=== PATIENT | male | born 1950 | race Caucasian/White ===

== ENCOUNTER 2017-01-18 15:33 | Inpatient (IN) | payer MEDICARE, OTHER ==
[2017-01-18 15:39] VITALS: BMI 29.2
[2017-01-18] MEDS ORDERED: Sodium Chloride 0.9% 1,000 ML IV STA (16:48)
[2017-01-18 17:50] LABS: MEAN CELL VOLUME 63.6 fL (80.0-105.0); MEAN CORPUSCULAR HEMOGLOBIN 18.2 pg (25.0-35.0); MEAN CORPUSCULAR HGB CONC 28.6 g/dl (31.0-37.0); MEAN PLATELET VOLUME 8.1 fl (7.0-11.0); PLATELET COUNT 292 10^3/uL (120.0-450.0); RED CELL DISTRIBUTION WIDTH 19.8 % (11.5-14.5); WHITE BLOOD COUNT 7.8 10^3/ul (4.5-11.0)
[2017-01-18 17:53] LABS: HEMATOCRIT 19.9 % (42.0-52.0)
[2017-01-18 17:54] LABS: ADD MANUAL DIFF? YES
--- NOTE | 2017-01-18 18:02 | ED PDOC ---
Arrival/HPI - General Chief Complaint: Shortness Of Breath Time Seen by Provider: 01/18/17 16:44 - History of Present Illness Narrative History of Present Illness (Text): 01/18/17 17:58 66-year-old male with a history of anemia in the past, presents emergency Department with shortness of breath and dyspnea on exertion. Patient states that this feels identical to his previous anemia. Patient states that there are no relieving or exacerbating symptoms. Reports that he has had an endoscopy and colonoscopy in the past with no evidence of ulcers or malignancy. Patient states that he has had multiple blood transfusions in the past as well. Denies any chest pain. Past Medical History - Provider Review Nursing Documentation Reviewed: Yes - Infectious Disease Hx of Infectious Diseases: None - Cardiac Hx Hypertension: Yes - Pulmonary Hx Asthma: Yes Hx Chronic Obstructive Pulmonary Disease (COPD): Yes - Neurological Hx Neurological Disorder: No Other/Comment: sciatic nerve problems - HEENT Hx HEENT Disorder: Yes (WEARS GLASSES FOR VISION) - Renal Hx Renal Disorder: No - Endocrine/Metabolic Hx Endocrine Disorders: Yes Hx Diabetes Mellitus Type 2: Yes - Hematological/Oncological Hx Anemia: Yes - Integumentary Hx Dermatological Disorder: No - Musculoskeletal/Rheumatological Hx Arthritis: Yes Hx Osteoporosis: Yes Hx Rheumatoid Arthritis: Yes - Gastrointestinal Other/Comment: blood in stool "a long time ago" - Genitourinary/Gynecological Hx Genitourinary Disorders: No - Psychiatric Hx Psychophysiologic Disorder: No Hx Substance Use: No - Surgical History Hx Coronary Stent: Yes (6 STENT) - Anesthesia Hx Anesthesia: Yes Hx Anesthesia Reactions: No Hx Malignant Hyperthermia: No - Suicidal Assessment Feels Threatened In Home Enviroment: No Family/Social History Family/Social History: No Known Family HX Smoking Status: Former Smoker Hx Alcohol Use: No Hx Substance Use: No Allergies/Home Meds Allergies/Adverse Reactions: Allergies No Known Allergies Allergy (Verified 01/18/17 15:39) Home Medications: Home Meds Medication Instructions Recorded Confirmed Adalimumab [Humira Pen] 10/14/16 Albuterol 0.083% [Albuterol 0.083% 3 ml IH PRN PRN 10/14/16 10/14/16 Inhal Darleen (2.5 mg/3 ml) UD] Amlodipine/Valsartan [Exforge 1 each PO DAILY 10/14/16 10/14/16 5-320 mg Tablet] Fluticasone/Vilanterol [Breo 1 pow IH PRN PRN 10/14/16 10/14/16 Ellipta 100-25 Mcg INH] Isosorbide Mononitrate [Imdur] 30 mg PO BID 10/14/16 10/14/16 Linagliptin [Tradjenta] 5 mg PO BID 10/14/16 10/14/16 Metoprolol Tartrate [Lopressor] 25 mg PO DAILY 10/14/16 10/14/16 Montelukast [Singulair] 10 mg PO HS 10/14/16 10/14/16 Ranolazine [Ranexa] 500 mg PO DAILY 10/14/16 10/14/16 Ticagrelor [Brilinta] 90 mg PO BID 10/14/16 10/14/16 Umeclidinium [place] [Incruse 1 puff PO PRN PRN 10/14/16 10/14/16 Ellipta] Physical Exam - Physical Exam Narrative Physical Exam (Text): - Review of Systems Constitutional: Normal. absent: Fatigue, Weight Change, Fevers Eyes: Normal ENT: denies sore throat, denies tristhmus Respiratory: SOB, LYONS. absent: Cough, Sputum Cardiovascular: absent: Chest Pain, Palpitations, Syncope Gastrointestinal: Normal. absent: Abdominal Pain, Diarrhea, Nausea, Vomiting Genitourinary: Normal. absent: Dysuria, Frequency, Hematuria Musculoskeletal: Normal. absent: Arthralgias, Back Pain, Neck Pain Skin: no rashes, no erythema Neurological: absent: Focal Weakness Endocrine: Normal Hemo/Lymphatic: Normal Psychiatric: No suicidal or homicidal ideations Physical exam Patient appears age appropriate in no distress, speaking full sentences without difficulty - Systems Exam Head: Present: Atraumatic, Normocephalic Pupils: Present: PERRL Extroacular Muscles: Present: EOMI Conjunctiva: Present: Normal Mouth: Present: Moist Mucous Membranes Neck: Present: Normal Range of Motion. No: MIDLINE TENDERNESS, Paraspinal Tenderness Respiratory/Chest: Present: Clear to Auscultation, Good Air Exchange. No: Respiratory Distress, Accessory Muscle Use, Tachypneic Cardiovascular: Present: Regular Rate and Rhythm, Normal S1, S2, Peripheal Pulses Present. No: Murmurs Abdomen: Present: Normal Bowel Sounds. No: Tenderness, Distention, Peritoneal Signs, Rebound, Guarding Back: Present: Normal Inspection. No: Midline Tenderness, Paraspinal Tenderness Upper Extremity: Present: Normal Inspection. No: Cyanosis, Edema Lower Extremity: Present: Normal Inspection. No: Edema Neurological: Present: GCS=15, Speech Normal, cranial nerves II through XII fully intact with no cerebellar abnormality, neurosensory fully intact. No focal neurological deficits. Skin: Present: Warm, Dry, Normal Color. No: Rashes Lymphatic: Present: OX3, NI, NC Psychiatric: Present: Alert, Oriented x 3, Normal Insight, Normal Concentration Vital Signs Reviewed: Yes Vital Signs Temp Pulse Resp BP Pulse Ox 01/18/17 17:06 89 18 116/69 99 01/18/17 15:43 98.3 F 98 H 18 118/71 99 Temperature: Afebrile Blood Pressure: Normal Pulse: Regular Respiratory Rate: Normal Appearance: Positive for: Well-Appearing Pain Distress: None Mental Status: Positive for: Alert and Oriented X 3 Medical Decision Making ED Course and Treatment: 01/18/17 18:02 66-year-old male with history of anemia and transfusions in the past, presents with shortness of breath and dyspnea and exertion. Guaiac negative, performed by Dulce GAVIN Case discussed with Dr. Drake, agrees with telemetry admission and transfusion of 3 units PRBCs. Patients vital signs stable, currently no distress, aware of and agrees with plan. EKG, sinus tach, 100 bpm, no ST segment elevations, normal intervals. Interpreted by me. Chest xray interpreted by ED physician shows no pneumothorax, no cardiomegaly, no infiltrates - Lab Interpretations Lab Results: 01/18/17 17:35 Lab Results 01/18/17 17:35: WBC 7.8, RBC 3.13 L, Hgb 5.7 L*, Hct 19.9 L*, MCV 63.6 L, MCH 18.2 L, MCHC 28.6 L, RDW 19.8 H, Plt Count 292, MPV 8.1, Neutrophils % (Manual) Pending, Lymphocytes % (Manual) Pending, Monocytes % (Manual) Pending, Blood Type Pending, Antibody Screen Pending, BBK History Checked Patient has bt - RAD Interpretation Radiology Orders: 01/18/17 16:47 CHEST PORTABLE [RAD] Stat - Medication Orders Current Medication Orders: Discontinued Medications Sodium Chloride (Sodium Chloride 0.9%) 1,000 mls @ 1,000 mls/hr IV .Q1H STA Stop: 01/18/17 17:47 Pantoprazole Sodium (Protonix Inj) 40 mg IVP STAT STA Stop: 01/18/17 16:49 Disposition/Present on Arrival - Present on Arrival Any Indicators Present on Arrival: No History of DVT/PE: No History of Uncontrolled Diabetes: No Urinary Catheter: No History of Decub. Ulcer: No History Surgical Site Infection Following: None - Disposition Have Diagnosis and Disposition been Completed?: Yes Diagnosis: Anemia Disposition: HOSPITALIZED Disposition Time: 17:58 Patient Plan: Admission Patient Problems: Current Active Problems Problem Status Diagnosed Anemia Acute Condition: FAIR
[2017-01-18 18:06] LABS: ALB/GLOB RATIO 1.4 (1.1-1.8); ALKALINE PHOSPHATASE 65 U/L (38-133); ALT/SGPT 14 U/L (7-56); AST/SGOT 78 U/L (15-59); BILIRUBIN,TOTAL 0.5 mg/dL (0.2-1.3); BLOOD UREA NITROGEN 15 mg/dL (7-21); CALCIUM 8.6 mg/dL (8.4-10.5); CARBON DIOXIDE 26 mmol/L (21-33); CHLORIDE 102 mmol/L (98-107); GFR AFRICAN-AMERICAN > 60; GLUCOSE,RANDOM 114 mg/dL (70-110); INR 0.99 (0.93-1.08); PARTIAL THROMBOPLASTIN TIME 24.5 Seconds (23.7-30.8); POTASSIUM 4.1 mmol/L (3.6-5.0); SODIUM 139 mmol/L (132-148); TOTAL PROTEIN 6.7 g/dL (5.8-8.3)
[2017-01-18 18:20] LABS: TROPONIN I < 0.01 ng/mL
[2017-01-18 18:50] LABS: ANISOCYTOSIS SLIGHT; EOSINOPHIL 3 % (0.0-3.0); HYPOCHROMIA 3+; MICROCYTOSIS 1+; NEUTROPHIL 79 % (50.0-70.0); PLATELET ESTIMATE NORMAL (NORMAL)
[2017-01-18 18:51] LABS: OVALOCYTES 1+; STOMATOCYTE SLIGHT
[2017-01-18 20:22] LABS: IRON 12 ug/dL (45-180)
--- NOTE | 2017-01-18 20:54 | CARD ---
APPROVED REPORT EKG Measurement Heart [id number] <Conclusion> Sinus tachycardia Otherwise normal ECG
[2017-01-18] MEDS ORDERED: Levalbuterol 1.25 MG/3 ML Inhal Soln UD IH PRN (21:58)
[2017-01-18 22:12] LABS: FOLATE > 20.0 ng/mL
[2017-01-18] MEDS ORDERED: Iron Sucrose 100 mg/5 ml Inj (RENAL) IVP SCH (22:15)
[2017-01-19] MEDS: Insulin Lispro (humaLOG) MEDIUM Coverage SC SCH ×4 (08:03→21:55)
--- NOTE | 2017-01-19 08:29 | RAD ---
HISTORY: cough COMPARISON: No prior. FINDINGS: LUNGS: Linear hazy opacities or infiltrate at the right lower lung may represent prominent lung markings which also. PLEURA: No significant pleural effusion identified, no pneumothorax apparent. CARDIOVASCULAR: The cardiac silhouette is prominent in size. Coronary artery calcification are noted. OSSEOUS STRUCTURES: No significant abnormalities. VISUALIZED UPPER ABDOMEN: Normal. OTHER FINDINGS: None. IMPRESSION: Questionable small opacity at the right lower lung. Correlate clinically for pneumonia.
--- NOTE | 2017-01-19 08:39 | HP ---
HISTORY OF PRESENT ILLNESS: The patient is a 66-year-old, known to me from office practice, who came to Emergency Room because of generalized weakness, feeling very tired with shortness of breath with minimal activity. Denies any fever or chills. No history of nausea but generalized weakness. He wa s admitted in 10/2016. At that point, he had GI bleed. He had endoscopy and colonoscopy done and wa s found to have bleeding ulcer. Prior to that, he had cardiac cath done and he has a drug-eluting st ent to [facility]. At that point, he was started on Brilinta because of his active GI bleed. His Brilinta was discontinued; however, he was kept on Plavix and aspirin, and he was given high dose PPI with Car afate. PAST MEDICAL HISTORY: Also significant for: 1. Hypertension. 2. Hyperlipidemia. 3. History of gastrointestinal bleed in the past. 4. Status post bleeding ulcer. 5. History of pulmonary hypertension. ALLERGIES: He is not allergic to any medications. MEDICATIONS AT HOME: 1. He is on Ellipta. 2. He is on Brilinta 90 mg twice a day. 3. Ranexa 500 daily. 4. Protonix 40 twice a day. 5. Singulair 10 mg at bedtime. 6. Metoprolol 25 daily. 7. Tradjenta 5 mg twice a day. 8. He is getting Exforge. 9. He is getting Humira via pen. SOCIAL HISTORY: He is , lives with his . History of smoking in the past. REVIEW OF SYSTEMS: Significant for generalized weakness and lethargy. PHYSICAL EXAMINATION: GENERAL: Looks pale, tired, mild shortness of breath. VITAL SIGNS: He is afebrile, pulse 84, respirations 16, blood pressure 141/60. LUNGS: Bilateral fair airflow, no rhonchi or crackle. HEART: S1, S2 audible. ABDOMEN: Soft, obese, nontender, no rebound, no guarding. NEUROLOGIC: He is awake and alert and communicative. LABORATORY DATA: WBC 7.8, hemoglobin 5.7, hematocrit 19, platelet of 292. PT 10.7, INR 0.99. Chemi stry: Sodium 139, potassium 4.1, chloride 102, CO2 26, BUN 15, creatinine 1.4. Blood sugar of 114. Iron 12, TIBC is 423. ASSESSMENT: 1. Symptomatic anemia. 2. Probably bleeding ulcer. 3. Coronary artery disease, status post angioplasty and had drug-eluting stent placed in right coron hermelinda artery. 4. Ttp-[id number]-epjvulwqd diabetes. 5. Status post proximal left anterior descending angioplasty. 6. Status post angioplasty of obtuse marginal branch of left circumflex, status post mid right coron hermelinda artery stent. 7. Hyperlipidemia. 8. Chronic obstructive pulmonary disease. PLAN: The patient will be given 3 blood transfusions. He will be started on his usual medications i ncluding Ranexa, isosorbide, Lasix, metoprolol, Plavix. He will be given high dose PPI, Protonix 40 q. 12. I will start him on Carafate. Follow up his H and H in the a.m. Cardiology consult by Dr. Arnaud quan, GI consult by Dr. Leavitt and oncology consult by Dr. Castorena has been requested. Will follow up his CBC and CMP in the a.m. Will reevaluate this patient in the a.m. Arlette Drake MD cc: [phone] TT: 01/19/2017 08:38:57 fallon
[2017-01-19] MEDS ORDERED: Barium Sulfate Susp 2.1% w/v, 2.0% w/w 450 mL Bottle PO ONE (09:08)
[2017-01-19] MEDS ORDERED: Iohexol 350 MG/100 ML VIAL ONE (09:20)
--- NOTE | 2017-01-19 10:03 | CON ---
DATE: 01/19/2017 REQUESTED BY: Dr. Drake. REASON FOR CONSULTATION: Severe anemia, GI bleed. HISTORY OF PRESENT ILLNESS: The patient is a 66-year-old male admitted to the ER with hemoglobin of 5 g/dL and shortness of breath. He had a similar episode a few years old when he received blood transfusion. He had endoscopy done in which was negative for any source of bleeding. He also had colonoscopy done in 2014 which was negative for bleeding source. He noticed dark-colored stools for a week a month ago. Denies any abdominal pain. No shortness of breath. He also has history of rheumatoid arthritis. He is taking humira twice a month, sees Dr. Vera for that. Rheumatoid arthritis is under control. He also has coronary artery disease for which he takes Brilinta and aspirin. Recent cardiac stents. No issues right now, stable disease. He also has COPD for which he occasionally gets oral steroids. No recent exacerbation now. PAST MEDICAL HISTORY: COPD, CAD, rheumatoid arthritis, diabetes mellitus type 2 , osteoporosis. PAST SURGICAL HISTORY: Coronary artery stent placed. PERSONAL HISTORY: Former smoker. No history of alcohol abuse. SOCIAL HISTORY: Lives at home. FAMILY HISTORY: No positive family history in mother or father. ALLERGIES: No known drug allergies. REVIEW SYSTEMS : as per HPI, rest 12 point system reviewed negative. HOME MEDICATIONS: Humira twice a month. Amlodipine/valsartan 5/320 mg 1 daily , Imdur 30 mg p.o. b.i.d., Tradjenta 5 mg p.o. b.i.d., metoprolol 25 mg daily, Singulair 10 mg p.o. at bedtime, Ranexa 500 mg daily, Brilinta 90 mg p.o. b.i.d. REVIEW OF SYSTEMS: As per HPI. Rest of 12-point review of systems reviewed and negative. PHYSICAL EXAMINATION: GENERAL: Comfortable in bed, in no acute distress. VITAL SIGNS: Temperature 98.6, heart rate 98 per minute, respiratory 15 per minute, blood pressure 110/70, pulse ox is 99% on room air. HEENT: Normal. Oral mucosa pale. Moist. NECK: No lymphadenopathy. CHEST: Air entry present, equal bilateral. No added sound. CARDIOVASCULAR: S1, S2 normal. No murmur, no gallop. ABDOMEN: Soft, nontender, no hepatosplenomegaly. EXTREMITIES: No edema. SKIN: Intact. No petechia, no rashes. CENTRAL NERVOUS SYSTEM: Alert, oriented x 3, no focal sensorimotor deficit. SPINE: No tenderness. SKIN: no rash, no petechie. LABORATORY DATA: White count 7.8, hemoglobin 5.7, hematocrit 19.9, platelet count 298. Sodium 139, potassium 4.1, calcium 8.6. Iron 12, percentage saturation 3%. AST 78, ALT 14, alkaline phosphatase 65. B12 409, folate more than 20. Coags within normal limit. ASSESSMENT: 1. Severe iron deficiency anemia. 2. Possible gastrointestinal bleed. 3. Rheumatoid arthritis. 4. Hypertension. 5. Coronary artery disease. 6. Chronic obstructive pulmonary disease. PLAN: 1. Anemia, multifactorial, severe iron deficiency, might be related to chronic GI bleed. He might have iron absorption defect due to chronic disease. He is on Humira which predisposes for non-Hodgkin's lymphoma. We will do CAT scan chest, abdomen, and pelvis to rule out occult malignancy. He will need continuation of IV iron on discharge from the hospital. B12, folate levels are within normal limits. He received 3 units of blood transfusion since admission to the hospital. He had EGD and colonoscopy with Dr. Patterson in [place] at [facility]. He is scheduled for capsule endoscopy on 01/26/2017 and I advised him to keep that appointment. He will need capsule endoscopy to find the source of occult GI bleed. GI consultation with Dr. Leavitt requested. CAT scan chest, abdomen, and pelvis with p.o. and IV contrast ordered. Discussed all of the above with the patient. 2. COPD, no issues right now. 3. CAD, stable on aspirin, plavix. cannot hold both due to recent cardiac stents , discussed with Dr. Drake. 4. Pulmonary : stable. 5. Rheumatoid arthritis: on humira twice a month. Humira may increase the risk of NHL. CT scans to r/o any suspicious lesions. 6. renal : BUN, creatinine stable. Thank you, Dr. Drake, for allowing us to participate in the patient's care. Sandi Castorena MD cc: [id number] TT: 01/19/2017 09:58:50 Confirmation # [id number] Dictation # [id number] tn 01/19/2017 09:02:39 MTDD
[2017-01-19 11:00] LABS: ADD MANUAL DIFF? NO
[2017-01-19 11:03] LABS: BASO # 0.02 K/mm3 (0.0-2.0); BASO % 0.2 % (0.0-3.0); EOS # 0.3 (0.0-0.7); EOS % 2.9 % (1.5-5.0); GRAN # 6.45 (1.4-6.5); GRAN % 73.9 % (50.0-68.0); LYMPH # 0.9 (1.2-3.4); LYMPH % 10.6 % (22.0-35.0); MEAN CELL VOLUME 69.4 fL (80.0-105.0); MEAN CORPUSCULAR HEMOGLOBIN 21.8 pg (25.0-35.0); MEAN CORPUSCULAR HGB CONC 31.4 g/dl (31.0-37.0); MONO # 1.1 (0.1-0.6); MONO % 12.4 % (1.0-6.0); PLATELET COUNT 219 10^3/uL (120.0-450.0); RED CELL DISTRIBUTION WIDTH 21.6 % (11.5-14.5); WHITE BLOOD COUNT 8.7 10^3/ul (4.5-11.0)
[2017-01-19 11:13] LABS: ALB/GLOB RATIO 1.3 (1.1-1.8); ALKALINE PHOSPHATASE 65 U/L (38-133); ALT/SGPT 7 U/L (7-56); AST/SGOT 20 U/L (15-59); BLOOD UREA NITROGEN 12 mg/dL (7-21); CALCIUM 8.6 mg/dL (8.4-10.5); CARBON DIOXIDE 28 mmol/L (21-33); CHLORIDE 99 mmol/L (98-107); GFR AFRICAN-AMERICAN > 60; GLUCOSE,RANDOM 119 mg/dL (70-110); POTASSIUM 3.6 mmol/L (3.6-5.0); SODIUM 138 mmol/L (132-148)
--- NOTE | 2017-01-19 14:09 | PN ---
DATE: 01/19/2017 The patient is 66 years old. The patient stated he has not been feeling well for a few days, getting easily short of breath and he felt just like that when he had GI bleed late last year. So, he came to ER, was found to have hemoglobin of 5.8. Received 3 blood transfusions, feels a little better. S till has shortness of breath. No chest pain. Received 3 blood transfusions overnight. PHYSICAL EXAMINATION: VITAL SIGNS: He is afebrile, pulse 76, respirations 18, blood pressure 116/67. LUNGS: Bilateral fair airflow, no rhonchi or crackle. HEART: S1, S2 audible. ABDOMEN: Soft, obese, nontender. No rebound, no guarding. NEUROLOGIC: The patient is awake and alert, able to communicate, moves all extremities. LABORATORY EXAM: WBC is 8.7, hemoglobin 9.1, hematocrit 29, platelet is 219. Chemistry: Sodium 138 , potassium 3.6, chloride 99, CO2 of 28, BUN 12, creatinine 1.4. Blood sugar is 119. Iron level is 12, saturation is 3. Stool for Hemoccult is positive. ASSESSMENT AND PLAN: 1. Coronary artery disease, status post recent angioplasty. 2. History of rheumatoid arthritis, on Humira. He gets it from Dr. Vera twice a month. 3. Gastrointestinal bleed status post endoscopy and colonoscopy late last year. He was scheduled to have capsule endoscopy done by Dr. Dunn as a followup, but he never got a chance to go there. 4. Hypertension. 5. Hyperlipidemia. 6. Smt-jpieksn-xvmsdnvtr diabetes. PLAN: The question is that should we start patient on aspirin and Plavix. Since he had a stent plac ed late last year, he should be on anticoagulant. Awaiting cardiology input and GI input. ____ has been consulted and awaiting his input. The patient scheduled to have CT scan of the abdomen and pelvis done to rule out lymphadenopathy, rule out underlying lymphoma because of immunomodulators. Richa damon will follow up CBC and CMP in a.m. Arlette Drake MD cc: [phone] TT: 01/19/2017 14:09:04 Confirmation # [id number] Dictation # [id number]
[2017-01-19] MEDS: Non Formulary Medication (Ranolazine [Ranexa] 500 MG) PO SCH (14:28)
[2017-01-19] MEDS: Sucralfate 1 gm/10 ml Oral Susp UD PO SCH ×2 (14:29→17:31)
--- NOTE | 2017-01-19 14:31 | CP.PCM.CON ---
History of Present Illness - History of Present Illness History of Present Illness: CC: Shortness of breath Chronic medical conditions 1. Atherosclerotic heart disease 2. Rheumatoid arthritis 3. COPD 4. HTN Presents to [facility] with increased faitgue and shortenss of breath. This is occuring in the context of severe anemia. He is reporting improvement in fatigue after PRBC transfusion. He is denying angina. Review of Systems - Review of Systems All systems: reviewed and no additional remarkable complaints except Past Patient History - Infectious Disease Hx of Infectious Diseases: None - Past Medical History & Family History Past Medical History?: Yes - Past Social History Smoking Status: Former Smoker - CARDIAC Hx Cardiac Disorders: Yes Hx Hypercholesterolemia: Yes Hx Hypertension: Yes - PULMONARY Hx Respiratory Disorders: Yes Hx Asthma: Yes Hx Chronic Obstructive Pulmonary Disease (COPD): Yes - NEUROLOGICAL Hx Neurological Disorder: No Other/Comment: sciatica - HEENT Hx HEENT Problems: No (wears glasses) - RENAL Hx Chronic Kidney Disease: No - ENDOCRINE/METABOLIC Hx Endocrine Disorders: Yes Hx Diabetes Mellitus Type 2: Yes - HEMATOLOGICAL/ONCOLOGICAL Hx Blood Disorders: Yes Hx Anemia: Yes (with transfusion) - INTEGUMENTARY Hx Dermatological Problems: No - MUSCULOSKELETAL/RHEUMATOLOGICAL Hx Musculoskeletal Disorders: Yes Hx Arthritis: Yes Hx Falls: No Hx Osteoarthritis: Yes Hx Spinal Stenosis: Yes Other/Comment: RA - GASTROINTESTINAL Hx Gastrointestinal Disorders: Yes Other/Comment: GI bleed, duodenitis, esophagitis, gastritis - GENITOURINARY/GYNECOLOGICAL Hx Genitourinary Disorders: No - PSYCHIATRIC Hx Psychophysiologic Disorder: No Hx Substance Use: No - SURGICAL HISTORY Hx Surgeries: No Hx Cardiac Catheterization: Yes Hx Coronary Stent: Yes Other/Comment: EGD, colonoscopy - ANESTHESIA Hx Anesthesia: Yes Hx Anesthesia Reactions: No Hx Malignant Hyperthermia: No Meds Allergies/Adverse Reactions: Allergies Allergy/AdvReac Type Severity Reaction Status Date / Time No Known Allergies Allergy Verified 01/18/17 15:39 - Medications Medications: Current Medications Amlodipine Besylate (Norvasc) 10 mg PO DAILY [facility] Last Admin: 01/19/17 10:15 Dose: 10 mg Aspirin (Ecotrin) 81 mg PO DAILY [facility] Last Admin: 01/19/17 12:00 Dose: Not Given Clopidogrel Bisulfate (Plavix) 75 mg PO DAILY [facility] Last Admin: 01/19/17 12:01 Dose: Not Given Furosemide (Lasix) 40 mg IVP DAILY [facility] Last Admin: 01/19/17 10:15 Dose: 40 mg Insulin Human Lispro (Humalog Med) 0 units SC ACHS DONNY PRN Reason: Protocol Last Admin: 01/19/17 13:52 Dose: Not Given Isosorbide Mononitrate (Imdur) 30 mg PO BID [facility] Last Admin: 01/19/17 10:15 Dose: 30 mg Levalbuterol HCl (Xopenex) 1.25 mg IH [id number] PRN PRN Reason: Shortness of Breath Metoprolol Tartrate (Lopressor) 25 mg PO DAILY [facility] Last Admin: 01/19/17 10:15 Dose: 25 mg Montelukast Sodium (Singulair) 10 mg PO HS [facility] Last Admin: 01/19/17 00:33 Dose: 10 mg Non-Formulary Medication (Ranolazine [Ranexa]) 500 mg PO DAILY [facility] Ondansetron HCl (Zofran Inj) 4 mg IVP Q6H PRN PRN Reason: Nausea/Vomiting Pantoprazole Sodium (Protonix Inj) 40 mg IVP BID [facility] Last Admin: 01/19/17 10:16 Dose: 40 mg Sucralfate (Carafate Oral Susp) 1 gm PO TID [facility] Physical Exam - Constitutional Appears: Well, Non-toxic - Head Exam Head Exam: ATRAUMATIC, NORMAL INSPECTION - Eye Exam Eye Exam: PERRL. absent: Scleral icterus - ENT Exam ENT Exam: Mucous Membranes Moist, Normal External Ear Exam - Neck Exam Neck exam: Positive for: Full Rom. Negative for: Thyromegaly - Respiratory Exam Respiratory Exam: Wheezes, NORMAL BREATHING PATTERN - Cardiovascular Exam Cardiovascular Exam: REGULAR RHYTHM, +S1, +S2, +S4. absent: JVD - GI/Abdominal Exam GI & Abdominal Exam: Normal Bowel Sounds. absent: Organomegaly Results - Vital Signs Recent Vital Signs: Last Vital Signs Temp 98.4 F 01/19/17 12:00 Pulse 74 01/19/17 12:00 Resp 20 01/19/17 12:00 BP 120/71 01/19/17 12:00 Pulse Ox 96 01/19/17 05:15 - Labs Result Diagrams: 01/19/17 20:21 01/19/17 10:45 Labs: Laboratory Results - last 24 hr 01/19/17 01/19/17 10:45 11:17 WBC 8.7 RBC 4.18 Hgb 9.1 L Hct 29.0 L MCV 69.4 L MCH 21.8 L MCHC 31.4 RDW 21.6 H Plt Count 219 MPV 8.0 Gran % 73.9 H Lymph % (Auto) 10.6 L [place] % (Auto) 12.4 H Eos % (Auto) 2.9 Baso % (Auto) 0.2 Gran # 6.45 Lymph # 0.9 L [place] # 1.1 H Eos # 0.3 Baso # 0.02 Sodium 138 Potassium 3.6 Chloride 99 Carbon Dioxide 28 Anion Gap 15 BUN 12 Creatinine 1.4 Est GFR ( Amer) > 60 Est GFR (Non-Af Amer) 51 Random Glucose 119 H Calcium 8.6 Total Bilirubin 1.0 AST 20 ALT 7 Alkaline Phosphatase 65 Total Protein 7.0 Albumin 4.0 Globulin 3.0 Albumin/Globulin Ratio 1.3 Stool Occult Blood Positive H - EKG Data EKG Interpreted by: Myself EKG shows normal: Sinus rhythm Assessment & Plan - Assessment and Plan (Free Text) Assessment: 66 year old man with acute blood loss anemia due to upper GI bleed. He has received several units of PRBC. He GI pathology is unmasked by his need for dual antiplatelet therapy. This is for a drug eluting stent placed less than 12 months ago. continue transfusion support as long as he is actively bleeding. GI work up is pending. I agree with holding anti platelet until active bleeding is treated. - Date & Time Date: 01/19/17 Time: 14:33
--- NOTE | 2017-01-19 14:38 | CP.PCM.CON ---
<Chriss Armijo - Last Filed: 01/19/17 18:14> History of Present Illness - History of Present Illness History of Present Illness: PGY4 GI Fellow Consult Note Patient is a 66yo male with PMHx significant for HTN, HLD, PUD, pulmonary hypertension, CAD, diabetes mellitus, COPD who presented to the ED with complaint of generalized malaise and shortness of breath. Patient has a history of anemia requiring transfusions with extensive GI work up including recent EGD in October 2016 which revelaed LA class B esophagitis and a FC3 gastric ulcer. Colonoscopy in 2014 was unremarkable with the exception of two polyps. He has had persistently positive FOBT. Patient is scheduled for outpatient capsule endoscopy on 01/26/17. In the days leading up to admission he became progressively more fatigued and SOB, which signaled to him that he was becomming more anemic. He admits that walking outside is difficult under the best of circumstances as the cold air affects his asthma/COPD but it had worsened more than usual prompting his ED visit. On arrival, lab work revealed a HGB of 5.7. He has since been transfused 3 units PRBCs and is feeling better at this time. Denies any melena, hematochezia, hematemesis, hematuria. PMHx: See HPI PSHx: PCI with MICHOACANO to RCA FHx: Mother - HTN Social: Prior smoker, denies EtOH or illicit drug use Endo: 10/2016 - EGD - LA Class B esophagitis, PUD (gastric ulcer) 10/2015 - Colonoscopy - Transverse colon polyp (tubular adenoma) Review of Systems - Constitutional Constitutional: Fatigue, Weakness. absent: Anorexia, Chills, Fever, Weight Gain , Weight Loss - EENT Eyes: absent: Change in Vision Nose/Mouth/Throat: absent: Sore Throat - Cardiovascular Cardiovascular: absent: Chest Pain, Dyspnea - Respiratory Respiratory: absent: Cough, Dyspnea, Excessive Mucous Production - Gastrointestinal Gastrointestinal: absent: Abdominal Pain, Constipation, Cramping, Diarrhea, Dysphagia, Hematemesis, Hematochezia, Melena, Nausea, Odynophagia, Vomiting - Genitourinary Genitourinary: absent: Dysuria, Urinary Frequency, Urinary Urgency - Integumentary Integumentary: absent: New Lesions, Rash - Neurological Neurological: absent: Dizziness, Numbness, Focal Weakness - Psychiatric Psychiatric: absent: Anxiety, Depression - Endocrine Endocrine: absent: Polydipsia, Polyphagia, Polyuria - Hematologic/Lymphatic Hematologic: absent: Easy Bleeding, Easy Bruising, Lymphadenopathy Past Patient History - Infectious Disease Hx of Infectious Diseases: None - Past Medical History & Family History Past Medical History?: Yes - Past Social History Smoking Status: Former Smoker - CARDIAC Hx Cardiac Disorders: Yes Hx Hypercholesterolemia: Yes Hx Hypertension: Yes - PULMONARY Hx Respiratory Disorders: Yes Hx Asthma: Yes Hx Chronic Obstructive Pulmonary Disease (COPD): Yes - NEUROLOGICAL Hx Neurological Disorder: No Other/Comment: sciatica - HEENT Hx HEENT Problems: No (wears glasses) - RENAL Hx Chronic Kidney Disease: No - ENDOCRINE/METABOLIC Hx Endocrine Disorders: Yes Hx Diabetes Mellitus Type 2: Yes - HEMATOLOGICAL/ONCOLOGICAL Hx Blood Disorders: Yes Hx Anemia: Yes (with transfusion) - INTEGUMENTARY Hx Dermatological Problems: No - MUSCULOSKELETAL/RHEUMATOLOGICAL Hx Musculoskeletal Disorders: Yes Hx Arthritis: Yes Hx Falls: No Hx Osteoarthritis: Yes Hx Spinal Stenosis: Yes Other/Comment: RA - GASTROINTESTINAL Hx Gastrointestinal Disorders: Yes Other/Comment: GI bleed, duodenitis, esophagitis, gastritis - GENITOURINARY/GYNECOLOGICAL Hx Genitourinary Disorders: No - PSYCHIATRIC Hx Psychophysiologic Disorder: No Hx Substance Use: No - SURGICAL HISTORY Hx Surgeries: No Hx Cardiac Catheterization: Yes Hx Coronary Stent: Yes Other/Comment: EGD, colonoscopy - ANESTHESIA Hx Anesthesia: Yes Hx Anesthesia Reactions: No Hx Malignant Hyperthermia: No Meds Allergies/Adverse Reactions: Allergies Allergy/AdvReac Type Severity Reaction Status Date / Time No Known Allergies Allergy Verified 01/18/17 15:39 - Medications Medications: Current Medications Amlodipine Besylate (Norvasc) 10 mg PO DAILY [facility] Last Admin: 01/19/17 10:15 Dose: 10 mg Aspirin (Ecotrin) 81 mg PO DAILY [facility] Last Admin: 01/19/17 12:00 Dose: Not Given Clopidogrel Bisulfate (Plavix) 75 mg PO DAILY [facility] Last Admin: 01/19/17 12:01 Dose: Not Given Furosemide (Lasix) 40 mg IVP DAILY [facility] Last Admin: 01/19/17 10:15 Dose: 40 mg Insulin Human Lispro (Humalog Med) 0 units SC ACHS [facility] PRN Reason: Protocol Last Admin: 01/19/17 13:52 Dose: Not Given Isosorbide Mononitrate (Imdur) 30 mg PO BID [facility] Last Admin: 01/19/17 10:15 Dose: 30 mg Levalbuterol HCl (Xopenex) 1.25 mg IH [id number] PRN PRN Reason: Shortness of Breath Metoprolol Tartrate (Lopressor) 25 mg PO DAILY [facility] Last Admin: 01/19/17 10:15 Dose: 25 mg Montelukast Sodium (Singulair) 10 mg PO HS [facility] Last Admin: 01/19/17 00:33 Dose: 10 mg Non-Formulary Medication (Ranolazine [Ranexa]) 500 mg PO DAILY [facility] Last Admin: 01/19/17 14:28 Dose: Not Given Ondansetron HCl (Zofran Inj) 4 mg IVP Q6H PRN PRN Reason: Nausea/Vomiting Pantoprazole Sodium (Protonix Inj) 40 mg IVP BID [facility] Last Admin: 01/19/17 10:16 Dose: 40 mg Sucralfate (Carafate Oral Susp) 1 gm PO TID [facility] Last Admin: 01/19/17 14:29 Dose: 1 gm Physical Exam - Constitutional Appears: Non-toxic, No Acute Distress - Eye Exam Eye Exam: EOMI, PERRL - ENT Exam ENT Exam: Mucous Membranes Moist - Respiratory Exam Respiratory Exam: Clear to Auscultation Bilateral. absent: Rales, Rhonchi, Wheezes - Cardiovascular Exam Cardiovascular Exam: RRR, +S1, +S2 - GI/Abdominal Exam GI & Abdominal Exam: Normal Bowel Sounds, Soft. absent: Distended, Firm, Guarding, Organomegaly, Rigid, Tenderness - Extremities Exam Extremities exam: Positive for: normal inspection. Negative for: pedal edema - Neurological Exam Neurological exam: Alert, Oriented x3 - Psychiatric Exam Psychiatric exam: Normal Affect, Normal Mood - Skin Skin Exam: Dry, Warm Results - Vital Signs Recent Vital Signs: Last Vital Signs Temp 98.4 F 01/19/17 12:00 Pulse 74 01/19/17 12:00 Resp 20 01/19/17 12:00 BP 120/71 01/19/17 12:00 Pulse Ox 96 01/19/17 05:15 - Labs Result Diagrams: 01/19/17 10:45 01/19/17 10:45 Labs: Laboratory Results - last 24 hr 01/19/17 01/19/17 10:45 11:17 WBC 8.7 RBC 4.18 Hgb 9.1 L Hct 29.0 L MCV 69.4 L MCH 21.8 L MCHC 31.4 RDW 21.6 H Plt Count 219 MPV 8.0 Gran % 73.9 H Lymph % (Auto) 10.6 L [place] % (Auto) 12.4 H Eos % (Auto) 2.9 Baso % (Auto) 0.2 Gran # 6.45 Lymph # 0.9 L [place] # 1.1 H Eos # 0.3 Baso # 0.02 Sodium 138 Potassium 3.6 Chloride 99 Carbon Dioxide 28 Anion Gap 15 BUN 12 Creatinine 1.4 Est GFR ( Amer) > 60 Est GFR (Non-Af Amer) 51 Random Glucose 119 H Calcium 8.6 Total Bilirubin 1.0 AST 20 ALT 7 Alkaline Phosphatase 65 Total Protein 7.0 Albumin 4.0 Globulin 3.0 Albumin/Globulin Ratio 1.3 Stool Occult Blood Positive H Assessment & Plan - Assessment and Plan (Free Text) Assessment: Patient is a 66yo male with PMHx significant for HTN, HLD, PUD, pulmonary hypertension, CAD, diabetes mellitus, COPD who presented to the ED with complaint of generalized malaise and shortness of breath. -Acute blood loss anemia; suspect 2/2 ongoing slow GI losses Plan: -Patient has had prior EGD/colonoscopy -Scheduled for capsule endoscopy on 01/26/17, encourage patient to follow through with this examination -Discussed with Dr Drake, will monitor overnight and repeat HGB in AM -The patient is clear to be taking his ASA/Plavix; does not need to be held for his capsule endoscopy - Date & Time Date: 01/19/17 Time: 15:00 <Kendrick Terrazas - Last Filed: 01/19/17 20:47> Meds - Medications Medications: Current Medications Amlodipine Besylate (Norvasc) 10 mg PO DAILY [facility] Last Admin: 01/19/17 10:15 Dose: 10 mg Aspirin (Ecotrin) 81 mg PO DAILY [facility] Last Admin: 01/19/17 12:00 Dose: Not Given Clopidogrel Bisulfate (Plavix) 75 mg PO DAILY [facility] Last Admin: 01/19/17 12:01 Dose: Not Given Furosemide (Lasix) 40 mg IVP DAILY [facility] Last Admin: 01/19/17 10:15 Dose: 40 mg Insulin Human Lispro (Humalog Med) 0 units SC ACHS [facility] PRN Reason: Protocol Last Admin: 01/19/17 17:31 Dose: Not Given Isosorbide Mononitrate (Imdur) 30 mg PO BID [facility] Last Admin: 01/19/17 18:30 Dose: 30 mg Levalbuterol HCl (Xopenex) 1.25 mg IH [id number] PRN PRN Reason: Shortness of Breath Metoprolol Tartrate (Lopressor) 25 mg PO DAILY [facility] Last Admin: 01/19/17 10:15 Dose: 25 mg Montelukast Sodium (Singulair) 10 mg PO HS [facility] Last Admin: 01/19/17 00:33 Dose: 10 mg Non-Formulary Medication (Ranolazine [Ranexa]) 500 mg PO DAILY [facility] Last Admin: 01/19/17 14:28 Dose: Not Given Ondansetron HCl (Zofran Inj) 4 mg IVP Q6H PRN PRN Reason: Nausea/Vomiting Pantoprazole Sodium (Protonix Inj) 40 mg IVP BID [facility] Last Admin: 01/19/17 17:31 Dose: 40 mg Results - Vital Signs Recent Vital Signs: Last Vital Signs Temp 98.5 F 01/19/17 18:00 Pulse 74 01/19/17 18:00 Resp 20 01/19/17 18:00 BP 113/60 01/19/17 18:00 Pulse Ox 96 01/19/17 05:15 - Labs Result Diagrams: 01/19/17 20:21 01/19/17 10:45 Labs: Laboratory Results - last 24 hr 01/19/17 01/19/17 01/19/17 10:45 11:17 20:21 WBC 8.7 RBC 4.18 Hgb 9.1 L 9.1 L Hct 29.0 L 28.6 L MCV 69.4 L MCH 21.8 L MCHC 31.4 RDW 21.6 H Plt Count 219 MPV 8.0 Gran % 73.9 H Lymph % (Auto) 10.6 L [place] % (Auto) 12.4 H Eos % (Auto) 2.9 Baso % (Auto) 0.2 Gran # 6.45 Lymph # 0.9 L [place] # 1.1 H Eos # 0.3 Baso # 0.02 Sodium 138 Potassium 3.6 Chloride 99 Carbon Dioxide 28 Anion Gap 15 BUN 12 Creatinine 1.4 Est GFR ( Amer) > 60 Est GFR (Non-Af Amer) 51 Random Glucose 119 H Calcium 8.6 Total Bilirubin 1.0 AST 20 ALT 7 Alkaline Phosphatase 65 Total Protein 7.0 Albumin 4.0 Globulin 3.0 Albumin/Globulin Ratio 1.3 Stool Occult Blood Positive H Attending/Attestation - Attestation I have personally seen and examined this patient.: Yes I have fully participated in the care of the patient.: Yes I have reviewed all pertinent clinical information: Yes Notes (Text): 01/19/17 20:44 66 year old male with h/o HTN, HLD, PUD, pulmonary HTN, CAD, DM, COPD who presented to the ED with complaint of generalized malaise and shortness of breath. 1. Iron deficiency anemia 2. Peptic ulcer disease 3. Esophagitis Plan: -s/p prior EGD/colonoscopy with evidence of esophagitis/pud -awaiting outpatient VCE next week -no overt signs of GI bleeding -appropriate response to transfusion and stability of hemoglobin -hemodynamically stable -diet as tolerated -continue asa/plavix -continue PPI -ok to discharge if he remains stable overnight with follow up next week for capsule -will sign off at this time, but please contact with questions
--- NOTE | 2017-01-19 16:15 | CT ---
PROCEDURE: CT Chest, Abdomen and Pelvis with intravenous contrast HISTORY: r/o malignancy, hb 5 COMPARISON: None. TECHNIQUE: IV dose administered: Radiation dose: Total exam DLP = mGy-cm. FINDINGS: CT CHEST WITH CONTRAST: LUNGS: Clear. No nodule, mass or consolidation. Hyperinflation, findings consistent with COPD. MEDIASTINUM: Aneurysmal dilatation of the ascending aorta 4.4 cm in maximum diameter. Descending aorta measures 2.6 cm at its greatest widening.Cardiomegaly. No evidence of acute, significant cardiovascular disease. LYMPH NODES: Unremarkable. PLEURA: Unremarkable. No pneumothorax. No pleural fluid. BONES: Unremarkable. OTHER FINDINGS: None. CT ABDOMEN AND PELVIS: LIVER: Unremarkable. No gross lesion or ductal dilatation. GALLBLADDER AND BILE DUCTS: Unremarkable. PANCREAS: Unremarkable. No gross lesion or ductal dilatation. SPLEEN: Unremarkable. ADRENALS: Unremarkable. No mass. KIDNEYS AND URETERS: Unremarkable. No hydronephrosis. No solid mass. VASCULATURE: Unremarkable. No aortic aneurysm. BOWEL: Gastric wall thickening primarily affecting the body of the stomach. No focal mass identified. Differential considerations include gastritis and neoplasm the latter a more scirrhous type of a diffuse and infiltrating nature. Constipation without fecal impaction or obstruction. APPENDIX: Normal appendix. PERITONEUM: Unremarkable. No free fluid. No free air. LYMPH NODES: Unremarkable. No enlarged lymph nodes. BLADDER: Unremarkable. REPRODUCTIVE: Unremarkable. BONES: No acute fracture. OTHER FINDINGS: None. IMPRESSION: 1. Gastric wall thickening described above. Given the history of anemia follow-up recommended. Findings are nonspecific and can be seen in setting varying etiology is gastritis, neoplasm, gastric lymphoma. 2. Ascending thoracic aortic aneurysm.
[2017-01-19 20:24] LABS: HEMATOCRIT 28.6 % (42.0-52.0)
[2017-01-20 05:19] VITALS: TEMP 98.5; O2SAT 95
[2017-01-20 06:41] LABS: ADD MANUAL DIFF? NO
[2017-01-20 07:04] LABS: BASO # 0.03 K/mm3 (0.0-2.0); BASO % 0.3 % (0.0-3.0); EOS # 0.3 (0.0-0.7); EOS % 2.7 % (1.5-5.0); GRAN # 7.72 (1.4-6.5); GRAN % 70.7 % (50.0-68.0); HEMATOCRIT 30.2 % (42.0-52.0); LYMPH # 1.6 (1.2-3.4); LYMPH % 14.8 % (22.0-35.0); MEAN CELL VOLUME 69.3 fL (80.0-105.0); MEAN CORPUSCULAR HEMOGLOBIN 21.8 pg (25.0-35.0); MEAN CORPUSCULAR HGB CONC 31.5 g/dl (31.0-37.0); MEAN PLATELET VOLUME 8.3 fl (7.0-11.0); MONO # 1.3 (0.1-0.6); MONO % 11.5 % (1.0-6.0); PLATELET COUNT 243 10^3/uL (120.0-450.0); RED CELL DISTRIBUTION WIDTH 22.2 % (11.5-14.5); WHITE BLOOD COUNT 10.9 10^3/ul (4.5-11.0)
[2017-01-20 07:14] LABS: ALB/GLOB RATIO 1.2 (1.1-1.8); BILIRUBIN,TOTAL 0.7 mg/dL (0.2-1.3); CALCIUM 8.6 mg/dL (8.4-10.5); POTASSIUM 3.7 mmol/L (3.6-5.0)
[2017-01-20] MEDS: Insulin Lispro (humaLOG) MEDIUM Coverage SC SCH ×2 (08:06→13:00)
[2017-01-20] MEDS: Non Formulary Medication (Ranolazine [Ranexa] 500 MG) PO SCH (10:04)
[2017-01-20] MEDS: Sodium Chloride 0.45% 1,000 ML IV SCH ×2 (10:10→10:13)
[2017-01-20 12:09] VITALS: BP 135/88; RESP 20
--- NOTE | 2017-01-20 13:35 | CP.PCM.PN ---
Subjective - Date & Time of Evaluation Date of Evaluation: 01/20/17 Time of Evaluation: 13:30 - Subjective Subjective: Events reviewed. No obvious plan for repeat EGD. Objective - Vital Signs/Intake and Output Vital Signs (last 24 hours): Temp Pulse Resp BP Pulse Ox 98.5 F 94 H 20 135/88 95 01/20/17 12:00 01/20/17 12:00 01/20/17 12:00 01/20/17 12:00 01/20/17 05:19 Intake and Output: 01/20/17 01/20/17 06:59 18:59 Intake Total 780 Output Total 850 Balance -70 - Medications Medications: Current Medications Amlodipine Besylate (Norvasc) 10 mg PO DAILY [facility] Last Admin: 01/20/17 10:03 Dose: 10 mg Aspirin (Ecotrin) 81 mg PO DAILY [facility] Last Admin: 01/20/17 10:05 Dose: Not Given Clopidogrel Bisulfate (Plavix) 75 mg PO DAILY [facility] Last Admin: 01/20/17 10:05 Dose: Not Given Furosemide (Lasix) 40 mg IVP DAILY [facility] Last Admin: 01/20/17 10:04 Dose: 40 mg Sodium Chloride (Sodium Chloride 0.45%) 1,000 mls @ 80 mls/hr IV .[id number] [facility] Last Admin: 01/20/17 10:13 Dose: Not Given Insulin Human Lispro (Humalog Med) 0 units SC ACHS [facility] PRN Reason: Protocol Last Admin: 01/20/17 08:06 Dose: Not Given Isosorbide Mononitrate (Imdur) 30 mg PO BID [facility] Last Admin: 01/20/17 10:03 Dose: 30 mg Levalbuterol HCl (Xopenex) 1.25 mg IH [id number] PRN PRN Reason: Shortness of Breath Metoprolol Tartrate (Lopressor) 25 mg PO DAILY [facility] Last Admin: 01/20/17 10:03 Dose: 25 mg Montelukast Sodium (Singulair) 10 mg PO HS [facility] Last Admin: 01/19/17 21:55 Dose: 10 mg Non-Formulary Medication (Ranolazine [Ranexa]) 500 mg PO DAILY [facility] Last Admin: 01/20/17 10:04 Dose: Not Given Ondansetron HCl (Zofran Inj) 4 mg IVP Q6H PRN PRN Reason: Nausea/Vomiting Pantoprazole Sodium (Protonix Inj) 40 mg IVP BID [facility] Last Admin: 01/20/17 10:03 Dose: 40 mg - Labs Labs: 01/20/17 06:35 01/20/17 06:35 PT 10.7 Seconds (9.9-11.8) 01/18/17 17:35 INR 0.99 (0.93-1.08) 01/18/17 17:35 APTT 24.5 Seconds (23.7-30.8) 01/18/17 17:35 - Constitutional Appears: Well, Non-toxic - Eye Exam Eye Exam: PERRL. absent: Scleral icterus - Respiratory Exam Respiratory Exam: Clear to Ausculation Bilateral, NORMAL BREATHING PATTERN - Cardiovascular Exam Cardiovascular Exam: REGULAR RHYTHM, RRR, +S1, +S2. absent: JVD - GI/Abdominal Exam GI & Abdominal Exam: Normal Bowel Sounds. absent: Organomegaly Assessment and Plan - Assessment and Plan (Free Text) Assessment: 66 year old man with acute blood loss, Fe deficiency anemia due to upper GI bleed. high dose PPI, GI work up in progress ASHD with Drug eluting stent for NSTEMI which is less than 12 months ago , continue dual anti platelet therapy; High dose statin DM is chronic and stable on insulin COPD is chronic and currently stable shortness of breath is due to symptomatic anemia. If patient is deemed medically cleared he can be d/c from a cardiac standpoint he is encourage to comply with pill endoscopy or any other GI diagnostic or therapeutic maneuvers.
[2017-01-20 15:06] VITALS: PULSE 74
--- NOTE | 2017-01-21 09:59 | DS ---
The patient is a 66-year-old who came in with increasing cough, congestion, shortness of breath. He was found to have hemoglobin of 5.7. He was given 3 blood transfusions. His stool for Hemoccult was positive. He was seen by GI and wildlife removal specialist. The patient had similar episode in October. Had en doscopy and colonoscopy done that showed he had a small bleeding ulcer. He was scheduled to have a ca psule endoscopy on 01/26/2017. He came in because of increasing shortness of breath and ended up hav ing 3 blood transfusions. Doing well. PHYSICAL EXAMINATION: GENERAL: He is awake and alert, communicative. VITAL SIGNS: He is afebrile, pulse 94, respirations 20, blood pressure 134/88. LUNGS: Bilateral fair airflow, no rhonchi or crackle. HEART: S1, S2 audible. No murmur. ABDOMEN: Soft, obese, nontender, no rebound, no guarding. NEUROLOGIC: He is awake and alert, communicative, ambulatory. EXTREMITIES: No leg edema. ASSESSMENT: 1. Probably upper gastrointestinal bleed. 2. Coronary artery disease, status post angioplasty; had drug-eluting stent placed in October. 3. Pulmonary hypertension. 4. Acute on chronic anemia. 5. Hyperlipidemia. 6. [id number] diabetes. PLAN: I discussed with cardiology. I discussed with Dr. Castorena also who evaluated the patient. Ther e is thickening of his stomach wall. Recommendation is to have his stomach biopsy done, but that prashant l be held off until he comes off of Plavix and aspirin. I spoke to the physical therapy instructor. They are okay to start him back on aspirin and Plavix. Will restart that and follow up his H and H as outpat ient. Arlette Drake MD cc: [phone] TT: 01/21/2017 09:58:58 pa
== END 2017-01-20 15:13 | disposition home or self-care (01) | DRG 812 ==
LOC: ED 15:33 → ERH 22:01 → 2RNO 23:24 → OBSVTOIN 01-19 16:40
PROVIDERS: ADMIT Internal Medicine; ATTEND Internal Medicine
PROC: 30233N1 Transfusion of Nonautologous Red Blood Cells into Peripheral Vein, Percutaneous Approach (ICD-10-PCS; principal; 2017-01-18)
DX: D62 Acute posthemorrhagic anemia (principal); D50.9 Iron deficiency anemia, unspecified; K92.2 Gastrointestinal hemorrhage, unspecified; I27.2 Other secondary pulmonary hypertension; J44.9 Chronic obstructive pulmonary disease, unspecified; I10 Essential (primary) hypertension; E78.5 Hyperlipidemia, unspecified; E11.9 Type 2 diabetes mellitus without complications; I25.10 Atherosclerotic heart disease of native coronary artery without angina pectoris; M06.9 Rheumatoid arthritis, unspecified; M81.0 Age-related osteoporosis without current pathological fracture; J45.909 Unspecified asthma, uncomplicated; K27.9 Peptic ulcer, site unspecified, unspecified as acute or chronic, without hemorrhage or perforation; K20.9 Esophagitis, unspecified; Z79.899 Other long term (current) drug therapy; I25.2 Old myocardial infarction; Z95.5 Presence of coronary angioplasty implant and graft; Z87.891 Personal history of nicotine dependence; Z82.49 Family history of ischemic heart disease and other diseases of the circulatory system

== ENCOUNTER 2017-02-15 07:18 | Day surgery (SDC) | payer MEDICARE, OTHER ==
[2017-01-27 16:28] VITALS: BMI 28.6
[2017-02-15 08:13] LABS: ADD MANUAL DIFF? NO; BASO # 0.07 K/mm3 (0.0-2.0); BASO % 0.9 % (0.0-3.0); EOS # 0.5 (0.0-0.7); EOS % 6.6 % (1.5-5.0); GRAN % 66.4 % (50.0-68.0); HEMATOCRIT 25.3 % (42.0-52.0); LYMPH # 1.3 (1.2-3.4); LYMPH % 15.7 % (22.0-35.0); MEAN CELL VOLUME 70.1 fL (80.0-105.0); MEAN CORPUSCULAR HEMOGLOBIN 21.6 pg (25.0-35.0); MEAN CORPUSCULAR HGB CONC 30.8 g/dl (31.0-37.0); MEAN PLATELET VOLUME 8.4 fl (7.0-11.0); MONO # 0.9 (0.1-0.6); MONO % 10.4 % (1.0-6.0); PLATELET COUNT 335 10^3/uL (120.0-450.0); RED CELL DISTRIBUTION WIDTH 22.5 % (11.5-14.5); WHITE BLOOD COUNT 8.1 10^3/ul (4.5-11.0)
[2017-02-15] MEDS ORDERED: Albuterol HFA 90 mcg/actuation (8 g) ONE (09:56)
[2017-02-15] MEDS ORDERED: Propofol 10 mg/ml Inj (20 ML) ONE (10:01)
[2017-02-15] MEDS ORDERED: Phenylephrine 10 mg/ml Inj ONE (10:40)
--- NOTE | 2017-02-15 10:42 | CP.PCM.CON ---
<Linda Tang - Last Filed: 02/15/17 10:35> History of Present Illness - History of Present Illness History of Present Illness: Gastroenterology Fellow/PGY4 Consult Note 66 year old male with history of CAD s/p RCA drug eluting stent on Aspirin/ Plavix, Hypertension, Diabetes, COPD, Hyperlipidemia, PUD, and pulmonary hypertensionpresenting for elective EGD. 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 Capsule endoscopy 01/26 showing bleeding duodenal AVM. Admits to melena over the weekend. Noted drop in hemoglobin 9.2 (02/02/17) to 7.8 (02/15/17). Held Plavix for five days prior to EGD today. Denies hematochezia, hematemesis, hematuria, abdominal pain, nausea, vomiting, bloating, or diarrhea. EGD 10/2016 showed LA Grade B esophagitis, PUD (gastric ulcer). EGD 01/28/17 LA Grade A esophagitis and non-bleeding duodenal AVM. Colonoscopy 10/2015 showed transverse tubular adenomas. Family: mother- Hypertension Social: quit tobacco use, denies alcohol or illicit drug use Surgery: RCA drug eluting stent Review of Systems - Review of Systems Review of Systems: A 12-point review of systems negative except for as above Past Patient History - Infectious Disease Hx of Infectious Diseases: None - Past Medical History & Family History Past Medical History?: Yes - Past Social History Smoking Status: Former Smoker - CARDIAC Hx Pacemaker: No - PULMONARY Hx Asthma: Yes Hx Chronic Obstructive Pulmonary Disease (COPD): Yes - NEUROLOGICAL Hx Paralysis: No - HEENT Hx HEENT Problems: No (wears glasses) - RENAL Hx Chronic Kidney Disease: No - ENDOCRINE/METABOLIC Hx Endocrine Disorders: Yes Hx Diabetes Mellitus Type 2: Yes - HEMATOLOGICAL/ONCOLOGICAL Hx Blood Transfusions: Yes Hx Blood Transfusion Reaction: No - INTEGUMENTARY Hx Dermatological Problems: No - MUSCULOSKELETAL/RHEUMATOLOGICAL Hx Musculoskeletal Disorders: Yes - GENITOURINARY/GYNECOLOGICAL Hx Genitourinary Disorders: No - PSYCHIATRIC Hx Emotional Abuse: No Hx Physical Abuse: No Hx Substance Use: No - SURGICAL HISTORY Hx Surgeries: Yes - ANESTHESIA Hx Anesthesia Reactions: No Hx Malignant Hyperthermia: No Meds Allergies/Adverse Reactions: Allergies Allergy/AdvReac Type Severity Reaction Status Date / Time No Known Allergies Allergy Verified 01/27/17 16:46 Physical Exam - Constitutional Appears: Non-toxic, No Acute Distress - Head Exam Head Exam: ATRAUMATIC, NORMOCEPHALIC - Eye Exam Eye Exam: EOMI, PERRL Pupil Exam: PERRL. absent: Miosis, Mydriatic - ENT Exam ENT Exam: Mucous Membranes Moist, Normal Oropharynx - Neck Exam Neck exam: Positive for: Full Rom, Normal Inspection - Respiratory Exam Respiratory Exam: Clear to Auscultation Bilateral. absent: Rales, Rhonchi, Wheezes - Cardiovascular Exam Cardiovascular Exam: RRR, +S1, +S2. absent: Gallop, Rubs - GI/Abdominal Exam GI & Abdominal Exam: Normal Bowel Sounds, Soft. absent: Distended, Firm, Guarding, Organomegaly, Rebound, Rigid, Tenderness - Extremities Exam Extremities exam: Positive for: full ROM. Negative for: pedal edema - Neurological Exam Neurological exam: Alert - Psychiatric Exam Psychiatric exam: Normal Affect, Normal Mood - Skin Skin Exam: Dry, Intact, Normal Color, Warm Results - Vital Signs Recent Vital Signs: Last Vital Signs Temp 97.5 F L 02/15/17 07:54 Pulse 80 02/15/17 07:54 Resp 19 02/15/17 07:54 BP 141/81 02/15/17 07:54 Pulse Ox 99 02/15/17 10:00 - Labs Result Diagrams: 02/15/17 08:06 Labs: Laboratory Results - last 24 hr 02/15/17 08:06 WBC 8.1 RBC 3.61 Hgb 7.8 L Hct 25.3 L MCV 70.1 L MCH 21.6 L MCHC 30.8 L RDW 22.5 H Plt Count 335 MPV 8.4 Gran % 66.4 Lymph % (Auto) 15.7 L [place] % (Auto) 10.4 H Eos % (Auto) 6.6 H Baso % (Auto) 0.9 Gran # 5.40 Lymph # 1.3 [place] # 0.9 H Eos # 0.5 Baso # 0.07 Assessment & Plan - Assessment and Plan (Free Text) Assessment: 66 year old male with history of CAD s/p RCA drug eluting stent on Aspirin/ Plavix, Hypertension, Diabetes, COPD, Hyperlipidemia, PUD, and pulmonary hypertension presenting for elective EGD. 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 Capsule endoscopy 01/26 showing bleeding duodenal AVM. EGD 10/2016 showed LA Grade B esophagitis, PUD (gastric ulcer). EGD 01/28/17 LA Grade A esophagitis and non- bleeding duodenal AVM. Colonoscopy 10/2015 showed transverse tubular adenomas. Plan: >POD 0 (02/15/17) EGD with active bleeding duodenal AVM s/p APC, BiPolar cautery , and 2cc 1:[id number] epinephrine injection >admit for observation >monitor H/H >Type and Screen >PPI BID >Type and screen >hold 2 Units pRBCs >supportive care: IVFs >clear liquid diet only next 24 hours >continue Aspirin >further recommendations based on clinical course <Kendrick Terrazas - Last Filed: 02/15/17 12:01> Meds - Medications Medications: Current Medications Sodium Chloride (Sodium Chloride 0.9%) 1,000 mls @ 75 mls/hr IV .[id number] DONNY Stop: 02/15/17 13:01 Pantoprazole Sodium (Protonix Inj) 40 mg IVP Q12 DONNY Last Admin: 02/15/17 11:28 Dose: 40 mg Results - Vital Signs Recent Vital Signs: Last Vital Signs Temp 98 F 02/15/17 11:33 Pulse 79 02/15/17 11:33 Resp 14 02/15/17 11:33 BP 133/77 02/15/17 11:33 Pulse Ox 99 02/15/17 11:33 - Labs Result Diagrams: 02/15/17 08:06 Labs: Laboratory Results - last 24 hr 02/15/17 02/15/17 08:06 11:05 WBC 8.1 RBC 3.61 Hgb 7.8 L Hct 25.3 L MCV 70.1 L MCH 21.6 L MCHC 30.8 L RDW 22.5 H Plt Count 335 MPV 8.4 Gran % 66.4 Lymph % (Auto) 15.7 L [place] % (Auto) 10.4 H Eos % (Auto) 6.6 H Baso % (Auto) 0.9 Gran # 5.40 Lymph # 1.3 [place] # 0.9 H Eos # 0.5 Baso # 0.07 Blood Type O POSITIVE Antibody Screen Negative Crossmatch See Detail BBK History Checked Patient has bt Attending/Attestation - Attestation I have personally seen and examined this patient.: Yes I have fully participated in the care of the patient.: Yes I have reviewed all pertinent clinical information: Yes Notes (Text): 02/15/17 11:57 66 year old male with history of CAD s/p MICHOACANO on Aspirin/Plavix, HTN, DM, COPD, HLD with chronic GI bleeding from a duodenal avm now s/p EGD with hemostasis, admitted for transfusion and post op monitoring for recurrent bleeding. 1. Upper GI bleeding 2. Duodenal AVM 3. Acute blood loss anemia Plan: -patient has been having melena over the weekend and dropping hemoglobin since his last admission -in addition, he had a blood clot in the duodenum noted on endoscopy suggesting recent active bleeding -now s/p EGD with hemostasis including epi injection and bipolar cautery with successful hemostasis -recommend admission to med/surg -transfuse 2 units of blood -clear liquid diet -monitor for recurrent bleeding -CBC daily -PPI BID -hold plavix -ok to give aspirin -will follow
[2017-02-15] MEDS ORDERED: Sodium Chloride 0.9% 1,000 ML IV SCH (11:00)
[2017-02-15] MEDS ORDERED: Acetaminophen 650mg/20.3ml solution UD PO PRN (12:39)
[2017-02-15] MEDS ORDERED: Albuterol-Ipratrop 3 mg / 0.5 (3 ml) UD IH PRN (12:41)
--- NOTE | 2017-02-15 12:55 | CP.PCM.HP ---
<Merlene Frank - Last Filed: 02/15/17 12:49> History of Present Illness - History of Present Illness History of Present Illness: 66 year old male with history of CAD s/p RCA drug eluting stent on Aspirin/ Plavix, Hypertension, Diabetes, COPD, Hyperlipidemia, PUD, and pulmonary hypertensionpresenting for elective EGD. 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 Capsule endoscopy 01/26 showing bleeding duodenal AVM. Admits to melena over the weekend. Noted drop in hemoglobin 9.2 (02/02/17) to 7.8 (02/15/17). Held Plavix for five days prior to EGD today. Denies hematochezia, hematemesis, hematuria, abdominal pain, nausea, vomiting, bloating, or diarrhea. EGD 10/2016 showed LA Grade B esophagitis, PUD (gastric ulcer). EGD 01/28/17 LA Grade A esophagitis and non-bleeding duodenal AVM. Colonoscopy 10/2015 showed transverse tubular adenomas. PMH: CAD s/p RCA drug eluting stent on Aspirin/Plavix, Hypertension, Diabetes, COPD, Hyperlipidemia, PUD, and pulmonary hypertension Family: mother- Hypertension Social: quit tobacco use 2004, denies alcohol or illicit drug use. Lives at home w family. Retired Surgery: RCA drug eluting stent PMD: Dr. Rowe Present on Admission - Present on Admission Any Indicators Present on Admission: No Review of Systems - Review of Systems Review of Systems: See HPI Past Patient History - Infectious Disease Hx of Infectious Diseases: None - Past Medical History & Family History Past Medical History?: Yes - Past Social History Smoking Status: Former Smoker - CARDIAC Hx Pacemaker: No - PULMONARY Hx Asthma: Yes Hx Chronic Obstructive Pulmonary Disease (COPD): Yes - NEUROLOGICAL Hx Paralysis: No - HEENT Hx HEENT Problems: No (wears glasses) - RENAL Hx Chronic Kidney Disease: No - ENDOCRINE/METABOLIC Hx Endocrine Disorders: Yes Hx Diabetes Mellitus Type 2: Yes - HEMATOLOGICAL/ONCOLOGICAL Hx Blood Transfusions: Yes Hx Blood Transfusion Reaction: No - INTEGUMENTARY Hx Dermatological Problems: No - MUSCULOSKELETAL/RHEUMATOLOGICAL Hx Musculoskeletal Disorders: Yes - GENITOURINARY/GYNECOLOGICAL Hx Genitourinary Disorders: No - PSYCHIATRIC Hx Emotional Abuse: No Hx Physical Abuse: No Hx Substance Use: No - SURGICAL HISTORY Hx Surgeries: Yes - ANESTHESIA Hx Anesthesia Reactions: No Hx Malignant Hyperthermia: No Meds Allergies/Adverse Reactions: Allergies Allergy/AdvReac Type Severity Reaction Status Date / Time No Known Allergies Allergy Verified 02/15/17 12:32 Physical Exam - Constitutional Appears: No Acute Distress - Head Exam Head Exam: ATRAUMATIC, NORMAL INSPECTION, NORMOCEPHALIC - Eye Exam Eye Exam: EOMI, PERRL. absent: Conjunctival injection, Scleral icterus Pupil Exam: NORMAL ACCOMODATION, PERRL Additional comments: Conjunctival pallor - ENT Exam ENT Exam: Mucous Membranes Moist, Normal Exam - Neck Exam Neck exam: Positive for: Normal Inspection - Respiratory Exam Respiratory Exam: Clear to Auscultation Bilateral, NORMAL BREATHING PATTERN - Cardiovascular Exam Cardiovascular Exam: REGULAR RHYTHM, +S1, +S2 - GI/Abdominal Exam GI & Abdominal Exam: Normal Bowel Sounds, Soft. absent: Tenderness - Extremities Exam Extremities exam: Positive for: normal inspection - Back Exam Back exam: NORMAL INSPECTION - Neurological Exam Neurological exam: Alert, CN II-XII Intact, Normal Gait, Oriented x3, Reflexes Normal - Psychiatric Exam Psychiatric exam: Normal Affect, Normal Mood - Skin Skin Exam: Dry, Intact, Pallor, Warm Results - Vital Signs Recent Vital Signs: Last Vital Signs Temp 98 F 02/15/17 11:33 Pulse 79 02/15/17 11:33 Resp 14 02/15/17 11:33 BP 133/77 02/15/17 11:33 Pulse Ox 99 02/15/17 11:33 - Labs Result Diagrams: 02/15/17 08:06 Labs: Laboratory Results - last 24 hr 02/15/17 02/15/17 08:06 11:05 WBC 8.1 RBC 3.61 Hgb 7.8 L Hct 25.3 L MCV 70.1 L MCH 21.6 L MCHC 30.8 L RDW 22.5 H Plt Count 335 MPV 8.4 Gran % 66.4 Lymph % (Auto) 15.7 L [place] % (Auto) 10.4 H Eos % (Auto) 6.6 H Baso % (Auto) 0.9 Gran # 5.40 Lymph # 1.3 [place] # 0.9 H Eos # 0.5 Baso # 0.07 Blood Type O POSITIVE Antibody Screen Negative Crossmatch See Detail BBK History Checked Patient has bt Assessment & Plan - Assessment and Plan (Free Text) Assessment: Anemia 2/2 duodenal AVM -Protonix IV BID -CLD -Hold PLV -Transfuse 2 PRBC -CBC CAD s/p stent -ASA -Hold PLV COPD -Duoneb PRN -Singulair HTN -Lopressor -Losartan -Amlodipine BPH -Flomax DM -Linagliptin DW attending. <Citlalli Lou Lorie - Last Filed: 02/15/17 13:44> Results - Vital Signs Recent Vital Signs: Last Vital Signs Temp 97.7 F 02/15/17 12:30 Pulse 87 02/15/17 12:30 Resp 20 02/15/17 12:30 BP 129/85 02/15/17 12:30 Pulse Ox 97 02/15/17 12:30 - Labs Result Diagrams: 02/15/17 08:06 Labs: Laboratory Results - last 24 hr 02/15/17 02/15/17 08:06 11:05 WBC 8.1 RBC 3.61 Hgb 7.8 L Hct 25.3 L MCV 70.1 L MCH 21.6 L MCHC 30.8 L RDW 22.5 H Plt Count 335 MPV 8.4 Gran % 66.4 Lymph % (Auto) 15.7 L [place] % (Auto) 10.4 H Eos % (Auto) 6.6 H Baso % (Auto) 0.9 Gran # 5.40 Lymph # 1.3 [place] # 0.9 H Eos # 0.5 Baso # 0.07 Blood Type O POSITIVE Antibody Screen Negative Crossmatch See Detail BBK History Checked Patient has bt Attending/Attestation - Attestation I have personally seen and examined this patient.: Yes I have fully participated in the care of the patient.: Yes I have reviewed all pertinent clinical information: Yes Notes (Text): I have seen and examined patient at bedside. This is 66 year old male with history of CAD s/p MICHOACANO. HTN, NIDDM, COPD, dyslipidemia, PUD, pulmonary hypertension, former tobacco user, esophagitis, gastric ulcer, duodenal AVM, Anemia, tubular adenomas who got admitted for observation s/p Ercp. He was treated with argon plasma anticoagulation and hemostasis was achieved with epinephrine injection and bipolar cautery. Patient's mouth is very dry. States that he is very thirsty and wants to eat. Has slight abdominal discomfort but no pain or tenderness. He will be given clear liquid diet. He was found to have anemia. Hb is 7.8 and will be given 2 units prbc. Patient will be observed overnight for monitoring of anemia. Continue protonix bid. Will repeat cbc in am. Continue aspirin and hold plavix atleast for now. Continue antihypertensive and hypoglycemic meds. Upon discharge patient will be followed up by Dr Rowe. Dr Citlalli Lou
[2017-02-15 16:13] VITALS: O2SAT 98
[2017-02-15] MEDS: Petrolatum Oint Foilpak (5 gm) TOP SCH (16:24)
[2017-02-15 20:42] LABS: URINE APPEARANCE CLEAR (CLEAR); URINE BILIRUBIN NEGATIVE (NEGATIVE); URINE BLOOD NEGATIVE (NEGATIVE); URINE COLOR YELLOW (YELLOW); URINE GLUCOSE (UA) NEGATIVE (NEGATIVE); URINE KETONE NEGATIVE (NEGATIVE); URINE LEUKOCYTE ESTERASE NEGATIVE Leu/uL (NEGATIVE); URINE PROTEIN NEGATIVE mg/dL (<30 mg/dL); URINE UROBILINOGEN 0.2 E.U./dL (<1 E.U./dL)
[2017-02-15] MEDS: Sodium Chloride 0.9% 1,000 ML IV SCH (22:30)
[2017-02-16 01:56] LABS: HEMATOCRIT 30.2 % (42.0-52.0); MEAN CELL VOLUME 72.9 fL (80.0-105.0); MEAN CORPUSCULAR HEMOGLOBIN 23.4 pg (25.0-35.0); MEAN CORPUSCULAR HGB CONC 32.1 g/dl (31.0-37.0); MEAN PLATELET VOLUME 8.2 fl (7.0-11.0); RED CELL DISTRIBUTION WIDTH 22.1 % (11.5-14.5); WHITE BLOOD COUNT 10.4 10^3/ul (4.5-11.0)
[2017-02-16 07:02] LABS: ADD MANUAL DIFF? NO
[2017-02-16 07:15] LABS: BASO # 0.08 K/mm3 (0.0-2.0); BASO % 0.9 % (0.0-3.0); EOS # 0.7 (0.0-0.7); EOS % 7.4 % (1.5-5.0); GRAN # 6.38 (1.4-6.5); GRAN % 67.9 % (50.0-68.0); HEMATOCRIT 30.9 % (42.0-52.0); LYMPH # 1.3 (1.2-3.4); LYMPH % 14.1 % (22.0-35.0); MEAN CELL VOLUME 73.2 fL (80.0-105.0); MEAN CORPUSCULAR HGB CONC 31.4 g/dl (31.0-37.0); MEAN PLATELET VOLUME 8.5 fl (7.0-11.0); MONO # 0.9 (0.1-0.6); MONO % 9.7 % (1.0-6.0); PLATELET COUNT 328 10^3/uL (120.0-450.0); RED CELL DISTRIBUTION WIDTH 22.1 % (11.5-14.5); WHITE BLOOD COUNT 9.4 10^3/ul (4.5-11.0)
[2017-02-16 07:37] LABS: ALB/GLOB RATIO 1.2 (1.1-1.8); ALKALINE PHOSPHATASE 89 U/L (38-133); ALT/SGPT 29 U/L (7-56); AST/SGOT 33 U/L (15-59); BILIRUBIN,TOTAL 0.8 mg/dL (0.2-1.3); BLOOD UREA NITROGEN 12 mg/dL (7-21); CALCIUM 8.7 mg/dL (8.4-10.5); CARBON DIOXIDE 30 mmol/L (21-33); CHLORIDE 104 mmol/L (98-107); GFR AFRICAN-AMERICAN > 60; GLUCOSE,RANDOM 103 mg/dL (70-110); POTASSIUM 3.6 mmol/L (3.6-5.0); SODIUM 141 mmol/L (132-148); TOTAL PROTEIN 6.6 g/dL (5.8-8.3)
--- NOTE | 2017-02-16 07:41 | CP.PCM.PN ---
<Linda Tang - Last Filed: 02/16/17 08:54> Subjective - Date & Time of Evaluation Date of Evaluation: 02/16/17 Time of Evaluation: 07:34 - Subjective Subjective: Gastroenterology Fellow/PGY4 Progress Note Patient feels well this morning. Denies abdominal pain with note of being bloated and having flatulence. No bowel movement but does have the urge. Tolerating clear liquids. States he is hungry. A 12-point review of systems negative except for a above. Objective - Vital Signs/Intake and Output Vital Signs (last 24 hours): Temp Pulse Resp BP Pulse Ox 98.2 F 69 19 139/86 98 02/15/17 21:22 02/15/17 21:22 02/15/17 21:22 02/15/17 21:22 02/15/17 16:12 Intake and Output: 02/16/17 02/16/17 06:59 18:59 Intake Total 1160 Output Total 1500 Balance -340 - Medications Medications: Current Medications Acetaminophen (Tylenol 650mg/20.3ml Solution Ud) 650 mg PO Q6H PRN PRN Reason: Pain, Mild (1-3) Albuterol/Ipratropium (Duoneb 3 Mg/0.5 Mg (3 Ml) Ud) 3 ml IH [id number] PRN PRN Reason: Shortness of Breath Amlodipine Besylate (Norvasc) 5 mg PO DAILY [facility] Aspirin (Aspirin Chewable) 81 mg PO DAILY [facility] Atorvastatin Calcium (Lipitor) 80 mg PO DIN [facility] Last Admin: 02/15/17 18:25 Dose: 80 mg Emollient Ointment (Vaseline Oint) 5 gm TOP DAILY [facility] Last Admin: 02/15/17 16:24 Dose: 5 gm Sodium Chloride (Sodium Chloride 0.9%) 1,000 mls @ 100 mls/hr IV .Q10H [facility] Last Admin: 02/15/17 22:30 Dose: 100 mls/hr Metoprolol Tartrate (Lopressor) 25 mg PO BID [facility] Last Admin: 02/15/17 18:25 Dose: 25 mg Montelukast Sodium (Singulair) 10 mg PO HS [facility] Last Admin: 02/15/17 22:33 Dose: 10 mg Pantoprazole Sodium (Protonix Inj) 40 mg IVP Q12 [facility] Last Admin: 02/15/17 22:33 Dose: 40 mg Sitagliptin Phosphate (Januvia) 100 mg PO DAILY [facility] Tamsulosin HCl (Flomax) 0.4 mg PO DAILY [facility] Valsartan (Diovan) 320 mg PO DAILY [facility] - Labs Labs: 02/16/17 06:30 - Constitutional Appears: Non-toxic, No Acute Distress - Head Exam Head Exam: ATRAUMATIC, NORMOCEPHALIC - Eye Exam Eye Exam: EOMI, PERRL Pupil Exam: PERRL. absent: Miosis, Mydriatic - ENT Exam ENT Exam: Mucous Membranes Moist, Normal Oropharynx - Neck Exam Neck Exam: Full ROM, Normal Inspection - Respiratory Exam Respiratory Exam: Clear to Ausculation Bilateral. absent: Rales, Rhonchi, Wheezes - Cardiovascular Exam Cardiovascular Exam: RRR, +S1, +S2. absent: Gallop, Rubs - GI/Abdominal Exam GI & Abdominal Exam: Soft, Normal Bowel Sounds. absent: Distended, Firm, Guarding, Rigid, Tenderness, Organomegaly, Rebound - Extremities Exam Extremities Exam: Full ROM. absent: Pedal Edema - Neurological Exam Neurological Exam: Alert, Awake - Psychiatric Exam Psychiatric exam: Normal Affect, Normal Mood - Skin Skin Exam: Dry, Intact, Normal Color, Warm Assessment and Plan - Assessment and Plan (Free Text) Assessment: 66 year old male with history of CAD s/p RCA drug eluting stent on Aspirin/ Plavix, Hypertension, Diabetes, COPD, Hyperlipidemia, PUD, and pulmonary hypertension presenting for elective EGD. History of recurrent symptomatic iron deficiency anemia due to chronic GI bleed requiring transfusions secondary to duodenal AVM. Capsule endoscopy 01/26 showing bleeding duodenal AVM. EGD 10/2016 showed LA Grade B esophagitis, PUD (gastric ulcer). EGD 01/28/17 LA Grade A esophagitis and non-bleeding duodenal AVM. Colonoscopy 10/2015 showed transverse tubular adenomas. Plan: >POD 1 (02/15/17) EGD with active bleeding duodenal AVM with successful hemostasis s/p APC, BiPolar cautery, and 2cc 1:[id number] epinephrine injection >s/p 2 U pRBCs, appropriate response to transfusion >continue PPI BID >tolerating clear liquids, advance to full liquids >continue Aspirin >hold Plavix today >Dr. Terrazas will assess today for potential discharge and provide recommendation on timing to restart Plavix <Kendrick Terrazas - Last Filed: 02/16/17 12:59> Objective - Vital Signs/Intake and Output Vital Signs (last 24 hours): Temp Pulse Resp BP Pulse Ox 98.0 F 66 20 134/95 H 98 02/16/17 07:48 02/16/17 10:27 02/16/17 07:48 02/16/17 10:27 02/16/17 07:48 Intake and Output: 02/16/17 02/16/17 06:59 18:59 Intake Total 1160 Output Total 1500 Balance -340 - Medications Medications: Current Medications Acetaminophen (Tylenol 650mg/20.3ml Solution Ud) 650 mg PO Q6H PRN PRN Reason: Pain, Mild (1-3) Albuterol/Ipratropium (Duoneb 3 Mg/0.5 Mg (3 Ml) Ud) 3 ml IH [id number] PRN PRN Reason: Shortness of Breath Amlodipine Besylate (Norvasc) 5 mg PO DAILY [facility] Last Admin: 02/16/17 10:26 Dose: 5 mg Aspirin (Aspirin Chewable) 81 mg PO DAILY [facility] Last Admin: 02/16/17 10:28 Dose: 81 mg Atorvastatin Calcium (Lipitor) 80 mg PO DIN [facility] Last Admin: 02/15/17 18:25 Dose: 80 mg Emollient Ointment (Vaseline Oint) 5 gm TOP DAILY [facility] Last Admin: 02/16/17 10:30 Dose: Not Given Sodium Chloride (Sodium Chloride 0.9%) 1,000 mls @ 100 mls/hr IV .Q10H [facility] Last Admin: 02/16/17 10:15 Dose: 100 mls/hr Metoprolol Tartrate (Lopressor) 25 mg PO BID [facility] Last Admin: 02/16/17 10:27 Dose: 25 mg Montelukast Sodium (Singulair) 10 mg PO HS [facility] Last Admin: 02/15/17 22:33 Dose: 10 mg Pantoprazole Sodium (Protonix Inj) 40 mg IVP Q12 [facility] Last Admin: 02/16/17 10:28 Dose: 40 mg Sitagliptin Phosphate (Januvia) 100 mg PO DAILY [facility] Last Admin: 02/16/17 10:28 Dose: 100 mg Tamsulosin HCl (Flomax) 0.4 mg PO DAILY [facility] Last Admin: 02/16/17 10:26 Dose: 0.4 mg Valsartan (Diovan) 320 mg PO DAILY [facility] Last Admin: 02/16/17 10:30 Dose: 320 mg - Labs Labs: 02/16/17 06:30 02/16/17 06:30 Attending/Attestation - Attestation I have personally seen and examined this patient.: Yes I have fully participated in the care of the patient.: Yes I have reviewed all pertinent clinical information, including history, physical exam and plan: Yes Notes (Text): 02/16/17 12:57 66 year old male with history of CAD s/p MICHOACANO on Aspirin/Plavix, HTN, DM, COPD, HLD with chronic GI bleeding from a duodenal avm now s/p EGD with hemostasis, admitted for transfusion and post op monitoring for recurrent bleeding. 1. Upper GI bleeding 2. Duodenal AVM 3. Acute blood loss anemia Plan: -now s/p EGD with hemostasis including epi injection and bipolar cautery with successful hemostasis -no signs of bleeding post op -transfused 2 units of blood with appropriate response and stability of serial hgb -diet as tolerated -continue daily PPI -resume plavix tomorrow -continue aspirin -ok to discharge -follow up with Dr. Haley in 1 week with CBC -follow up with cardiology re: plavix
[2017-02-16 07:48] VITALS: RESP 20; TEMP 98
[2017-02-16] MEDS: Sodium Chloride 0.9% 1,000 ML IV SCH (10:15)
[2017-02-16] MEDS: Petrolatum Oint Foilpak (5 gm) TOP SCH (10:30)
[2017-02-16 10:31] VITALS: BP 134/95; PULSE 66
--- NOTE | 2017-02-16 13:03 | CP.PCM.DIS ---
<Merlene Frank - Last Filed: 02/16/17 13:08> Provider - Provider Date of Admission: 02/15/17 10:54 Attending physician: Citlalli Lou MD Primary care physician: Ulises Bailey MD Consults: GI: Dr. Terrazas Time Spent in preparation of Discharge (in minutes): 45 Hospital Course - Lab Results Lab Results: Most Recent Lab Values WBC 9.4 10^3/ul (4.5-11.0) 02/16/17 06:30 RBC 4.22 10^6/uL (3.5-6.1) 02/16/17 06:30 Hgb 9.7 gm/dL (14.0-18.0) L 02/16/17 06:30 Hct 30.9 % (42.0-52.0) L 02/16/17 06:30 MCV 73.2 fL (80.0-105.0) L 02/16/17 06:30 MCH 23.0 pg (25.0-35.0) L 02/16/17 06:30 MCHC 31.4 g/dl (31.0-37.0) 02/16/17 06:30 RDW 22.1 % (11.5-14.5) H 02/16/17 06:30 Plt Count 328 10^3/uL (120.0-450.0) 02/16/17 06:30 MPV 8.5 fl (7.0-11.0) 02/16/17 06:30 Gran % 67.9 % (50.0-68.0) 02/16/17 06:30 Lymph % (Auto) 14.1 % (22.0-35.0) L 02/16/17 06:30 [place] % (Auto) 9.7 % (1.0-6.0) H 02/16/17 06:30 Eos % (Auto) 7.4 % (1.5-5.0) H 02/16/17 06:30 Baso % (Auto) 0.9 % (0.0-3.0) 02/16/17 06:30 Gran # 6.38 (1.4-6.5) 02/16/17 06:30 Lymph # 1.3 (1.2-3.4) 02/16/17 06:30 [place] # 0.9 (0.1-0.6) H 02/16/17 06:30 Eos # 0.7 (0.0-0.7) 02/16/17 06:30 Baso # 0.08 K/mm3 (0.0-2.0) 02/16/17 06:30 Sodium 141 mmol/L (132-148) 02/16/17 06:30 Potassium 3.6 mmol/L (3.6-5.0) 02/16/17 06:30 Chloride 104 mmol/L (98-107) 02/16/17 06:30 Carbon Dioxide 30 mmol/L (21-33) 02/16/17 06:30 Anion Gap 11 (10-20) 02/16/17 06:30 BUN 12 mg/dL (7-21) 02/16/17 06:30 Creatinine 1.1 mg/dL (0.5-1.4) 02/16/17 06:30 Est GFR ( Amer) > 60 02/16/17 06:30 Est GFR (Non-Af Amer) > 60 02/16/17 06:30 POC Glucose (mg/dL) 157 mg/dL (65-110) H 02/16/17 10:19 Random Glucose 103 mg/dL (70-110) 02/16/17 06:30 Calcium 8.7 mg/dL (8.4-10.5) 02/16/17 06:30 Total Bilirubin 0.8 mg/dL (0.2-1.3) 02/16/17 06:30 AST 33 U/L (15-59) 02/16/17 06:30 ALT 29 U/L (7-56) 02/16/17 06:30 Alkaline Phosphatase 89 U/L (38-133) 02/16/17 06:30 Total Protein 6.6 g/dL (5.8-8.3) 02/16/17 06:30 Albumin 3.6 g/dL (3.0-4.8) 02/16/17 06:30 Globulin 3.0 gm/dL 02/16/17 06:30 Albumin/Globulin Ratio 1.2 (1.1-1.8) 02/16/17 06:30 Urine Color Yellow (YELLOW) 02/15/17 20:25 Urine Appearance Clear (CLEAR) 02/15/17 20:25 Urine pH 6.0 (4.7-8.0) 02/15/17 20:25 Ur Specific [place] 1.010 (1.005-1.035) 02/15/17 20:25 Urine Protein Negative mg/dL (<30 mg/dL) 02/15/17 20:25 Urine Glucose (UA) Negative mg/dL (NEGATIVE) 02/15/17 20:25 Urine Ketones Negative mg/dL (NEGATIVE) 02/15/17 20:25 Urine Blood Negative (NEGATIVE) 02/15/17 20:25 Urine Nitrate Negative (NEGATIVE) 02/15/17 20:25 Urine Bilirubin Negative (NEGATIVE) 02/15/17 20:25 Urine Urobilinogen 0.2 E.U./dL (<1 E.U./dL) 02/15/17 20:25 Ur Leukocyte Esterase Negative Omar/uL (NEGATIVE) 02/15/17 20:25 Blood Type O POSITIVE 02/15/17 11:05 Antibody Screen Negative 02/15/17 11:05 Crossmatch See Detail 02/15/17 11:05 BBK History Checked Patient has bt 02/15/17 11:05 - Hospital Course Hospital Course: 66 year old male with history of CAD s/p RCA drug eluting stent on Aspirin/ Plavix, Hypertension, Diabetes, COPD, Hyperlipidemia, PUD, and pulmonary hypertensionpresenting for elective EGD. 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 Capsule endoscopy 01/26 showing bleeding duodenal AVM. Admits to melena over the weekend. Noted drop in hemoglobin 9.2 (02/02/17) to 7.8 (02/15/17). Held Plavix for five days prior to EGD today. Denies hematochezia, hematemesis, hematuria, abdominal pain, nausea, vomiting, bloating, or diarrhea. EGD 10/2016 showed LA Grade B esophagitis, PUD (gastric ulcer). EGD 01/28/17 LA Grade A esophagitis and non-bleeding duodenal AVM. Colonoscopy 10/2015 showed transverse tubular adenomas. Pt had 2 PRBC. THe following day pt felt well. Denies F/C/N/V/D. His hgb normalized. Tolerated PO. Amb, + void , +flatus. Pt was instructed to Take protionix daily, can resume Plavix tomorrow and follow up with Dr. Terrazas in 2 weeks. Discharge Exam - Head Exam Head Exam: ATRAUMATIC, NORMOCEPHALIC - Eye Exam Eye Exam: EOMI, Normal appearance, PERRL Pupil Exam: NORMAL ACCOMODATION, PERRL - ENT Exam ENT Exam: Mucous Membranes Moist - Neck Exam Neck exam: Full Rom - Respiratory Exam Respiratory Exam: NORMAL BREATHING PATTERN, UNREMARKABLE - Cardiovascular Exam Cardiovascular Exam: REGULAR RHYTHM, +S1, +S2 - GI/Abdominal Exam GI & Abdominal Exam: Soft, Unremarkable. absent: Distended, Firm, Guarding, Hernia, Tenderness - Extremities Exam Extremities exam: full ROM - Neurological Exam Neurological exam: Alert, CN II-XII Intact, Normal Gait, Oriented x3, Reflexes Normal - Psychiatric Exam Psychiatric exam: Normal Affect, Normal Mood - Skin Skin Exam: Dry, Intact, Normal Color, Warm Discharge Plan - Discharge Medications Prescriptions: Pantoprazole Sodium [Protonix] 40 mg PO BID #30 ect - Follow Up Plan Condition: GOOD Disposition: HOME/ ROUTINE Patient education suggested?: Yes Instructions: Pneumococcal Vaccine for Adults (GEN), Iron Rich Diet (GEN), Heart Healthy Diet (GEN), Blood Transfusion (GEN), Upper Endoscopy (GEN), Anemia (GEN) Additional Instructions: Take protionix daily , can resume Plavix tomorrow and follow up with Dr. Terrazas in 2 weeks. Return to ER if symptoms worsen. Referrals: Ulises Bailey MD [Primary Care Provider] - Kendrick Terrazas MD [Staff Provider] - <Citlalli Lou - Last Filed: 02/16/17 16:38> Provider - Provider Date of Admission: 02/15/17 10:54 Attending physician: Citlalli Lou MD Primary care physician: Ulises Bailey MD Hospital Course - Lab Results Lab Results: Most Recent Lab Values WBC 9.4 10^3/ul (4.5-11.0) 02/16/17 06:30 RBC 4.22 10^6/uL (3.5-6.1) 02/16/17 06:30 Hgb 9.7 gm/dL (14.0-18.0) L 02/16/17 06:30 Hct 30.9 % (42.0-52.0) L 02/16/17 06:30 MCV 73.2 fL (80.0-105.0) L 02/16/17 06:30 MCH 23.0 pg (25.0-35.0) L 02/16/17 06:30 MCHC 31.4 g/dl (31.0-37.0) 02/16/17 06:30 RDW 22.1 % (11.5-14.5) H 02/16/17 06:30 Plt Count 328 10^3/uL (120.0-450.0) 02/16/17 06:30 MPV 8.5 fl (7.0-11.0) 02/16/17 06:30 Gran % 67.9 % (50.0-68.0) 02/16/17 06:30 Lymph % (Auto) 14.1 % (22.0-35.0) L 02/16/17 06:30 [place] % (Auto) 9.7 % (1.0-6.0) H 02/16/17 06:30 Eos % (Auto) 7.4 % (1.5-5.0) H 02/16/17 06:30 Baso % (Auto) 0.9 % (0.0-3.0) 02/16/17 06:30 Gran # 6.38 (1.4-6.5) 02/16/17 06:30 Lymph # 1.3 (1.2-3.4) 02/16/17 06:30 [place] # 0.9 (0.1-0.6) H 02/16/17 06:30 Eos # 0.7 (0.0-0.7) 02/16/17 06:30 Baso # 0.08 K/mm3 (0.0-2.0) 02/16/17 06:30 Sodium 141 mmol/L (132-148) 02/16/17 06:30 Potassium 3.6 mmol/L (3.6-5.0) 02/16/17 06:30 Chloride 104 mmol/L (98-107) 02/16/17 06:30 Carbon Dioxide 30 mmol/L (21-33) 02/16/17 06:30 Anion Gap 11 (10-20) 02/16/17 06:30 BUN 12 mg/dL (7-21) 02/16/17 06:30 Creatinine 1.1 mg/dL (0.5-1.4) 02/16/17 06:30 Est GFR ( Amer) > 60 02/16/17 06:30 Est GFR (Non-Af Amer) > 60 02/16/17 06:30 POC Glucose (mg/dL) 157 mg/dL (65-110) H 02/16/17 10:19 Random Glucose 103 mg/dL (70-110) 02/16/17 06:30 Calcium 8.7 mg/dL (8.4-10.5) 02/16/17 06:30 Total Bilirubin 0.8 mg/dL (0.2-1.3) 02/16/17 06:30 AST 33 U/L (15-59) 02/16/17 06:30 ALT 29 U/L (7-56) 02/16/17 06:30 Alkaline Phosphatase 89 U/L (38-133) 02/16/17 06:30 Total Protein 6.6 g/dL (5.8-8.3) 02/16/17 06:30 Albumin 3.6 g/dL (3.0-4.8) 02/16/17 06:30 Globulin 3.0 gm/dL 02/16/17 06:30 Albumin/Globulin Ratio 1.2 (1.1-1.8) 02/16/17 06:30 Urine Color Yellow (YELLOW) 02/15/17 20:25 Urine Appearance Clear (CLEAR) 02/15/17 20:25 Urine pH 6.0 (4.7-8.0) 02/15/17 20:25 Ur Specific [place] 1.010 (1.005-1.035) 02/15/17 20:25 Urine Protein Negative mg/dL (<30 mg/dL) 02/15/17 20:25 Urine Glucose (UA) Negative mg/dL (NEGATIVE) 02/15/17 20:25 Urine Ketones Negative mg/dL (NEGATIVE) 02/15/17 20:25 Urine Blood Negative (NEGATIVE) 02/15/17 20:25 Urine Nitrate Negative (NEGATIVE) 02/15/17 20:25 Urine Bilirubin Negative (NEGATIVE) 02/15/17 20:25 Urine Urobilinogen 0.2 E.U./dL (<1 E.U./dL) 02/15/17 20:25 Ur Leukocyte Esterase Negative Omar/uL (NEGATIVE) 02/15/17 20:25 Blood Type O POSITIVE 02/15/17 11:05 Antibody Screen Negative 02/15/17 11:05 Crossmatch See Detail 02/15/17 11:05 BBK History Checked Patient has bt 02/15/17 11:05 Attending/Attestation - Attestation I have personally seen and examined this patient.: Yes I have fully participated in the care of the patient.: Yes I have reviewed all pertinent clinical information, including history, physical exam and plan: Yes Notes (Text): I have seen and examined patient at bedside. This is 66 year old male with history of CAD s/p MICHOACANO. HTN, NIDDM, COPD, dyslipidemia, PUD, pulmonary hypertension, former tobacco user, esophagitis, gastric ulcer, duodenal AVM, Anemia, tubular adenomas who got admitted for observation s/p Ercp. He was treated with argon plasma anticoagulation and hemostasis was achieved with epinephrine injection and bipolar cautery. Patient appears well and has no complaints. He has been tolerating full liquid. Diet will be advanced to heart healthy. He will continue protonix daily. Plan to resume plavix tomorrow. There is no evidence of bleeding overnight. Hb is stable after 2 units of prbc overnight. Continue antihypertensive and hypoglycemic meds. Advised to have repeat cbc within 1 week. Upon discharge patient will be followed up by Dr Rowe and Dr Haley. Dr Citlalli Lou
== END 2017-02-16 14:43 | disposition home or self-care (01) ==
LOC: ENDO 07:18 → 5RSO 10:54 → UNDOADMIN 10:54 → 5RSO 12:11 → UNDODISIN 02-16 14:43 → ENDO 02-16 14:43
PROVIDERS: ATTEND Hospitalist
PROC: 0DJ08ZZ Inspection of Upper Intestinal Tract, Via Natural or Artificial Opening Endoscopic (ICD-10-PCS; 2017-02-15)
PROC: 30233N1 Transfusion of Nonautologous Red Blood Cells into Peripheral Vein, Percutaneous Approach (ICD-10-PCS; 2017-02-15)
PROC: 3E0G8GC Introduction of Other Therapeutic Substance into Upper GI, Via Natural or Artificial Opening Endoscopic (ICD-10-PCS; principal; 2017-02-15 10:00)
DX: K31.811 Angiodysplasia of stomach and duodenum with bleeding (principal); D62 Acute posthemorrhagic anemia; E11.8 Type 2 diabetes mellitus with unspecified complications; I27.2 Other secondary pulmonary hypertension; J44.9 Chronic obstructive pulmonary disease, unspecified; I10 Essential (primary) hypertension; I25.10 Atherosclerotic heart disease of native coronary artery without angina pectoris; N40.0 Benign prostatic hyperplasia without lower urinary tract symptoms; D12.3 Benign neoplasm of transverse colon; K27.9 Peptic ulcer, site unspecified, unspecified as acute or chronic, without hemorrhage or perforation; K20.9 Esophagitis, unspecified; E78.5 Hyperlipidemia, unspecified; Z79.84 Long term (current) use of oral hypoglycemic drugs; Z95.5 Presence of coronary angioplasty implant and graft; Z79.82 Long term (current) use of aspirin; Z87.891 Personal history of nicotine dependence
CPT/HCPCS: 36415; 36430; 43255; 80053; 81003; 82948; 85025 ×2; 85027; 86850; 86900; 86920; 87086; C9113 ×2; J0171; J2370; J2704; J3010; J7040 ×3; P9016

== ENCOUNTER 2017-03-15 15:30 | Observation (INO) | payer MEDICARE, OTHER ==
[2017-03-15 15:30] VITALS: BMI 28.6
[2017-03-15] MEDS ORDERED: Nitroglycerin 2% Ointment Foilpak UD TOP STA (15:58)
--- NOTE | 2017-03-15 16:13 | ED PDOC ---
Arrival/HPI - General Chief Complaint: Shortness Of Breath Time Seen by Provider: 03/15/17 15:51 Historian: Patient - History of Present Illness Narrative History of Present Illness (Text): 03/15/17 16:15 A 66 year old male, whose past medical history includes coronary artery disease (stent 09/2016), presents to the emergency department complaining of intermittent chest pain for a week. Patient describes pain as heaviness and worse with exertion. Patient notes mild shortness of breath when gets the pain. Patient had an EGD done last month. Patient is back on Plavix and Aspirin and reports taking both medications this morning. Patient quit smoking about 10 years ago and notes occasional alcohol use. Patient denies any other complaints at this time. Time/Duration: 1 week Symptom Onset: Sudden Symptom Course: Unchanged Activities at Onset: Rest Associated Symptoms (Text): mild shortness of breath 03/15/17 16:30 Approximately one week history of intermittent chest pain described as heaviness accompanied by shortness of breath and made worse by exertion. Currently pain-free. He did take his aspirin and Plavix this morning Past Medical History - Provider Review Nursing Documentation Reviewed: Yes - Infectious Disease Hx of Infectious Diseases: None - Cardiac Hx Cardiac Disorders: Yes (CAD) Hx Congestive Heart Failure: Yes Hx Hypertension: Yes Hx Pacemaker: No - Pulmonary Hx Respiratory Disorders: Yes (SMOKED CIGARETTES PPD QUIT 2004) Hx Asthma: Yes Hx Chronic Obstructive Pulmonary Disease (COPD): Yes - Neurological Hx Neurological Disorder: No - HEENT Hx HEENT Disorder: Yes (wears glasses) - Renal Hx Renal Disorder: No - Endocrine/Metabolic Hx Endocrine Disorders: Yes Hx Diabetes Mellitus Type 2: Yes - Hematological/Oncological Hx Blood Disorders: Yes Hx Anemia: Yes (with transfusion) Other/Comment: last transfusion was in January of 2017 - Integumentary Hx Dermatological Disorder: No - Musculoskeletal/Rheumatological Hx Musculoskeletal Disorders: Yes Hx Arthritis: Yes Hx Falls: No Hx Osteoarthritis: Yes Hx Spinal Stenosis: Yes Other/Comment: sciatica - Gastrointestinal Hx Gastrointestinal Disorders: Yes (COLON POLYPS,PYLORIC ULCER) - Genitourinary/Gynecological Hx Genitourinary Disorders: Yes Hx Prostate Problems: Yes (ENLARGED -BPH) - Psychiatric Hx Psychophysiologic Disorder: No Hx Emotional Abuse: No Hx Physical Abuse: No Hx Substance Use: No - Surgical History Hx Cardiac Catheterization: Yes Hx Coronary Stent: Yes (6) - Anesthesia Hx Anesthesia: Yes Hx Anesthesia Reactions: No Hx Malignant Hyperthermia: No - Suicidal Assessment Feels Threatened In Home Enviroment: No Family/Social History - Physician Review Nursing Documentation Reviewed: Yes Family/Social History: No Known Family HX Smoking Status: Former Smoker (10 years ago) Hx Alcohol Use: No Hx Substance Use: No Allergies/Home Meds Allergies/Adverse Reactions: Allergies No Known Allergies Allergy (Verified 03/15/17 15:34) Home Medications: Home Meds Medication Instructions Recorded Confirmed Adalimumab [Humira Pen] 40 mg SC Q15D 10/14/16 03/15/17 Albuterol 0.083% [Albuterol 0.083% 3 ml IH PRN PRN 10/14/16 03/15/17 Inhal Darleen (2.5 mg/3 ml) UD] Amlodipine/Valsartan [Exforge 1 each PO DAILY 10/14/16 03/15/17 5-320 mg Tablet] Fluticasone/Vilanterol [Breo 1 puff IH DAILY 10/14/16 03/15/17 Ellipta 100-25 Mcg INH] Linagliptin [Tradjenta] 5 mg PO DAILY 10/14/16 03/15/17 Metoprolol Tartrate [Lopressor] 25 mg PO BID 10/14/16 03/15/17 Montelukast [Singulair] 10 mg PO HS 10/14/16 03/15/17 Ranolazine [Ranexa] 500 mg PO BID 10/14/16 03/15/17 Umeclidinium [place] [Incruse 1 puff INH PRN PRN 10/14/16 03/15/17 Ellipta] Albuterol HFA [Ventolin HFA 90 1 puff IH PRN PRN 01/19/17 03/15/17 mcg/actuation (8 g)] Atorvastatin [Lipitor] 80 mg PO DAILY 01/19/17 03/15/17 Etodolac 300 mg PO PRN PRN 01/19/17 03/15/17 Pantoprazole Sodium [Protonix] 40 mg PO DAILY 01/19/17 03/15/17 Tamsulosin [Flomax] 0.4 mg PO DAILY 01/19/17 03/15/17 Clopidogrel [Plavix] 75 mg PO DAILY 02/01/17 03/15/17 Aspirin [Adult Low Dose Aspirin EC] 81 mg PO DAILY 02/08/17 03/15/17 Review of Systems - Physician Review All systems were reviewed & negative as marked: Yes - Review of Systems Constitutional: Normal Respiratory: SOB. absent: Cough Cardiovascular: Chest Pain. absent: Palpitations, Syncope Gastrointestinal: absent: Abdominal Pain, Nausea, Vomiting Neurological: absent: Headache, Dizziness Physical Exam Vital Signs Reviewed: Yes Vital Signs Temp Pulse Resp BP Pulse Ox 03/15/17 18:30 92 H 18 128/76 97 03/15/17 16:23 98 H 20 136/72 99 03/15/17 15:40 98.5 F 90 20 137/84 97 Temperature: Afebrile Blood Pressure: Normal Pulse: Regular Respiratory Rate: Normal Appearance: Positive for: Well-Appearing, Non-Toxic, Comfortable Pain Distress: None Mental Status: Positive for: Alert and Oriented X 3 - Systems Exam Head: Present: Atraumatic, Normocephalic Pupils: Present: PERRL Extroacular Muscles: Present: EOMI Conjunctiva: Present: Normal Mouth: Present: Moist Mucous Membranes Pharnyx: No: ERYTHEMA, EXUDATE, TONSILS ENLARGED Neck: Present: Normal Range of Motion Respiratory/Chest: Present: Clear to Auscultation, Good Air Exchange. No: Respiratory Distress, Accessory Muscle Use, Tender to Palpation Cardiovascular: Present: Regular Rate and Rhythm, Normal S1, S2. No: Murmurs Abdomen: Present: Normal Bowel Sounds. No: Tenderness, Distention, Peritoneal Signs Back: Present: Normal Inspection Upper Extremity: Present: Normal Inspection. No: Cyanosis, Edema Lower Extremity: Present: Normal Inspection. No: Edema Neurological: Present: GCS=15, CN II-XII Intact, Speech Normal, Motor Func Grossly Intact Skin: Present: Warm, Dry, Normal Color. No: Rashes Psychiatric: Present: Alert, Oriented x 3, Normal Insight, Normal Concentration Medical Decision Making ED Course and Treatment: 03/15/17 16:11 Impression: A 66 year old female with intermittent chest pain. Plan: -- EKG -- chest xray -- labs -- Nitroglycerin -- Reassess and disposition Prior Visits: Notes and results from previous visits were reviewed. Patient last reported to the emergency department on 01/27/17 for evaluation of black stool and anemia. Patient was hospitalized for further evaluation. Progress Notes: 03/15/17 16:32 EKG shows normal sinus rhythm rate approximately 95 with a primary AV block and nonspecific ST-T changes with no acute change 03/15/17 17:[address] Ibarra, who accepts patient to telemetry admission. - Lab Interpretations Lab Results: 03/15/17 16:15 03/15/17 16:15 Lab Results 03/15/17 16:15: Sodium 140, Potassium 3.4 L, Chloride 103, Carbon Dioxide 28, Anion Gap 12, BUN 14, Creatinine 1.1, Est GFR ( Amer) > 60, Est GFR (Non- Af Amer) > 60, Random Glucose 123 H, Calcium 8.6, Total Bilirubin 0.6, AST 42, ALT 23, Alkaline Phosphatase 84, Lactate Dehydrogenase 475, Total Creatine Kinase 78, Troponin I < 0.01, Total Protein 6.8, Albumin 3.7, Globulin 3.0, Albumin/Globulin Ratio 1.2 03/15/17 16:15: PT 11.0, INR 1.02, APTT 25.0 03/15/17 16:15: WBC 7.0, RBC 3.49 L, Hgb 7.4 L, Hct 24.4 L, MCV 69.9 L, MCH 21.2 L, MCHC 30.3 L, RDW 19.9 H, Plt Count 380, MPV 8.3, Gran % 59.6, Lymph % ( Auto) 19.3 L, [place] % (Auto) 10.8 H, Eos % (Auto) 9.6 H, Baso % (Auto) 0.7, Gran # 4.15, Lymph # 1.3, [place] # 0.8 H, Eos # 0.7, Baso # 0.05 I have reviewed the lab results: Yes - RAD Interpretation Radiology Orders: 03/15/17 15:57 CHEST PORTABLE [RAD] Stat Chest one view shows cardiomegaly and atelectasis with no infiltrate or effusion 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: ED Physician - EKG Interpretation Interpreted by ED Physician: Yes Type: 12 lead EKG - Medication Orders Current Medication Orders: Albuterol/Ipratropium (Duoneb 3 Mg/0.5 Mg (3 Ml) Ud) 3 ml IH [id number] DONNY Albuterol/Ipratropium (Duoneb 3 Mg/0.5 Mg (3 Ml) Ud) 3 ml IH Q2H PRN PRN Reason: Shortness of Breath Amlodipine Besylate (Norvasc) 5 mg PO DAILY [facility] Arformoterol Tartrate (Brovana) 15 mcg IH [id number] [facility] Atorvastatin Calcium (Lipitor) 80 mg PO DAILY [facility] Last Admin: 03/15/17 18:30 Dose: 80 mg Budesonide (Pulmicort Respules) 0.25 mg IH [id number] [facility] Guaifenesin (Robitussin) 200 mg PO Q4H PRN PRN Reason: Cough and congestion Sodium Chloride (Sodium Chloride 0.9%) 1,000 mls @ 75 mls/hr IV .[id number] [facility] Last Admin: 03/15/17 18:28 Dose: 75 mls/hr Insulin Human Regular (Humulin R Low) 0 units SC ACHS [facility] PRN Reason: Protocol Metoprolol Tartrate (Lopressor) 25 mg PO BID [facility] Last Admin: 03/15/17 18:29 Dose: 25 mg Montelukast Sodium (Singulair) 10 mg PO HS [facility] Non-Formulary Medication (Fluticasone/Vilanterol [Breo Ellipta 100-25 Mcg Inh]) 1 puff IH DAILY [facility] Last Admin: 03/15/17 18:45 Dose: Non-Formulary Medication (Ranolazine [Ranexa]) 500 mg PO BID [facility] Last Admin: 03/15/17 18:49 Dose: Pantoprazole Sodium (Protonix Inj) 40 mg IVP Q12 [facility] Tamsulosin HCl (Flomax) 0.4 mg PO DAILY [facility] Last Admin: 03/15/17 18:29 Dose: 0.4 mg Valsartan (Diovan) 320 mg PO DAILY [facility] Discontinued Medications Nitroglycerin (Nitro-Bid 2% Oint) 1 ea TOP STAT STA Stop: 03/15/17 15:59 Last Admin: 03/15/17 16:14 Dose: 1 ea Pantoprazole Sodium (Protonix Inj) 40 mg IVP STAT STA Stop: 03/15/17 18:18 Last Admin: 03/15/17 18:28 Dose: 40 mg - Scribe Statement The provider has reviewed the documentation as recorded by the Lacie Mcmullen Provider Scribe Attestation: All medical record entries made by the Scribe were at my direction and personally dictated by me. I have reviewed the chart and agree that the record accurately reflects my personal performance of the history, physical exam, medical decision making, and the department course for this patient. I have also personally directed, reviewed, and agree with the discharge instructions and disposition. Disposition/Present on Arrival - Present on Arrival Any Indicators Present on Arrival: No History of DVT/PE: No History of Uncontrolled Diabetes: No Urinary Catheter: No History of Decub. Ulcer: No History Surgical Site Infection Following: None - Disposition Have Diagnosis and Disposition been Completed?: Yes Diagnosis: Anemia, Chest pain, Dyspnea Disposition: HOSPITALIZED Disposition Time: 17:28 Patient Plan: Observation, Telemetry Patient Problems: Current Active Problems Problem Status Onset Anemia Acute Chest pain Acute Dyspnea Acute Condition: FAIR
[2017-03-15 16:27] LABS: ADD MANUAL DIFF? NO
[2017-03-15 16:40] LABS: BASO # 0.05 K/mm3 (0.0-2.0); BASO % 0.7 % (0.0-3.0); EOS # 0.7 (0.0-0.7); EOS % 9.6 % (1.5-5.0); GRAN # 4.15 (1.4-6.5); GRAN % 59.6 % (50.0-68.0); HEMATOCRIT 24.4 % (42.0-52.0); LYMPH # 1.3 (1.2-3.4); LYMPH % 19.3 % (22.0-35.0); MEAN CELL VOLUME 69.9 fL (80.0-105.0); MEAN CORPUSCULAR HEMOGLOBIN 21.2 pg (25.0-35.0); MEAN CORPUSCULAR HGB CONC 30.3 g/dl (31.0-37.0); MEAN PLATELET VOLUME 8.3 fl (7.0-11.0); MONO # 0.8 (0.1-0.6); MONO % 10.8 % (1.0-6.0); PLATELET COUNT 380 10^3/uL (120.0-450.0); RED CELL DISTRIBUTION WIDTH 19.9 % (11.5-14.5)
[2017-03-15 16:44] LABS: INR 1.02 (0.93-1.08)
[2017-03-15 16:47] LABS: ALB/GLOB RATIO 1.2 (1.1-1.8); ALKALINE PHOSPHATASE 84 U/L (38-133); ALT/SGPT 23 U/L (7-56); AST/SGOT 42 U/L (15-59); BILIRUBIN,TOTAL 0.6 mg/dL (0.2-1.3); BLOOD UREA NITROGEN 14 mg/dL (7-21); CALCIUM 8.6 mg/dL (8.4-10.5); CARBON DIOXIDE 28 mmol/L (21-33); CHLORIDE 103 mmol/L (98-107); GFR AFRICAN-AMERICAN > 60; GLUCOSE,RANDOM 123 mg/dL (70-110); POTASSIUM 3.4 mmol/L (3.6-5.0); SODIUM 140 mmol/L (132-148); TOTAL PROTEIN 6.8 g/dL (5.8-8.3)
[2017-03-15 16:59] LABS: TROPONIN I < 0.01 ng/mL
[2017-03-15] MEDS ORDERED: Albuterol-Ipratrop 3 mg / 0.5 (3 ml) UD IH PRN (18:02)
[2017-03-15] MEDS ORDERED: guaiFENesin 200 mg/10 ml Syrup UD PO PRN (18:06)
[2017-03-15] MEDS ORDERED: Sodium Chloride 0.9% 1,000 ML IV SCH (18:15)
--- NOTE | 2017-03-15 18:20 | CP.PCM.HP ---
<Radha Frank - Last Filed: 03/15/17 23:43> History of Present Illness - History of Present Illness History of Present Illness: Medicine note for Dr. Ibarra 66 yo M w/PMHx of CAD with six stents, COPD, rhematoid arthritis, DM2, presents with one week of intermittent chest heaviness and SOB with exertion. Reports two episodes of dark tarry stools last PM and this AM. Denies fever, n/v/ abdominal pain. Had admission in 12/2016 for GI bleed. PMHx of CAD with stents, COPD, rhematoid arthritis, DM2 Psxhx: 6 coronary stents allergies: NKDA medications: see MAR social: former smoker, denies recent etoh, and denies illicit drugs Present on Admission - Present on Admission Any Indicators Present on Admission: No Review of Systems - Review of Systems All systems: reviewed and no additional remarkable complaints except - Constitutional Constitutional: absent: Chills, Fever - Cardiovascular Cardiovascular: Chest Pain, Dyspnea - Respiratory Respiratory: Cough, Dyspnea - Gastrointestinal Gastrointestinal: absent: Abdominal Pain, Diarrhea Past Patient History - Infectious Disease Hx of Infectious Diseases: None - Past Medical History & Family History Past Medical History?: Yes - Past Social History Smoking Status: Former Smoker (10 years ago) - CARDIAC Hx Cardiac Disorders: Yes (CAD) Hx Congestive Heart Failure: Yes Hx Hypertension: Yes Hx Pacemaker: No - PULMONARY Hx Respiratory Disorders: Yes (SMOKED CIGARETTES PPD QUIT 2004) Hx Asthma: Yes Hx Chronic Obstructive Pulmonary Disease (COPD): Yes - NEUROLOGICAL Hx Neurological Disorder: No - HEENT Hx HEENT Problems: Yes (wears glasses) - RENAL Hx Chronic Kidney Disease: No - ENDOCRINE/METABOLIC Hx Endocrine Disorders: Yes Hx Diabetes Mellitus Type 2: Yes - HEMATOLOGICAL/ONCOLOGICAL Hx Blood Disorders: Yes Hx Anemia: Yes (with transfusion) Other/Comment: last transfusion was in January of 2017 - INTEGUMENTARY Hx Dermatological Problems: No - MUSCULOSKELETAL/RHEUMATOLOGICAL Hx Musculoskeletal Disorders: Yes Hx Arthritis: Yes Hx Falls: No Hx Osteoarthritis: Yes Hx Spinal Stenosis: Yes Other/Comment: sciatica - GASTROINTESTINAL Hx Gastrointestinal Disorders: Yes (COLON POLYPS,PYLORIC ULCER) - GENITOURINARY/GYNECOLOGICAL Hx Genitourinary Disorders: Yes Hx Prostate Problems: Yes (ENLARGED -BPH) - PSYCHIATRIC Hx Psychophysiologic Disorder: No Hx Emotional Abuse: No Hx Physical Abuse: No Hx Substance Use: No - SURGICAL HISTORY Hx Cardiac Catheterization: Yes Hx Coronary Stent: Yes (6) - ANESTHESIA Hx Anesthesia: Yes Hx Anesthesia Reactions: No Hx Malignant Hyperthermia: No Meds Home Medications: Home Medication List Medication Instructions Recorded Confirmed Type Pantoprazole [Protonix EC Tab] 40 mg PO 0730,1630 #40 ect 03/16/17 Rx Valsartan [Diovan] 320 mg PO DAILY tab 03/16/17 Rx Allergies/Adverse Reactions: Allergies Allergy/AdvReac Type Severity Reaction Status Date / Time No Known Allergies Allergy Verified 03/15/17 15:34 Physical Exam - Constitutional Appears: Non-toxic, No Acute Distress - Head Exam Head Exam: ATRAUMATIC, NORMOCEPHALIC - Eye Exam Eye Exam: EOMI, Normal appearance - ENT Exam ENT Exam: Mucous Membranes Moist, Normal Exam - Respiratory Exam Respiratory Exam: Clear to Auscultation Bilateral, NORMAL BREATHING PATTERN - Cardiovascular Exam Cardiovascular Exam: +S1, +S2. absent: Bradycardia - GI/Abdominal Exam GI & Abdominal Exam: Soft. absent: Tenderness - Rectal Exam Rectal Exam: Deferred - Exam External exam: absent: Ecchymosis, Erythema - Extremities Exam Extremities exam: Positive for: normal capillary refill, pedal pulses present - Neurological Exam Neurological exam: Alert, Oriented x3 - Skin Skin Exam: Intact, Pallor Results - Vital Signs Recent Vital Signs: Last Vital Signs Temp 98.5 F 03/15/17 15:40 Pulse 98 H 03/15/17 16:23 Resp 20 03/15/17 16:23 BP 136/72 03/15/17 16:23 Pulse Ox 99 03/15/17 16:23 - Labs Result Diagrams: 03/15/17 16:15 03/15/17 16:15 Assessment & Plan - Assessment and Plan (Free Text) Plan: 66 yo M w/PMHx of CAD with six stents, COPD, rhematoid arthritis, DM2, presents with one week of intermittent chest heaviness and SOB with exertion. Reports two episodes of dark tarry stools last PM and this AM. Anemia 2/2 to likely GI bleed: hemoglobin initially 7.4 protonix, ranolazine NS @ 75 cc/hr transfusion today of 1PRBC, repeat H/H, monitor Consent signed by pt at 1757 03/15/2017 GI consult requested, help appreciated COPD: Duonebs prn and errol, brovana, fluticasone, montelukast 10 hs DM: ISS, accuchecks CAD: metoprolol 25 BID, Norvasc 5, Diovan 320mg qd on hold: ASA, PLAVIX Chest pain: initial troponin negative, f/u repeat. EKG with NSR in 90s [address] elevations/depressions/LBBB Cardiology consulted, help appreciated PPX: protonix. ASA and Plavix on hold due to likely bleed. <Kenneth Ibarra - Last Filed: 03/16/17 16:34> Results - Vital Signs Recent Vital Signs: Last Vital Signs Temp 98.5 F 03/16/17 05:53 Pulse 97 H 03/16/17 14:00 Resp 22 03/16/17 10:16 BP 129/71 03/16/17 10:17 Pulse Ox 94 L 03/16/17 05:53 - Labs Result Diagrams: 03/16/17 09:00 03/16/17 09:00 Labs: Laboratory Results - last 24 hr 03/16/17 03/16/17 03/16/17 00:30 07:33 09:00 WBC RBC Hgb Hct MCV MCH MCHC RDW Plt Count MPV Sodium 141 Potassium 3.3 L Chloride 103 Carbon Dioxide 27 Anion Gap 14 BUN 15 Creatinine 1.1 Est GFR ( Amer) > 60 Est GFR (Non-Af Amer) > 60 POC Glucose (mg/dL) 116 H Random Glucose 117 H Calcium 8.7 Lactate Dehydrogenase 458 482 Total Creatine Kinase 75 70 Troponin I < 0.01 < 0.01 03/16/17 03/16/17 09:00 11:05 WBC 9.5 D RBC 4.03 Hgb 9.1 L Hct 29.0 L MCV 72.0 L MCH 22.6 L MCHC 31.4 RDW 19.4 H Plt Count 321 MPV 7.9 Sodium Potassium Chloride Carbon Dioxide Anion Gap BUN Creatinine Est GFR ( Amer) Est GFR (Non-Af Amer) POC Glucose (mg/dL) 118 H Random Glucose Calcium Lactate Dehydrogenase Total Creatine Kinase Troponin I Attending/Attestation - Attestation I have personally seen and examined this patient.: Yes I have fully participated in the care of the patient.: Yes I have reviewed all pertinent clinical information: Yes Notes (Text): 03/16/17 16:28 Attending note; Patient seen and examined with resident in ER. Patient's by the bedside. Patient is a 66 year old Male with the PMHx of CAD with six stents in 10/16, COPD, rhematoid arthritis, DM2, presents with one week of intermittent chest heaviness and SOB with exertion. Reports two episodes of dark tarry stools last PM and this AM. Found to have hemoglobin of 7.4. 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 wilde. Currently no active bleeding. 2 units of PRBC transfusion ordered. Patient already took aspirin and Plavix today. Will hold till evaluated by GI. Nothing by mouth past midnight. Chest discomfort; secondary to anemia. Cardiac enzymes 1 negative. Case discussed with auto body mechanic apprentice in detail. We will follow up with GI for further plan. Upon discharge the patient will follow up with PMD . 03/16/17 16:33
[2017-03-15] MEDS: Non Formulary Medication (Fluticasone/Vilanterol [Breo Ellipta 100-25 Mcg Inh] 1 PUFF) IH SCH (18:45)
[2017-03-15] MEDS: Non Formulary Medication (Ranolazine [Ranexa] 500 MG) PO SCH (18:49)
[2017-03-15] MEDS ORDERED: Budesonide 0.25 mg/2 ml Inhal Susp UD IH SCH (20:00)
[2017-03-15] MEDS ORDERED: Arformoterol 15 mcg/2 ml Inh Sol IH SCH (20:00)
[2017-03-15] MEDS: Insulin Reg-LOW-Coverage SC SCH (21:10)
[2017-03-15] MEDS ORDERED: Fluticasone-Salmeterol 100-50mcg Diskus IH SCH (22:00)
[2017-03-16 01:27] LABS: TROPONIN I < 0.01 ng/mL
--- NOTE | 2017-03-16 01:51 | CARD ---
APPROVED REPORT EKG Measurement Heart [id number] OR 206P33 [id number] <Conclusion> Normal sinus rhythm Nonspecific ST abnormality Prolonged QT Abnormal ECG
[2017-03-16] MEDS: Albuterol-Ipratrop 3 mg / 0.5 (3 ml) UD IH SCH ×3 (03:49→14:08)
[2017-03-16 05:54] VITALS: TEMP 98.5; O2SAT 94
[2017-03-16] MEDS: Insulin Reg-LOW-Coverage SC SCH ×2 (08:31→13:57)
--- NOTE | 2017-03-16 08:53 | RAD ---
HISTORY: cp COMPARISON: 01/18/2017 FINDINGS: LUNGS: No active pulmonary disease. PLEURA: No significant pleural effusion identified, no pneumothorax apparent. CARDIOVASCULAR: Normal. OSSEOUS STRUCTURES: No significant abnormalities. VISUALIZED UPPER ABDOMEN: Normal. OTHER FINDINGS: None. IMPRESSION: No active disease.
--- NOTE | 2017-03-16 08:53 | CP.PCM.CON ---
History of Present Illness - History of Present Illness History of Present Illness: A 66 year old male, whose past medical history includes coronary artery disease (stent 09/2016), presents to the emergency department complaining of intermittent chest pain for a week. Patient describes pain as heaviness and worse with exertion. Patient notes mild shortness of breath when gets the pain. Patient had an EGD done last month with results suggesting gastritis and angiodysplasia requiring epinephrine injection. Patient is back on Plavix and Aspirin and reports taking both medications this morning. Patient quit smoking about 10 years ago and notes occasional alcohol use. Patient denies any other complaints at this time. On admission found to have severe anemia Hgb 7.4 now s/p 2u PRBCs. Today: no CP , mild cough clear sputum, no fever and resting SOB. Troponin x2 negative and EKG as read by me NSR without ischemic changes, mild congestion on CXR which was directly visualized by me. PMHX: HTN: chronic labile, dyslipidemia: chronic on RX, COPD chronic recurrent, DM: chronic stable, RA, Gout, Gastritis, Anemia PSHX: No CABG SOCHX: Former smoker, No ETOH or IVDA ROS: mildly active, all 12 systems negative except for HPI Review of Systems - Review of Systems All systems: reviewed and no additional remarkable complaints except Past Patient History - Infectious Disease Hx of Infectious Diseases: None - Past Medical History & Family History Past Medical History?: Yes - Past Social History Smoking Status: Former Smoker (10 years ago) - CARDIAC Hx Cardiac Disorders: Yes (CAD) Hx Congestive Heart Failure: Yes Hx Hypertension: Yes Hx Pacemaker: No - PULMONARY Hx Respiratory Disorders: Yes (SMOKED CIGARETTES PPD QUIT 2004) Hx Asthma: Yes Hx Chronic Obstructive Pulmonary Disease (COPD): Yes - NEUROLOGICAL Hx Neurological Disorder: No - HEENT Hx HEENT Problems: Yes (wears glasses) - RENAL Hx Chronic Kidney Disease: No - ENDOCRINE/METABOLIC Hx Endocrine Disorders: Yes Hx Diabetes Mellitus Type 2: Yes - HEMATOLOGICAL/ONCOLOGICAL Hx Blood Disorders: Yes Hx Anemia: Yes (with transfusion) Other/Comment: last transfusion was in January of 2017 - INTEGUMENTARY Hx Dermatological Problems: No - MUSCULOSKELETAL/RHEUMATOLOGICAL Hx Musculoskeletal Disorders: Yes Hx Arthritis: Yes Hx Falls: No Hx Osteoarthritis: Yes Hx Spinal Stenosis: Yes Other/Comment: sciatica - GASTROINTESTINAL Hx Gastrointestinal Disorders: Yes (COLON POLYPS,PYLORIC ULCER) - GENITOURINARY/GYNECOLOGICAL Hx Genitourinary Disorders: Yes Hx Prostate Problems: Yes (ENLARGED -BPH) - PSYCHIATRIC Hx Psychophysiologic Disorder: No Hx Emotional Abuse: No Hx Physical Abuse: No Hx Substance Use: No - SURGICAL HISTORY Hx Cardiac Catheterization: Yes Hx Coronary Stent: Yes (6) - ANESTHESIA Hx Anesthesia: Yes Hx Anesthesia Reactions: No Hx Malignant Hyperthermia: No Meds Allergies/Adverse Reactions: Allergies Allergy/AdvReac Type Severity Reaction Status Date / Time No Known Allergies Allergy Verified 03/15/17 15:34 - Medications Medications: Current Medications Albuterol/Ipratropium (Duoneb 3 Mg/0.5 Mg (3 Ml) Ud) 3 ml IH [id number] [facility] Last Admin: 03/16/17 08:16 Dose: 3 ml Albuterol/Ipratropium (Duoneb 3 Mg/0.5 Mg (3 Ml) Ud) 3 ml IH Q2H PRN PRN Reason: Shortness of Breath Amlodipine Besylate (Norvasc) 5 mg PO DAILY [facility] Arformoterol Tartrate (Brovana) 15 mcg IH [id number] [facility] Last Admin: 03/16/17 08:16 Dose: 15 mcg Atorvastatin Calcium (Lipitor) 80 mg PO DAILY [facility] Last Admin: 03/15/17 18:30 Dose: 80 mg Budesonide (Pulmicort Respules) 0.25 mg IH [id number] [facility] Last Admin: 03/16/17 08:16 Dose: 0.25 mg Guaifenesin (Robitussin) 200 mg PO Q4H PRN PRN Reason: Cough and congestion Last Admin: 03/16/17 04:35 Dose: 200 mg Sodium Chloride (Sodium Chloride 0.9%) 1,000 mls @ 75 mls/hr IV [id number] [facility] Last Admin: 03/15/17 18:28 Dose: 75 mls/hr Insulin Human Regular (Humulin R Low) 0 units SC ACHS [facility] PRN Reason: Protocol Last Admin: 03/16/17 08:31 Dose: Not Given Metoprolol Tartrate (Lopressor) 25 mg PO BID [facility] Last Admin: 03/15/17 18:29 Dose: 25 mg Montelukast Sodium (Singulair) 10 mg PO HS [facility] Last Admin: 03/15/17 21:30 Dose: 10 mg Non-Formulary Medication (Fluticasone/Vilanterol [Breo Ellipta 100-25 Mcg Inh]) 1 puff IH DAILY [facility] Last Admin: 03/15/17 18:45 Dose: Not Given Non-Formulary Medication (Ranolazine [Ranexa]) 500 mg PO BID [facility] Last Admin: 03/15/17 18:49 Dose: Not Given Pantoprazole Sodium (Protonix Inj) 40 mg IVP Q12 [facility] Last Admin: 03/15/17 23:48 Dose: 40 mg Tamsulosin HCl (Flomax) 0.4 mg PO DAILY [facility] Last Admin: 03/15/17 18:29 Dose: 0.4 mg Valsartan (Diovan) 320 mg PO DAILY [facility] Physical Exam - Constitutional Appears: No Acute Distress - Head Exam Head Exam: ATRAUMATIC, NORMAL INSPECTION, NORMOCEPHALIC - Eye Exam Eye Exam: EOMI, Normal appearance, PERRL - ENT Exam ENT Exam: Mucous Membranes Moist, Normal Oropharynx - Respiratory Exam Respiratory Exam: Clear to Auscultation Bilateral, Wheezes (mild), NORMAL BREATHING PATTERN. absent: Rales - Cardiovascular Exam Cardiovascular Exam: REGULAR RHYTHM, +S1, +S2. absent: +S4, Systolic Murmur - GI/Abdominal Exam GI & Abdominal Exam: Normal Bowel Sounds, Soft. absent: Tenderness - Extremities Exam Extremities exam: Positive for: pedal pulses present. Negative for: calf tenderness, pedal edema - Neurological Exam Neurological exam: Alert, Oriented x3 - Psychiatric Exam Psychiatric exam: Normal Affect, Normal Mood - Skin Skin Exam: Normal Color, Warm Results - Vital Signs Recent Vital Signs: Last Vital Signs Temp 98.5 F 03/16/17 05:53 Pulse 71 03/16/17 05:53 Resp 20 03/16/17 05:53 BP 124/68 03/16/17 08:39 Pulse Ox 94 L 03/16/17 05:53 - Labs Result Diagrams: 03/15/17 16:15 03/15/17 16:15 Labs: Laboratory Results - last 24 hr 03/16/17 00:30 Lactate Dehydrogenase 458 Total Creatine Kinase 75 Troponin I < 0.01 - EKG Data EKG Interpreted by: Myself EKG shows normal: Sinus rhythm Rate: Normal - Imaging and Cardiology Chest x-ray Status: Image reviewed by me (mild congestion) Assessment & Plan - Assessment and Plan (Free Text) Assessment: 1. Symptomatic anemia: low Hgb 7.4, low mcv 2. CAD: s/p MICHOACANO to RCA 09/2016: known non-obstructive prior stents in LAD and OM 3. Known Normal LVEF > currently Troponin negative x2 thus no ACS, No ischemic changes on EKG and CP free > SOB: likely symptom of anemia: now s/p PRBCs; agree with lasix to reduce volume overload > Given severe anemia: and CAD with recent stent (MICHOACANO) to RCA 09/2016: R&B of continuation of dual antiplatelets must be weighed against active bleeding. > I suggest continuation of atleast Plavix 75 daily if both ASA and Plavix not possible > await GI eval. > Add Ranexa 500 BID, cont metoprolol and diovan and statin. > Supportive care for COPD/bronchitis
--- NOTE | 2017-03-16 09:03 | CP.PCM.CON ---
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 Patient has had extensive GI work up previously with multiple EGDs and capsule endoscopy. 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 He returns to the hospital with complaint of three days of worsening shortness of breath and melanotic stool. Concerned that he had become anemic again, he came to the ED for further evaluation where his HGB was noted to be 7.4. Patient received 1 unit PRBCs overnight. Continues to have productive cough and shortness of breath. Denies any abdomianl pain, cramping, diarrhea, nausea, vomiting. PMHx: See HPI PSHx: PCI with MICHOACANO to RCA FHx: Mother - HTN Social: Prior smoker, denies EtOH or illicit drug use Endo: 02/15 - EGD - Cautery of duodenal AVM 01/15 - EGD - LA Class A esophagitis, angiodysplasia of 2nd portion of duodenum 10/2016 - EGD - LA Class B esophagitis, PUD (gastric ulcer) 10/2015 - Colonoscopy - Transverse colon polyp (tubular adenoma) Review of Systems - Constitutional Constitutional: absent: Anorexia, Chills, Fever - EENT Eyes: absent: Change in Vision Nose/Mouth/Throat: absent: Sore Throat - Cardiovascular Cardiovascular: Dyspnea, Dyspnea on Exertion. absent: Chest Pain, Edema - Respiratory Respiratory: Cough, Dyspnea, Excessive Mucous Production - Gastrointestinal Gastrointestinal: Melena. absent: Abdominal Pain, Bloating, Constipation, Diarrhea, Dyspepsia, Dysphagia, Heartburn, Hematemesis, Hematochezia, Nausea, Vomiting - Genitourinary Genitourinary: absent: Dysuria, Urinary Frequency, Urinary Urgency - Musculoskeletal Musculoskeletal: absent: Back Pain, Neck Pain - Integumentary Integumentary: absent: New Lesions, Rash - Neurological Neurological: absent: Dizziness, Numbness, Focal Weakness - Psychiatric Psychiatric: absent: Anxiety, Depression - Endocrine Endocrine: absent: Polydipsia, Polyphagia, Polyuria - Hematologic/Lymphatic Hematologic: absent: Easy Bleeding, Easy Bruising, Lymphadenopathy Past Patient History - Infectious Disease Hx of Infectious Diseases: None - Past Medical History & Family History Past Medical History?: Yes - Past Social History Smoking Status: Former Smoker (10 years ago) - CARDIAC Hx Cardiac Disorders: Yes (CAD) Hx Congestive Heart Failure: Yes Hx Hypertension: Yes Hx Pacemaker: No - PULMONARY Hx Respiratory Disorders: Yes (SMOKED CIGARETTES PPD QUIT 2004) Hx Asthma: Yes Hx Chronic Obstructive Pulmonary Disease (COPD): Yes - NEUROLOGICAL Hx Neurological Disorder: No - HEENT Hx HEENT Problems: Yes (wears glasses) - RENAL Hx Chronic Kidney Disease: No - ENDOCRINE/METABOLIC Hx Endocrine Disorders: Yes Hx Diabetes Mellitus Type 2: Yes - HEMATOLOGICAL/ONCOLOGICAL Hx Blood Disorders: Yes Hx Anemia: Yes (with transfusion) Other/Comment: last transfusion was in January of 2017 - INTEGUMENTARY Hx Dermatological Problems: No - MUSCULOSKELETAL/RHEUMATOLOGICAL Hx Musculoskeletal Disorders: Yes Hx Arthritis: Yes Hx Falls: No Hx Osteoarthritis: Yes Hx Spinal Stenosis: Yes Other/Comment: sciatica - GASTROINTESTINAL Hx Gastrointestinal Disorders: Yes (COLON POLYPS,PYLORIC ULCER) - GENITOURINARY/GYNECOLOGICAL Hx Genitourinary Disorders: Yes Hx Prostate Problems: Yes (ENLARGED -BPH) - PSYCHIATRIC Hx Psychophysiologic Disorder: No Hx Emotional Abuse: No Hx Physical Abuse: No Hx Substance Use: No - SURGICAL HISTORY Hx Cardiac Catheterization: Yes Hx Coronary Stent: Yes (6) - ANESTHESIA Hx Anesthesia: Yes Hx Anesthesia Reactions: No Hx Malignant Hyperthermia: No Meds Allergies/Adverse Reactions: Allergies Allergy/AdvReac Type Severity Reaction Status Date / Time No Known Allergies Allergy Verified 03/15/17 15:34 - Medications Medications: Current Medications Albuterol/Ipratropium (Duoneb 3 Mg/0.5 Mg (3 Ml) Ud) 3 ml IH [id number] [facility] Last Admin: 03/16/17 08:16 Dose: 3 ml Albuterol/Ipratropium (Duoneb 3 Mg/0.5 Mg (3 Ml) Ud) 3 ml IH Q2H PRN PRN Reason: Shortness of Breath Amlodipine Besylate (Norvasc) 5 mg PO DAILY [facility] Arformoterol Tartrate (Brovana) 15 mcg IH [id number] [facility] Last Admin: 03/16/17 08:16 Dose: 15 mcg Atorvastatin Calcium (Lipitor) 80 mg PO DAILY [facility] Last Admin: 03/15/17 18:30 Dose: 80 mg Budesonide (Pulmicort Respules) 0.25 mg IH [id number] [facility] Last Admin: 03/16/17 08:16 Dose: 0.25 mg Guaifenesin (Robitussin) 200 mg PO Q4H PRN PRN Reason: Cough and congestion Last Admin: 03/16/17 04:35 Dose: 200 mg Sodium Chloride (Sodium Chloride 0.9%) 1,000 mls @ 75 mls/hr IV .[id number] [facility] Last Admin: 03/15/17 18:28 Dose: 75 mls/hr Insulin Human Regular (Humulin R Low) 0 units SC ACHS [facility] PRN Reason: Protocol Last Admin: 03/16/17 08:31 Dose: Not Given Metoprolol Tartrate (Lopressor) 25 mg PO BID [facility] Last Admin: 03/15/17 18:29 Dose: 25 mg Montelukast Sodium (Singulair) 10 mg PO HS [facility] Last Admin: 03/15/17 21:30 Dose: 10 mg Non-Formulary Medication (Fluticasone/Vilanterol [Breo Ellipta 100-25 Mcg Inh]) 1 puff IH DAILY [facility] Last Admin: 03/15/17 18:45 Dose: Not Given Non-Formulary Medication (Ranolazine [Ranexa]) 500 mg PO BID [facility] Last Admin: 03/15/17 18:49 Dose: Not Given Pantoprazole Sodium (Protonix Inj) 40 mg IVP Q12 [facility] Last Admin: 03/15/17 23:48 Dose: 40 mg Tamsulosin HCl (Flomax) 0.4 mg PO DAILY [facility] Last Admin: 03/15/17 18:29 Dose: 0.4 mg Valsartan (Diovan) 320 mg PO DAILY [facility] Physical Exam - Constitutional Appears: Non-toxic, No Acute Distress - Eye Exam Eye Exam: EOMI, PERRL - ENT Exam ENT Exam: Mucous Membranes Moist - Respiratory Exam Respiratory Exam: Clear to Auscultation Bilateral. absent: Rales, Rhonchi, Wheezes - Cardiovascular Exam Cardiovascular Exam: RRR, +S1, +S2 - GI/Abdominal Exam GI & Abdominal Exam: Normal Bowel Sounds, Soft. absent: Distended, Firm, Guarding, Organomegaly, Rigid, Tenderness - Rectal Exam Rectal Exam: NORMAL INSPECTION. absent: Black Stool, Bloody Stool, Hemorrhoids Additional comments: brown stool - Extremities Exam Extremities exam: Positive for: normal inspection. Negative for: pedal edema - Neurological Exam Neurological exam: Alert, Oriented x3 - Psychiatric Exam Psychiatric exam: Normal Affect, Normal Mood - Skin Skin Exam: Dry, Warm Results - Vital Signs Recent Vital Signs: Last Vital Signs Temp 98.5 F 03/16/17 05:53 Pulse 71 03/16/17 05:53 Resp 20 03/16/17 05:53 BP 124/68 03/16/17 08:39 Pulse Ox 94 L 03/16/17 05:53 - Labs Result Diagrams: 03/16/17 09:00 03/16/17 09:00 Labs: Laboratory Results - last 24 hr 03/16/17 00:30 Lactate Dehydrogenase 458 Total Creatine Kinase 75 Troponin I < 0.01 Assessment & Plan - Assessment and Plan (Free Text) Assessment: Patient is a 66yo male with PMHx significant for blood loss anemia, 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 -Blood loss anemia -Duodenal AVM Plan: -HGB improved s/p 2 units PRBCs -Will need repeat EGD for evaluation of ongoing anemia with recent history of bleeding duodenal AVM; patient/family to discuss plan moving forward and will contact Dr Terrazas's office to schedule procedure if they choose to do so -Continue ASA/Plavix for now; will need to be held prior to procedure if EGD to be performed -Can switch protonix to PO BIDAC - Date & Time Date: 03/16/17 Time: 07:30 <Kendrick Terrazas - Last Filed: 03/16/17 13:17> Meds - Medications Medications: Current Medications Albuterol/Ipratropium (Duoneb 3 Mg/0.5 Mg (3 Ml) Ud) 3 ml IH [id number] [facility] Last Admin: 03/16/17 08:16 Dose: 3 ml Albuterol/Ipratropium (Duoneb 3 Mg/0.5 Mg (3 Ml) Ud) 3 ml IH Q2H PRN PRN Reason: Shortness of Breath Amlodipine Besylate (Norvasc) 5 mg PO DAILY [facility] Last Admin: 03/16/17 10:17 Dose: 5 mg Arformoterol Tartrate (Brovana) 15 mcg IH [id number] [facility] Last Admin: 03/16/17 08:16 Dose: 15 mcg Atorvastatin Calcium (Lipitor) 80 mg PO DAILY [facility] Last Admin: 03/16/17 10:17 Dose: 80 mg Budesonide (Pulmicort Respules) 0.25 mg IH [id number] [facility] Last Admin: 03/16/17 08:16 Dose: 0.25 mg Guaifenesin (Robitussin) 200 mg PO Q4H PRN PRN Reason: Cough and congestion Last Admin: 03/16/17 04:35 Dose: 200 mg Sodium Chloride (Sodium Chloride 0.9%) 1,000 mls @ 75 mls/hr IV .[id number] [facility] Last Admin: 03/15/17 18:28 Dose: 75 mls/hr Insulin Human Regular (Humulin R Low) 0 units SC ACHS [facility] PRN Reason: Protocol Last Admin: 03/16/17 08:31 Dose: Not Given Metoprolol Tartrate (Lopressor) 25 mg PO BID [facility] Last Admin: 03/16/17 10:17 Dose: 25 mg Montelukast Sodium (Singulair) 10 mg PO HS [facility] Last Admin: 03/15/17 21:30 Dose: 10 mg Non-Formulary Medication (Fluticasone/Vilanterol [Breo Ellipta 100-25 Mcg Inh]) 1 puff IH DAILY [facility] Last Admin: 03/15/17 18:45 Dose: Not Given Non-Formulary Medication (Ranolazine [Ranexa]) 500 mg PO BID [facility] Last Admin: 03/15/17 18:49 Dose: Not Given Pantoprazole Sodium (Protonix Ec Tab) 40 mg PO 0730,1630 [facility] Potassium Chloride (K-Dur 20 Meq Er Tab) 20 meq PO ONCE ONE Stop: 03/16/17 13:09 Tamsulosin HCl (Flomax) 0.4 mg PO DAILY [facility] Last Admin: 03/16/17 10:17 Dose: 0.4 mg Valsartan (Diovan) 320 mg PO DAILY [facility] Last Admin: 03/16/17 10:19 Dose: 320 mg Results - Vital Signs Recent Vital Signs: Last Vital Signs Temp 98.5 F 03/16/17 05:53 Pulse 109 H 03/16/17 10:17 Resp 22 03/16/17 10:16 BP 129/71 03/16/17 10:17 Pulse Ox 94 L 03/16/17 05:53 - Labs Result Diagrams: 03/16/17 09:00 03/16/17 09:00 Labs: Laboratory Results - last 24 hr 03/16/17 03/16/17 03/16/17 00:30 09:00 09:00 WBC 9.5 D RBC 4.03 Hgb 9.1 L Hct 29.0 L MCV 72.0 L MCH 22.6 L MCHC 31.4 RDW 19.4 H Plt Count 321 MPV 7.9 Sodium 141 Potassium 3.3 L Chloride 103 Carbon Dioxide 27 Anion Gap 14 BUN 15 Creatinine 1.1 Est GFR ( Amer) > 60 Est GFR (Non-Af Amer) > 60 Random Glucose 117 H Calcium 8.7 Lactate Dehydrogenase 458 482 Total Creatine Kinase 75 70 Troponin I < 0.01 < 0.01 Attending/Attestation - Attestation I have personally seen and examined this patient.: Yes I have fully participated in the care of the patient.: Yes I have reviewed all pertinent clinical information: Yes Notes (Text): 03/16/17 13:13 66 year old male with h/o angiodysplasia of the duodenum s/p cautery, HTN, HLD, pulmonary hypertension, CAD s/p stenting, DM, COPD who presented to the ED with complaint of shortness of breath and dark stool. 1. Duodenal AVM 2. Acute blood loss anemia Plan: -s/p transfusion of 2 units of blood -continue PPI -continue ASA/Plavix -recommend elective repeat EGD with duodenoscope to reassess previously bleeding AVM -would hold plavix 5 days preop -family is going to discuss and let me know if they would like to schedul -advance diet and discharge today
[2017-03-16 09:26] LABS: MEAN CORPUSCULAR HEMOGLOBIN 22.6 pg (25.0-35.0); MEAN CORPUSCULAR HGB CONC 31.4 g/dl (31.0-37.0); MEAN PLATELET VOLUME 7.9 fl (7.0-11.0); RED CELL DISTRIBUTION WIDTH 19.4 % (11.5-14.5); WHITE BLOOD COUNT 9.5 10^3/ul (4.5-11.0)
[2017-03-16 09:32] LABS: BLOOD UREA NITROGEN 15 mg/dL (7-21); CALCIUM 8.7 mg/dL (8.4-10.5); CARBON DIOXIDE 27 mmol/L (21-33); CHLORIDE 103 mmol/L (98-107); GFR AFRICAN-AMERICAN > 60; GLUCOSE,RANDOM 117 mg/dL (70-110); POTASSIUM 3.3 mmol/L (3.6-5.0); SODIUM 141 mmol/L (132-148)
[2017-03-16 09:47] LABS: TROPONIN I < 0.01 ng/mL
[2017-03-16 10:17] VITALS: BP 129/71; RESP 22
[2017-03-16] MEDS ORDERED: Potassium Chloride 20 mEq ER Tab PO ONE (13:08)
[2017-03-16] MEDS ORDERED: MethylPREDNISolone 40 mg Vial IVP STA (13:30)
[2017-03-16] MEDS: Non Formulary Medication (Ranolazine [Ranexa] 500 MG) PO SCH (14:00)
[2017-03-16 14:45] VITALS: PULSE 97
--- NOTE | 2017-03-16 16:08 | CP.PCM.DIS ---
<Kari Kay - Last Filed: 03/16/17 16:08> Provider - Provider Date of Admission: 03/15/17 17:25 Attending physician: Kenneth Ibarra MD Primary care physician: Ulises Bailey MD Time Spent in preparation of Discharge (in minutes): 50 Hospital Course - Lab Results Lab Results: Most Recent Lab Values WBC 9.5 10^3/ul (4.5-11.0) D 03/16/17 09:00 RBC 4.03 10^6/uL (3.5-6.1) 03/16/17 09:00 Hgb 9.1 gm/dL (14.0-18.0) L 03/16/17 09:00 Hct 29.0 % (42.0-52.0) L 03/16/17 09:00 MCV 72.0 fL (80.0-105.0) L 03/16/17 09:00 MCH 22.6 pg (25.0-35.0) L 03/16/17 09:00 MCHC 31.4 g/dl (31.0-37.0) 03/16/17 09:00 RDW 19.4 % (11.5-14.5) H 03/16/17 09:00 Plt Count 321 10^3/uL (120.0-450.0) 03/16/17 09:00 MPV 7.9 fl (7.0-11.0) 03/16/17 09:00 Gran % 59.6 % (50.0-68.0) 03/15/17 16:15 Lymph % (Auto) 19.3 % (22.0-35.0) L 03/15/17 16:15 [place] % (Auto) 10.8 % (1.0-6.0) H 03/15/17 16:15 Eos % (Auto) 9.6 % (1.5-5.0) H 03/15/17 16:15 Baso % (Auto) 0.7 % (0.0-3.0) 03/15/17 16:15 Gran # 4.15 (1.4-6.5) 03/15/17 16:15 Lymph # 1.3 (1.2-3.4) 03/15/17 16:15 [place] # 0.8 (0.1-0.6) H 03/15/17 16:15 Eos # 0.7 (0.0-0.7) 03/15/17 16:15 Baso # 0.05 K/mm3 (0.0-2.0) 03/15/17 16:15 PT 11.0 Seconds (9.9-11.8) 03/15/17 16:15 INR 1.02 (0.93-1.08) 03/15/17 16:15 APTT 25.0 Seconds (23.7-30.8) 03/15/17 16:15 Sodium 141 mmol/L (132-148) 03/16/17 09:00 Potassium 3.3 mmol/L (3.6-5.0) L 03/16/17 09:00 Chloride 103 mmol/L (98-107) 03/16/17 09:00 Carbon Dioxide 27 mmol/L (21-33) 03/16/17 09:00 Anion Gap 14 (10-20) 03/16/17 09:00 BUN 15 mg/dL (7-21) 03/16/17 09:00 Creatinine 1.1 mg/dL (0.5-1.4) 03/16/17 09:00 Est GFR ( Amer) > 60 03/16/17 09:00 Est GFR (Non-Af Amer) > 60 03/16/17 09:00 Random Glucose 117 mg/dL (70-110) H 03/16/17 09:00 Calcium 8.7 mg/dL (8.4-10.5) 03/16/17 09:00 Total Bilirubin 0.6 mg/dL (0.2-1.3) 03/15/17 16:15 AST 42 U/L (15-59) 03/15/17 16:15 ALT 23 U/L (7-56) 03/15/17 16:15 Alkaline Phosphatase 84 U/L (38-133) 03/15/17 16:15 Lactate Dehydrogenase 482 U/L (333-699) 03/16/17 09:00 Total Creatine Kinase 70 U/L (35-230) 03/16/17 09:00 Troponin I < 0.01 ng/mL 03/16/17 09:00 Total Protein 6.8 g/dL (5.8-8.3) 03/15/17 16:15 Albumin 3.7 g/dL (3.0-4.8) 03/15/17 16:15 Globulin 3.0 gm/dL 03/15/17 16:15 Albumin/Globulin Ratio 1.2 (1.1-1.8) 03/15/17 16:15 Blood Type O POSITIVE 03/15/17 17:25 Antibody Screen Negative 03/15/17 17:25 Crossmatch See Detail 03/15/17 17:25 BBK History Checked Patient has bt 03/15/17 17:25 - Hospital Course Hospital Course: 66 yo M w/PMHx of CAD with six stents, COPD, rheumatoid arthritis, DM2, presented with one week of intermittent chest heaviness, SOB with exertion and two episodes of dark tarry stools. Patient's hemoglobin initially 7.4. He was transfused 2 units PRBCs. He was given protonix and ranolazine. COPD medications were continues. GI was consulted, they recommended repeat EGD for evaluation of ongoing anemia with recent history of bleeding duodenal AVM. Patient and family decided to discuss before moving forward. They were instructed to contact Dr Wilde's office to schedule procedure. Patient had Troponin negative x3, EKG showed no ischemic changes. Patient reports SOB and was given does of lasix and low dose steroids. SOB improved. Cardiology was consulted. The risk and benefits of anti-platelet medication was discussed with patient. Patient was informed to Follow up with foreign collection clerk in 03/18. If patient decides to have EGD on Thursday 03/22, he is to hold plavix. Patient can restart aspirin as per GI. Patient is to follow up with PMD in 3-5 days. Patient is to increase protonix to BID as per GI. Patient is aware of hospital course, discharge plan was discussed with patient he is in agreement. Discharge Exam - Head Exam Head Exam: ATRAUMATIC, NORMAL INSPECTION, NORMOCEPHALIC - Eye Exam Eye Exam: Normal appearance - ENT Exam ENT Exam: Mucous Membranes Moist - Respiratory Exam Respiratory Exam: Clear to PA & Lateral, Rhonchi, UNREMARKABLE. absent: Wheezes , Respiratory Distress, NORMAL BREATHING PATTERN - Cardiovascular Exam Cardiovascular Exam: REGULAR RHYTHM. absent: Tachycardia, Diastolic murmur, Systolic Murmur - GI/Abdominal Exam GI & Abdominal Exam: Normal Bowel Sounds, Soft. absent: Distended, Firm, Guarding, Tenderness - Extremities Exam Extremities exam: normal inspection - Neurological Exam Neurological exam: Alert, Oriented x3 - Skin Skin Exam: Dry, Intact, Normal Color, Warm Discharge Plan - Discharge Medications Prescriptions: Pantoprazole [Protonix EC Tab] 40 mg PO 0730,1630 #40 ect - Follow Up Plan Condition: FAIR Disposition: HOME/ ROUTINE Instructions: Chest Pain (DC), Dyspnea (GEN), Anemia (DC) Additional Instructions: Patient is stable for discharge home. Discharge instructions: - follow up with PMD in 3-5 days - follow up with Dr. Wilde for outpatient EGD, if patient decides to have EGD on Wednesday he is to hold plavix medication - Follow up with foreign collection clerk on 03/18/17. - Patient can restart aspirin as per GI New medications: protonix 40mg BID Referrals: Ulises Bailey MD [Primary Care Provider] - Daren Man MD [Medical Doctor] - Kendrick Wilde MD [Staff Provider] - <Kenneth Ibarra - Last Filed: 03/16/17 16:42> Provider - Provider Date of Admission: 03/15/17 17:25 Attending physician: Kenneth Ibarra MD Primary care physician: Ulises Bailey MD Hospital Course - Lab Results Lab Results: Most Recent Lab Values WBC 9.5 10^3/ul (4.5-11.0) D 03/16/17 09:00 RBC 4.03 10^6/uL (3.5-6.1) 03/16/17 09:00 Hgb 9.1 gm/dL (14.0-18.0) L 03/16/17 09:00 Hct 29.0 % (42.0-52.0) L 03/16/17 09:00 MCV 72.0 fL (80.0-105.0) L 03/16/17 09:00 MCH 22.6 pg (25.0-35.0) L 03/16/17 09:00 MCHC 31.4 g/dl (31.0-37.0) 03/16/17 09:00 RDW 19.4 % (11.5-14.5) H 03/16/17 09:00 Plt Count 321 10^3/uL (120.0-450.0) 03/16/17 09:00 MPV 7.9 fl (7.0-11.0) 03/16/17 09:00 Gran % 59.6 % (50.0-68.0) 03/15/17 16:15 Lymph % (Auto) 19.3 % (22.0-35.0) L 03/15/17 16:15 [place] % (Auto) 10.8 % (1.0-6.0) H 03/15/17 16:15 Eos % (Auto) 9.6 % (1.5-5.0) H 03/15/17 16:15 Baso % (Auto) 0.7 % (0.0-3.0) 03/15/17 16:15 Gran # 4.15 (1.4-6.5) 03/15/17 16:15 Lymph # 1.3 (1.2-3.4) 03/15/17 16:15 [place] # 0.8 (0.1-0.6) H 03/15/17 16:15 Eos # 0.7 (0.0-0.7) 03/15/17 16:15 Baso # 0.05 K/mm3 (0.0-2.0) 03/15/17 16:15 PT 11.0 Seconds (9.9-11.8) 03/15/17 16:15 INR 1.02 (0.93-1.08) 03/15/17 16:15 APTT 25.0 Seconds (23.7-30.8) 03/15/17 16:15 Sodium 141 mmol/L (132-148) 03/16/17 09:00 Potassium 3.3 mmol/L (3.6-5.0) L 03/16/17 09:00 Chloride 103 mmol/L (98-107) 03/16/17 09:00 Carbon Dioxide 27 mmol/L (21-33) 03/16/17 09:00 Anion Gap 14 (10-20) 03/16/17 09:00 BUN 15 mg/dL (7-21) 03/16/17 09:00 Creatinine 1.1 mg/dL (0.5-1.4) 03/16/17 09:00 Est GFR ( Amer) > 60 03/16/17 09:00 Est GFR (Non-Af Amer) > 60 03/16/17 09:00 POC Glucose (mg/dL) 118 mg/dL (65-110) H 03/16/17 11:05 Random Glucose 117 mg/dL (70-110) H 03/16/17 09:00 Calcium 8.7 mg/dL (8.4-10.5) 03/16/17 09:00 Total Bilirubin 0.6 mg/dL (0.2-1.3) 03/15/17 16:15 AST 42 U/L (15-59) 03/15/17 16:15 ALT 23 U/L (7-56) 03/15/17 16:15 Alkaline Phosphatase 84 U/L (38-133) 03/15/17 16:15 Lactate Dehydrogenase 482 U/L (333-699) 03/16/17 09:00 Total Creatine Kinase 70 U/L (35-230) 03/16/17 09:00 Troponin I < 0.01 ng/mL 03/16/17 09:00 Total Protein 6.8 g/dL (5.8-8.3) 03/15/17 16:15 Albumin 3.7 g/dL (3.0-4.8) 03/15/17 16:15 Globulin 3.0 gm/dL 03/15/17 16:15 Albumin/Globulin Ratio 1.2 (1.1-1.8) 03/15/17 16:15 Blood Type O POSITIVE 03/15/17 17:25 Antibody Screen Negative 03/15/17 17:25 Crossmatch See Detail 03/15/17 17:25 BBK History Checked Patient has bt 03/15/17 17:25 Attending/Attestation - Attestation I have personally seen and examined this patient.: Yes I have fully participated in the care of the patient.: Yes I have reviewed all pertinent clinical information, including history, physical exam and plan: Yes Notes (Text): 03/16/17 16:36 Attending note; Patient seen and examined with resident. Patient's by the bedside. Patient is a 66 year old Male with the PMHx of CAD with six stents in 10/16, COPD, rhematoid arthritis, DM2, presents with one week of intermittent chest heaviness and SOB with exertion. Reports two episodes of dark tarry stools last PM and this AM. Symptomatic anemia ;Found to have hemoglobin of 7.4. Status post 2 units PRBC transfusion. Hemoglobin is 9.1 today. No active bleeding. 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 wilde. GI evaluation appreciated. Advised to continue aspirin. Hold Plavix if patient is willing to come for EGD on Wednesday. Patient and patient's have not decided about EGD. Advised to call Dr. Wilde tomorrow to schedule an appointment for EGD. Chest discomfort; secondary to anemia. Cardiac enzymes 3 negative. Cardiology evaluation appreciated. Risks and benefits of aspirin and Plavix discussed in detail. Patient will follow-up with him on COPD; continue DuoNeb treatment. Got 1 dose IV Solu-Medrol. Continue home medication. Upon discharge the patient will follow up with PMD . Follow-up with Dr. Wilde GI. Follow-up with cardiology. Diagnosis; Symptomatic anemia Status post blood transfusion Angiodysplasia Coronary artery disease and stent placement COPD 03/16/17 16:41
[2017-03-16] MEDS ORDERED: Pantoprazole 40 mg EC Tab PO SCH (16:30)
[2017-03-16] MEDS: Non Formulary Medication (Fluticasone/Vilanterol [Breo Ellipta 100-25 Mcg Inh] 1 PUFF) IH SCH (16:44)
== END 2017-03-16 17:50 | disposition home or self-care (01) ==
LOC: ED 15:30 → ERH 17:25 → 2RSO 20:15
PROVIDERS: ADMIT Internal Medicine; ATTEND Internal Medicine
DX: D62 Acute posthemorrhagic anemia (principal); K31.819 Angiodysplasia of stomach and duodenum without bleeding; I25.10 Atherosclerotic heart disease of native coronary artery without angina pectoris; E11.9 Type 2 diabetes mellitus without complications; J44.9 Chronic obstructive pulmonary disease, unspecified; M06.9 Rheumatoid arthritis, unspecified; M10.9 Gout, unspecified; E78.5 Hyperlipidemia, unspecified; I27.2 Other secondary pulmonary hypertension; I11.0 Hypertensive heart disease with heart failure; I50.9 Heart failure, unspecified; N40.0 Benign prostatic hyperplasia without lower urinary tract symptoms; Z79.02 Long term (current) use of antithrombotics/antiplatelets; Z79.82 Long term (current) use of aspirin; Z95.5 Presence of coronary angioplasty implant and graft; Z87.891 Personal history of nicotine dependence
CPT/HCPCS: 36415; 36430; 71010; 80048; 80053; 82550; 82948; 83615; 84484; 85025; 85027; 85610; 85730; 86850; 86900; 86920; 93005; 94640; 94760; 96374; 99285; C9113; G0378; J1940; J2920; J7040; P9016

== ENCOUNTER 2017-03-31 11:11 | Day surgery (SDC) | payer MEDICARE ==
[2017-03-31 12:03] LABS: ADD MANUAL DIFF? NO
[2017-03-31 12:16] LABS: INR 1.02 (0.93-1.08); PARTIAL THROMBOPLASTIN TIME 25.1 Seconds (23.7-30.8)
[2017-03-31 12:17] LABS: BASO # 0.05 K/mm3 (0.0-2.0); BASO % 0.6 % (0.0-3.0); EOS # 0.6 (0.0-0.7); EOS % 7.9 % (1.5-5.0); GRAN # 5.41 (1.4-6.5); GRAN % 66.8 % (50.0-68.0); HEMATOCRIT 26.5 % (42.0-52.0); LYMPH # 1.3 (1.2-3.4); LYMPH % 15.7 % (22.0-35.0); MEAN CELL VOLUME 69.7 fL (80.0-105.0); MEAN CORPUSCULAR HEMOGLOBIN 21.6 pg (25.0-35.0); MEAN CORPUSCULAR HGB CONC 30.9 g/dl (31.0-37.0); MEAN PLATELET VOLUME 8.2 fl (7.0-11.0); MONO # 0.7 (0.1-0.6); PLATELET COUNT 391 10^3/uL (120.0-450.0); RED CELL DISTRIBUTION WIDTH 19.7 % (11.5-14.5); WHITE BLOOD COUNT 8.1 10^3/ul (4.5-11.0)
[2017-03-31 12:25] LABS: ALB/GLOB RATIO 1.3 (1.1-1.8); ALKALINE PHOSPHATASE 106 U/L (38-133); ALT/SGPT 28 U/L (7-56); AST/SGOT 57 U/L (15-59); BILIRUBIN,TOTAL 0.6 mg/dL (0.2-1.3); BLOOD UREA NITROGEN 14 mg/dL (7-21); CARBON DIOXIDE 27 mmol/L (21-33); CHLORIDE 105 mmol/L (98-107); GFR AFRICAN-AMERICAN > 60; GLUCOSE,RANDOM 98 mg/dL (70-110); POTASSIUM 3.6 mmol/L (3.6-5.0); SODIUM 141 mmol/L (132-148); TOTAL PROTEIN 7.3 g/dL (5.8-8.3)
[2017-03-31] MEDS ORDERED: Propofol 10 mg/ml Inj (20 ML) ONE ×2 (13:52→14:36)
[2017-03-31] MEDS ORDERED: Etomidate 20 mg/10ml Inj IV ONE (13:52)
[2017-03-31] MEDS ORDERED: Midazolam 2 MG/2 ML VIAL ONE (13:52)
[2017-03-31] MEDS ORDERED: Lidocaine 2% Inj (20ml) ONE (13:52)
[2017-03-31] MEDS ORDERED: Benzocaine/Butamben/Tetracai 14-2-2% TOP Spray TOP ONE (13:54)
[2017-03-31] MEDS ORDERED: Lactated Ringer's 1,000 ML IV SCH (14:54)
[2017-03-31 16:17] VITALS: PULSE 86; RESP 20; TEMP 97.5; O2SAT 99
[2017-03-31 16:45] VITALS: BP 125/86
== END 2017-03-31 16:45 | disposition home or self-care (01) ==
LOC: ENDO 11:11
PROVIDERS: ATTEND Internal Medicine
DX: K31.811 Angiodysplasia of stomach and duodenum with bleeding (principal); K44.9 Diaphragmatic hernia without obstruction or gangrene; K29.70 Gastritis, unspecified, without bleeding; J44.9 Chronic obstructive pulmonary disease, unspecified; I10 Essential (primary) hypertension; M06.9 Rheumatoid arthritis, unspecified; I25.10 Atherosclerotic heart disease of native coronary artery without angina pectoris
CPT/HCPCS: 36415; 43255; 80053; 85025; 85610; 85730; 86850; 86900; J2250; J2704; J3010; J7030; J7120

== ENCOUNTER 2017-04-14 07:22 | Observation (INO) | payer MEDICARE ==
[2017-04-14 07:23] VITALS: BMI 28.6
--- NOTE | 2017-04-14 07:59 | ED PDOC ---
Arrival/HPI - General Chief Complaint: Abnormal Labs Time Seen by Provider: 04/14/17 07:24 Historian: Patient - History of Present Illness Narrative History of Present Illness (Text): 04/14/17 07:50 A 66 year old male, whose past medical history includes CAD with 6 stents, COPD , Asthma, rhematoid arthritis, Pre-diabetes, and GI bleed, presents to the emergency department for evaluation of a low hemoglobin count. Patient reports he was informed that he has a low hemoglobin count and was advised to come to the emergency department for further evaluation. Patient states he did have some rectal bleeding few days ago but it has stopped. He denies any fever, abdominal pain, nausea, vomiting, or any other complaints at this time. PMD: Dr. Bailey GI: Dr. Dia Past Medical History - Provider Review Nursing Documentation Reviewed: Yes - Infectious Disease Hx of Infectious Diseases: None - Cardiac Hx Hypertension: Yes Hx Pacemaker: No - Pulmonary Hx Respiratory Disorders: Yes (SMOKED CIGARETTES PPD QUIT 2004) Hx Asthma: Yes Hx Chronic Obstructive Pulmonary Disease (COPD): Yes - Neurological Hx Paralysis: No - HEENT Hx HEENT Disorder: Yes (wears glasses) - Renal Hx Renal Disorder: No - Endocrine/Metabolic Hx Endocrine Disorders: Yes Hx Diabetes Mellitus Type 2: Yes - Hematological/Oncological Hx Anemia: Yes Hx Blood Transfusions: Yes Hx Blood Transfusion Reaction: No - Integumentary Hx Dermatological Disorder: No - Musculoskeletal/Rheumatological Hx Musculoskeletal Disorders: Yes (RA) - Gastrointestinal Hx Gastrointestinal Disorders: Yes (COLON POLYPS,PYLORIC ULCER) - Genitourinary/Gynecological Hx Genitourinary Disorders: Yes Hx Prostate Problems: Yes (ENLARGED -BPH) - Psychiatric Hx Emotional Abuse: No Hx Physical Abuse: No Hx Substance Use: No - Surgical History Hx Cardiac Catheterization: Yes Hx Coronary Stent: Yes (6) - Anesthesia Hx Anesthesia: Yes Hx Anesthesia Reactions: No Hx Malignant Hyperthermia: No - Suicidal Assessment Feels Threatened In Home Enviroment: No Family/Social History - Physician Review Nursing Documentation Reviewed: Yes Family/Social History: Unknown Family HX Smoking Status: Former Smoker Hx Alcohol Use: No Hx Substance Use: No Allergies/Home Meds Allergies/Adverse Reactions: Allergies No Known Allergies Allergy (Verified 04/14/17 07:46) Home Medications: Home Meds Medication Instructions Recorded Confirmed Adalimumab [Humira Pen] 40 mg SC Q15D 10/14/16 04/14/17 Albuterol 0.083% [Albuterol 0.083% 3 ml IH PRN PRN 10/14/16 04/14/17 Inhal Darleen (2.5 mg/3 ml) UD] Amlodipine/Valsartan [Exforge 1 tab PO DAILY 10/14/16 04/14/17 5-320 mg Tablet] Fluticasone/Vilanterol [Breo 1 puff IH QAM 10/14/16 04/14/17 Ellipta 100-25 Mcg INH] Linagliptin [Tradjenta] 5 mg PO DAILY 10/14/16 04/14/17 Metoprolol Tartrate [Lopressor] 25 mg PO BID 10/14/16 04/14/17 Montelukast [Singulair] 10 mg PO HS 10/14/16 04/14/17 Ranolazine [Ranexa] 500 mg PO BID 10/14/16 04/14/17 Umeclidinium [place] [Incruse 1 puff INH QPM 10/14/16 04/14/17 Ellipta] Albuterol HFA [Ventolin HFA 90 1 puff IH PRN PRN 01/19/17 04/14/17 mcg/actuation (8 g)] Atorvastatin [Lipitor] 80 mg PO DAILY 01/19/17 04/14/17 Etodolac 300 mg PO PRN PRN 01/19/17 04/14/17 Tamsulosin [Flomax] 0.4 mg PO DAILY 01/19/17 04/14/17 Clopidogrel [Plavix] 75 mg PO DAILY 02/01/17 04/14/17 Aspirin [Adult Low Dose Aspirin EC] 81 mg PO DAILY 02/08/17 04/14/17 Pantoprazole [Protonix EC Tab] 40 mg PO DAILY 03/24/17 04/14/17 Review of Systems - Physician Review All systems were reviewed & negative as marked: Yes - Review of Systems Constitutional: Other (low hemoglobin count). absent: Fevers Respiratory: absent: SOB Cardiovascular: absent: Chest Pain Gastrointestinal: absent: Abdominal Pain, Nausea, Vomiting Physical Exam Vital Signs Reviewed: Yes Vital Signs Temp Pulse Resp BP Pulse Ox 04/14/17 09:20 87 18 130/68 99 04/14/17 07:40 98.6 F 100 H 20 147/79 99 Temperature: Afebrile Blood Pressure: Normal Pulse: Regular Respiratory Rate: Normal Appearance: Positive for: Well-Appearing, Non-Toxic, Comfortable Pain Distress: None Mental Status: Positive for: Alert and Oriented X 3 - Systems Exam Head: Present: Atraumatic, Normocephalic Pupils: Present: PERRL Extroacular Muscles: Present: EOMI Conjunctiva: Present: Other (pale) Mouth: Present: Moist Mucous Membranes Neck: Present: Normal Range of Motion Respiratory/Chest: Present: Clear to Auscultation, Good Air Exchange. No: Respiratory Distress, Accessory Muscle Use Cardiovascular: Present: Regular Rate and Rhythm, Normal S1, S2. No: Murmurs Abdomen: Present: Normal Bowel Sounds. No: Tenderness, Distention, Peritoneal Signs, Rebound, Guarding Back: Present: Normal Inspection Upper Extremity: Present: Normal Inspection. No: Cyanosis, Edema Lower Extremity: Present: Normal Inspection. No: Edema Neurological: Present: GCS=15, CN II-XII Intact, Speech Normal Skin: Present: Warm, Dry, Normal Color. No: Rashes Psychiatric: Present: Alert, Oriented x 3, Normal Insight, Normal Concentration Medical Decision Making ED Course and Treatment: 04/14/17 07:50 Impression: A 66 year old male with a low hemoglobin count. Differential Diagnosis include but are not limited to: GI bleed Plan: -- Labs -- Reassess and disposition Prior Visits: Notes and results from previous visits were reviewed. The patient last presented to the emergency department on 03/15/17 for evaluation of intermittent chest pain. Progress Notes: 04/14/17 08:25 Patient lab work shows a hemoglobin count of 8 but patient transcriptionist suggest patient get a blood transfusion due to history of AV value malfunction. Patient has signed blood transfusion consent. 04/14/17 09:[address] Bailey, who is aware and states to admit the patient to the hospitalist services. 04/14/17 09:[address] Ibarra, who is aware and agrees with the plan to place the patient in in Med/Surg for observation under her services for GI bleed and Anemia. I have discussed the results and plan with the patient, who expresses understanding. Patient given the opportunity to ask question, all questions were answered and there is agreement with the plan to be admitted to the hospital. - Lab Interpretations Lab Results: 04/14/17 07:30 04/14/17 07:30 Lab Results 04/14/17 07:55: Blood Type O POSITIVE, Antibody Screen Negative, Crossmatch See Detail, BBK History Checked Patient has bt 04/14/17 07:30: Sodium 141, Potassium 3.4 L, Chloride 103, Carbon Dioxide 27, Anion Gap 14, BUN 13, Creatinine 1.2, Est GFR ( Amer) > 60, Est GFR (Non- Af Amer) > 60, Random Glucose 130 H, Calcium 8.9, Total Bilirubin 0.5, AST 67 H , ALT 18, Alkaline Phosphatase 106, Total Protein 7.7, Albumin 4.5, Globulin 3.2 , Albumin/Globulin Ratio 1.4 04/14/17 07:30: PT 10.9, INR 1.01, APTT 25.2 04/14/17 07:30: WBC 7.9, RBC 4.02, Hgb 8.1 L, Hct 27.3 L, MCV 67.9 L, MCH 20.1 L , MCHC 29.7 L, RDW 19.4 H, Plt Count 328, MPV 8.3, Gran % 59.1, Lymph % (Auto) 18.5 L, Nobles % (Auto) 12.7 H, Eos % (Auto) 8.7 H, Baso % (Auto) 1.0, Gran # 4.67 , Lymph # 1.5, Nobles # 1.0 H, Eos # 0.7, Baso # 0.08 I have reviewed the lab results: Yes - Medication Orders Current Medication Orders: Discontinued Medications Potassium Chloride (K-Dur 20 Meq Er Tab) 40 meq PO STAT STA Stop: 04/14/17 08:57 Last Admin: 04/14/17 09:09 Dose: 40 meq - Scribe Statement The provider has reviewed the documentation as recorded by the Lacie Loya Provider Angelesibe Attestation: All medical record entries made by the Scribe were at my direction and personally dictated by me. I have reviewed the chart and agree that the record accurately reflects my personal performance of the history, physical exam, medical decision making, and the department course for this patient. I have also personally directed, reviewed, and agree with the discharge instructions and disposition. Disposition/Present on Arrival - Present on Arrival Any Indicators Present on Arrival: No History of DVT/PE: No History of Uncontrolled Diabetes: No Urinary Catheter: No History of Decub. Ulcer: No History Surgical Site Infection Following: None - Disposition Have Diagnosis and Disposition been Completed?: Yes Diagnosis: Anemia, GI bleed Disposition: HOSPITALIZED Disposition Time: 09:47 Patient Plan: Admission Patient Problems: Current Active Problems Problem Status Onset Anemia Acute GI bleed Acute Condition: STABLE
[2017-04-14 08:18] LABS: ADD MANUAL DIFF? NO
[2017-04-14 08:23] LABS: BASO # 0.08 K/mm3 (0.0-2.0); EOS # 0.7 (0.0-0.7); EOS % 8.7 % (1.5-5.0); GRAN # 4.67 (1.4-6.5); GRAN % 59.1 % (50.0-68.0); HEMATOCRIT 27.3 % (42.0-52.0); LYMPH # 1.5 (1.2-3.4); LYMPH % 18.5 % (22.0-35.0); MEAN CELL VOLUME 67.9 fL (80.0-105.0); MEAN CORPUSCULAR HEMOGLOBIN 20.1 pg (25.0-35.0); MEAN CORPUSCULAR HGB CONC 29.7 g/dl (31.0-37.0); MEAN PLATELET VOLUME 8.3 fl (7.0-11.0); MONO % 12.7 % (1.0-6.0); PLATELET COUNT 328 10^3/uL (120.0-450.0); RED CELL DISTRIBUTION WIDTH 19.4 % (11.5-14.5); WHITE BLOOD COUNT 7.9 10^3/ul (4.5-11.0)
[2017-04-14 08:31] LABS: ALB/GLOB RATIO 1.4 (1.1-1.8); ALKALINE PHOSPHATASE 106 U/L (38-133); ALT/SGPT 18 U/L (7-56); AST/SGOT 67 U/L (15-59); BILIRUBIN,TOTAL 0.5 mg/dL (0.2-1.3); BLOOD UREA NITROGEN 13 mg/dL (7-21); CALCIUM 8.9 mg/dL (8.4-10.5); CARBON DIOXIDE 27 mmol/L (21-33); CHLORIDE 103 mmol/L (98-107); GFR AFRICAN-AMERICAN > 60; GLUCOSE,RANDOM 130 mg/dL (70-110); POTASSIUM 3.4 mmol/L (3.6-5.0); SODIUM 141 mmol/L (132-148); TOTAL PROTEIN 7.7 g/dL (5.8-8.3)
[2017-04-14 08:34] LABS: INR 1.01 (0.93-1.08); PARTIAL THROMBOPLASTIN TIME 25.2 Seconds (23.7-30.8)
[2017-04-14] MEDS ORDERED: Potassium Chloride 20 mEq ER Tab PO STA (08:56)
[2017-04-14] MEDS ORDERED: Albuterol HFA 90 mcg/actuation (8 g) IH PRN (10:43)
[2017-04-14] MEDS ORDERED: Albuterol 0.083% Inhal Sol (2.5 mg/3 mL) UD IH PRN (10:43)
[2017-04-14] MEDS ORDERED: Non Formulary Medication (Amlodipine/Valsartan [Exforge 5-320 Mg Tablet] 1 TAB) PO SCH (10:45)
[2017-04-14] MEDS ORDERED: Non Formulary Medication (Ranolazine [Ranexa] 500 MG) PO SCH ×2 (10:45→18:00)
[2017-04-14] MEDS ORDERED: Pantoprazole 40 mg EC Tab PO SCH (10:45)
--- NOTE | 2017-04-14 11:00 | CP.PCM.CON ---
<Marla Willard - Last Filed: 04/14/17 11:38> History of Present Illness - History of Present Illness History of Present Illness: CC: History of GI bleed, in need of transfusion 66 year old male with past medical history of CAD s/p stent x2, RA, NIDDM, HTN, COPD, PUD, hx of duodenal AVM with history of bleed presents to ED for blood transfusion. Patient was seen by Dr. Terrazas in clinic yesterday and was told to go to ED for blood transfusion. Patient's Hgb yesterday was noted to be 8.0 and today it is 8.1. Patient has an extensive history with GI bleeds. He was seen on 10/15/2016 for GI bleed. At that time he was given blood transfusion and EGD was done. EGD (10/15/2016) showed LA grade B esophagitis, gastric ulcer with clean base and duodenitis. He was discharged with Aspirin, plavix, PPI and carafte. Patient returned again on 01/18/17 with fatigue and was found to have Hgb of 5.7. He was again transfused PRBC and was recommended to have an outpatient capsule endoscopy. Capsule endoscopy on 01/26/17 showed bleeding duodenal AVM and he was sent to ED. Patient had repeat EGD done on 01/28/17 which showed LA Grade A esophagitis, non-bleeding AVM in duodenum which was treated with bipolar cautery. On 02/15/17, pt again had repeat EGD after experiencing melana and acute drop in Hgb. EGD showed actively bleeding AVM s/ p APC, bipolar cautery and epinephrine injection. On 03/31/17, repeat EGD was done. At that time patient was treated with bicap cauterization, and sclerotherapy at AVM. Since then, patient has had a stable Hgb of around 8.0. Today patient denies having any CP, SOB, abd pain, N/V/D/C, f/c. Patient states that stool is brown with no blood. 12 point ROS are negative except for above mentioned. PMHx; stated above PSHx: PCI with MICHOACANO to RCA FHx: Mother - HTN Social: Prior smoker, denies EtOH or illicit drug use Endo: 03/31 - treated with bicap cauterization, clipping and sclerotherapy 02/15 - EGD - Cautery of duodenal AVM 01/28 - LA Grade A esophagitis, non-bleeding AVM in duodenum 01/26 - Capsule endoscopy outpatient showed bleeding 10/2016 - EGD - LA Class B esophagitis, PUD (gastric ulcer) 10/2015 - Colonoscopy - Transverse colon polyp (tubular adenoma) Meds: See MAR Past Patient History - Infectious Disease Hx of Infectious Diseases: None - Past Medical History & Family History Past Medical History?: Yes - Past Social History Smoking Status: Former Smoker Chewing Tobacco Use: No Cigar Use: No - CARDIAC Hx Hypertension: Yes Hx Pacemaker: No - PULMONARY Hx Respiratory Disorders: Yes (SMOKED CIGARETTES PPD QUIT 2004) Hx Asthma: Yes Hx Chronic Obstructive Pulmonary Disease (COPD): Yes - NEUROLOGICAL Hx Paralysis: No - HEENT Hx HEENT Problems: Yes (wears glasses) - RENAL Hx Chronic Kidney Disease: No - ENDOCRINE/METABOLIC Hx Endocrine Disorders: Yes Hx Diabetes Mellitus Type 2: Yes - HEMATOLOGICAL/ONCOLOGICAL Hx Anemia: Yes Hx Blood Transfusions: Yes Hx Blood Transfusion Reaction: No - INTEGUMENTARY Hx Dermatological Problems: No - MUSCULOSKELETAL/RHEUMATOLOGICAL Hx Musculoskeletal Disorders: Yes (RA) - GASTROINTESTINAL Hx Gastrointestinal Disorders: Yes (COLON POLYPS,PYLORIC ULCER) - GENITOURINARY/GYNECOLOGICAL Hx Genitourinary Disorders: Yes Hx Prostate Problems: Yes (ENLARGED -BPH) - PSYCHIATRIC Hx Emotional Abuse: No Hx Physical Abuse: No Hx Substance Use: No - SURGICAL HISTORY Hx Cardiac Catheterization: Yes Hx Coronary Stent: Yes (6) - ANESTHESIA Hx Anesthesia: Yes Hx Anesthesia Reactions: No Hx Malignant Hyperthermia: No Meds Allergies/Adverse Reactions: Allergies Allergy/AdvReac Type Severity Reaction Status Date / Time No Known Allergies Allergy Verified 04/14/17 12:07 - Medications Medications: Current Medications Albuterol (Ventolin Hfa 90 Mcg/Actuation (8 G)) 1 puff IH PRN PRN PRN Reason: Shortness of Breath Albuterol Sulfate (Albuterol 0.083% Inhal Darleen (2.5 Mg/3 Ml) Ud) 2.5 mg IH PRN PRN PRN Reason: Shortness of Breath Atorvastatin Calcium (Lipitor) 80 mg PO DAILY DONNY Metoprolol Tartrate (Lopressor) 25 mg PO BID DONNY Montelukast Sodium (Singulair) 10 mg PO HS DONNY Non-Formulary Medication (Adalimumab [Humira Pen]) 40 mg SC Q15D [facility] Non-Formulary Medication (Amlodipine/Valsartan [Exforge 5-320 Mg Tablet]) 1 tab PO DAILY DONNY Non-Formulary Medication (Fluticasone/Vilanterol [Breo Ellipta 100-25 Mcg Inh]) 1 puff IH QAM [facility] Non-Formulary Medication (Ranolazine [Ranexa]) 500 mg PO BID DONNY Non-Formulary Medication (Umeclidinium [place] [Incruse Ellipta]) 1 puff INH QPM DONNY Pantoprazole Sodium (Protonix Inj) 40 mg IVP Q12 DONNY Tamsulosin HCl (Flomax) 0.4 mg PO DAILY [facility] Physical Exam - Constitutional Appears: Non-toxic, No Acute Distress - Head Exam Head Exam: ATRAUMATIC - ENT Exam ENT Exam: Mucous Membranes Moist - Respiratory Exam Respiratory Exam: Wheezes (Left lung base). absent: Accessory Muscle Use, Rales , Rhonchi, Respiratory Distress - Cardiovascular Exam Cardiovascular Exam: Tachycardia, +S1, +S2. absent: Diastolic murmur, Gallop, Rubs, Systolic Murmur - GI/Abdominal Exam GI & Abdominal Exam: Normal Bowel Sounds, Soft. absent: Distended, Firm, Guarding, Organomegaly, Rigid, Tenderness - Extremities Exam Extremities exam: Negative for: pedal edema, tenderness - Neurological Exam Neurological exam: Alert, Oriented x3 - Psychiatric Exam Psychiatric exam: Normal Affect, Normal Mood - Skin Skin Exam: Dry, Intact, Normal Color, Warm Results - Vital Signs Recent Vital Signs: Last Vital Signs Temp 98.6 F 04/14/17 07:40 Pulse 87 04/14/17 09:20 Resp 18 04/14/17 09:20 BP 130/68 04/14/17 09:20 Pulse Ox 99 04/14/17 09:20 - Labs Result Diagrams: 04/14/17 07:30 04/14/17 07:30 Assessment & Plan - Assessment and Plan (Free Text) Assessment: 66 year old male with past medical history of CAD s/p stent x2, RA, NIDDM, HTN, COPD, PUD, hx of duodenal AVM with bleeding requiring multiple transfusions in past presents to ED for blood transfusions. Hgb in ED is noted to be 8.1. Vital signs are stable. History of bleeding duodenal AVM - Transfuse 2 units - admit for observation to [facility] - Continue aspirin and plavix Case discussed with attending, Dr. Jones - Date & Time Date: 04/14/17 Time: 11:01 <Joey Jones MD - Last Filed: 04/14/17 18:22> Meds - Medications Medications: Current Medications Albuterol Sulfate (Albuterol 0.083% Inhal Darleen (2.5 Mg/3 Ml) Ud) 2.5 mg IH PRN PRN PRN Reason: Shortness of Breath Amlodipine Besylate (Norvasc) 5 mg PO DAILY [facility] Aspirin (Ecotrin) 81 mg PO DAILY [facility] Last Admin: 04/14/17 12:39 Dose: 81 mg Atorvastatin Calcium (Lipitor) 80 mg PO DAILY [facility] Last Admin: 04/14/17 12:39 Dose: 80 mg Clopidogrel Bisulfate (Plavix) 75 mg PO DAILY [facility] Last Admin: 04/14/17 12:41 Dose: Not Given Insulin Human Regular (Humulin R Low) 0 units SC ACHS [facility] PRN Reason: Protocol Last Admin: 04/14/17 18:14 Dose: Not Given Metoprolol Tartrate (Lopressor) 25 mg PO BID [facility] Last Admin: 04/14/17 18:14 Dose: Not Given Montelukast Sodium (Singulair) 10 mg PO HS [facility] Non-Formulary Medication (Adalimumab [Humira Pen]) 40 mg SC Q15D [facility] Non-Formulary Medication (Fluticasone/Vilanterol [Breo Ellipta 100-25 Mcg Inh]) 1 puff IH QAM [facility] Non-Formulary Medication (Ranolazine [Ranexa]) 500 mg PO BID [facility] Last Admin: 04/14/17 18:14 Dose: Not Given Non-Formulary Medication (Umeclidinium [place] [Incruse Ellipta]) 1 puff INH QPM [facility] Last Admin: 04/14/17 18:14 Dose: Not Given Pantoprazole Sodium (Protonix Inj) 40 mg IVP Q12 [facility] Last Admin: 04/14/17 12:40 Dose: Not Given Tamsulosin HCl (Flomax) 0.4 mg PO DAILY [facility] Last Admin: 04/14/17 12:39 Dose: 0.4 mg Valsartan (Diovan) 320 mg PO DAILY [facility] Results - Vital Signs Recent Vital Signs: Last Vital Signs Temp 98.1 F 06/14/17 18:03 Pulse 95 H 04/14/17 18:03 Resp 16 04/14/17 18:03 BP 131/86 04/14/17 18:03 Pulse Ox 98 04/14/17 11:25 - Labs Result Diagrams: 04/14/17 07:30 04/14/17 07:30 Labs: Laboratory Results - last 24 hr 04/14/17 16:12 POC Glucose (mg/dL) 115 H Attending/Attestation - Attestation I have personally seen and examined this patient.: Yes I have fully participated in the care of the patient.: Yes I have reviewed all pertinent clinical information: Yes Notes (Text): 04/14/17 18:19 Patient seen with GI fellow and medical rounds this am. I agree with assessment and plan. 66 yr old M with multiple comorbidities CAD s/p PCI on anti platelet admitted several times in the past year with anemia and gastrointestinal bleed. s/p multiple EGD - 03/31 - treated with bicap cauterization, clipping and sclerotherapy , 02/15 - EGD - Cautery of duodenal AVM, 01/28 - LA Grade A esophagitis, non-bleeding AVM in duodenum , 01/26 - Capsule endoscopy outpatient showed bleeding duodenal AVM. Now admitted for blood transfusions. Hb stable. No s/s of melena or overt GI bleeding. Can be discharged after transfusions. Diet as tolerated
[2017-04-14 11:25] VITALS: O2SAT 98
[2017-04-14 12:26] LABS: TROPONIN I 0.01 ng/mL
--- NOTE | 2017-04-14 13:14 | CP.PCM.HP ---
<Sang Gatica - Last Filed: 04/14/17 13:14> History of Present Illness - History of Present Illness History of Present Illness: Hospitalist H&P: 66 yo M with PMHx of CAD with six stents, COPD, rhematoid arthritis, DM2, and previous GI bleed (recent Endoscopy showing AVMs) presents as per PMD instructions to come to the ED for blood transfusions. Pt states that he had a low hemoglobin count of 8 yesterday and was advised by his PMD to come to the ED for blood transfusions. He states that a few days ago he had an episode of black tarry stool but states it has now resolved. He currently has no complaints. He was present to [facility] [place] last month for similar complaints. He denies any headache, dizziness, weakness, shortness of breath, chest pain, abdominal pain, nausea, vomiting, diarrhea, hematemesis, melena, hematochezia. PMHx of CAD with stents, COPD, rhematoid arthritis, DM2 Psxhx: 6 coronary stents Allergies: NKA Medications: refer to [facility] Social: former smoker, denies etoh use, and denies illicit drugs Present on Admission - Present on Admission Any Indicators Present on Admission: No Review of Systems - Review of Systems All systems: reviewed and no additional remarkable complaints except (H&P) Past Patient History - Infectious Disease Hx of Infectious Diseases: None - Past Medical History & Family History Past Medical History?: Yes - Past Social History Smoking Status: Former Smoker Chewing Tobacco Use: No Cigar Use: No - CARDIAC Hx Hypertension: Yes Hx Pacemaker: No - PULMONARY Hx Respiratory Disorders: Yes (SMOKED CIGARETTES PPD QUIT 2004) Hx Asthma: Yes Hx Chronic Obstructive Pulmonary Disease (COPD): Yes - NEUROLOGICAL Hx Paralysis: No - HEENT Hx HEENT Problems: Yes (wears glasses) - RENAL Hx Chronic Kidney Disease: No - ENDOCRINE/METABOLIC Hx Endocrine Disorders: Yes Hx Diabetes Mellitus Type 2: Yes - HEMATOLOGICAL/ONCOLOGICAL Hx Anemia: Yes Hx Blood Transfusions: Yes Hx Blood Transfusion Reaction: No - INTEGUMENTARY Hx Dermatological Problems: No - MUSCULOSKELETAL/RHEUMATOLOGICAL Hx Musculoskeletal Disorders: Yes (RA) - GASTROINTESTINAL Hx Gastrointestinal Disorders: Yes (COLON POLYPS,PYLORIC ULCER) - GENITOURINARY/GYNECOLOGICAL Hx Genitourinary Disorders: Yes Hx Prostate Problems: Yes (ENLARGED -BPH) - PSYCHIATRIC Hx Emotional Abuse: No Hx Physical Abuse: No Hx Substance Use: No - SURGICAL HISTORY Hx Cardiac Catheterization: Yes Hx Coronary Stent: Yes (6) - ANESTHESIA Hx Anesthesia: Yes Hx Anesthesia Reactions: No Hx Malignant Hyperthermia: No Meds Allergies/Adverse Reactions: Allergies Allergy/AdvReac Type Severity Reaction Status Date / Time No Known Allergies Allergy Verified 04/14/17 12:07 Physical Exam - Constitutional Appears: No Acute Distress - Head Exam Head Exam: ATRAUMATIC, NORMAL INSPECTION, NORMOCEPHALIC - Eye Exam Eye Exam: EOMI, Normal appearance, PERRL Pupil Exam: NORMAL ACCOMODATION, PERRL - ENT Exam ENT Exam: Mucous Membranes Moist, Normal Exam - Neck Exam Neck exam: Positive for: Normal Inspection - Respiratory Exam Respiratory Exam: Clear to Auscultation Bilateral, NORMAL BREATHING PATTERN. absent: Rales, Rhonchi, Wheezes - Cardiovascular Exam Cardiovascular Exam: REGULAR RHYTHM, RRR, +S1, +S2 - GI/Abdominal Exam GI & Abdominal Exam: Normal Bowel Sounds, Soft. absent: Tenderness - Extremities Exam Extremities exam: Positive for: normal inspection. Negative for: calf tenderness - Back Exam Back exam: NORMAL INSPECTION - Neurological Exam Neurological exam: Alert, CN II-XII Intact, Normal Gait, Oriented x3, Reflexes Normal - Psychiatric Exam Psychiatric exam: Normal Affect, Normal Mood - Skin Skin Exam: Dry, Intact, Normal Color, Warm Results - Vital Signs Recent Vital Signs: Last Vital Signs Temp 97.8 F 04/14/17 12:17 Pulse 95 H 04/14/17 12:17 Resp 16 04/14/17 12:17 BP 149/93 H 04/14/17 12:17 Pulse Ox 98 04/14/17 11:25 - Labs Result Diagrams: 04/14/17 07:30 04/14/17 07:30 Assessment & Plan - Assessment and Plan (Free Text) Assessment: 66 yo M with PMHx of CAD with six stents, COPD, rhematoid arthritis, DM2, and previous GI bleed presents for GI bleed and blood transfusions. 1. GI bleed - Hb is 8.1 today - 2 units PRBC ordered. Consent obtained. - F/u GI - Dr Mk kelley - spoke to Dr Ibarra and agreed on continuing Aspirin and Plavix. - Protonix 40mg IVp BID - CBC following blood transfusions - Daily CBc and CMP 2. CAD hx of 6 stents - Cont Aspirin and Plavix - Cont Metoprolol, Lipitor 3. Hypokalemia - Repleted with KCL 40meq stat - Replete as needed 4. DM - ISS as protocol ACHS 5. HTN - Cont Amlodipine and Valsartan 6. GI/ DVT ppx - Protonix and SCDs - HHD Case and plan was seen reviewed and discussed with Dr Ibarra. <Kenneth Ibarra - Last Filed: 04/15/17 15:29> Results - Vital Signs Recent Vital Signs: Last Vital Signs Temp 97.9 F 04/14/17 19:52 Pulse 91 H 04/14/17 19:52 Resp 20 04/14/17 19:52 BP 126/76 04/14/17 19:52 Pulse Ox 98 04/14/17 11:25 - Labs Result Diagrams: 04/14/17 21:25 04/14/17 07:30 Labs: Laboratory Results - last 24 hr 04/14/17 04/14/17 16:12 21:25 WBC 7.1 RBC 4.94 Hgb 10.9 L Hct 34.1 L MCV 69.0 L MCH 22.1 L MCHC 32.0 RDW 22.4 H Plt Count 360 MPV 8.8 Gran % 58.8 Lymph % (Auto) 17.2 L [place] % (Auto) 13.7 H Eos % (Auto) 9.6 H Baso % (Auto) 0.7 Gran # 4.16 Lymph # 1.2 Brew[place] # 1.0 H Eos # 0.7 Baso # 0.05 POC Glucose (mg/dL) 115 H Attending/Attestation - Attestation I have personally seen and examined this patient.: Yes I have fully participated in the care of the patient.: Yes I have reviewed all pertinent clinical information: Yes Notes (Text): 04/15/17 15:27 attending note; Patient seen and examined with resident. Patient is a 66 year old Male with PMHx of CAD with six stents, COPD, rhematoid arthritis, DM2, and previous GI bleed (recent Endoscopy showing AVMs) presents as per GI instructions to come to the ED for blood transfusions. currently hemoglobin is 8.1. Hemodynamically stable. No active bleeding. We'll transfuse 2 units PRBC today. Case discussed with GI in detail. Will continue aspirin, plavix and monitor closely. upon discharge the patient follow up with PMD Dr. lazo. Plan discussed with patient in detail.
[2017-04-14] MEDS ORDERED: Pneumococcal 23-Valent Vaccine IM ONE (14:05)
[2017-04-14] MEDS ORDERED: Insulin Reg-LOW-Coverage SC SCH (16:30)
[2017-04-14] MEDS ORDERED: Non Formulary Medication (Umeclidinium Bromide [Incruse Ellipta] 1 PUFF) INH SCH ×2 (18:00)
[2017-04-14 20:06] VITALS: BP 126/76; PULSE 91; RESP 20; TEMP 97.9
[2017-04-14 21:30] LABS: ADD MANUAL DIFF? NO
[2017-04-14 22:13] LABS: HEMATOCRIT 34.1 % (42.0-52.0); MEAN CORPUSCULAR HEMOGLOBIN 22.1 pg (25.0-35.0); WHITE BLOOD COUNT 7.1 10^3/ul (4.5-11.0)
[2017-04-14 22:14] LABS: GRAN % 58.8 % (50.0-68.0); MEAN PLATELET VOLUME 8.8 fl (7.0-11.0); PLATELET COUNT 360 10^3/uL (120.0-450.0); RED CELL DISTRIBUTION WIDTH 22.4 % (11.5-14.5)
[2017-04-14 22:15] LABS: BASO # 0.05 K/mm3 (0.0-2.0); BASO % 0.7 % (0.0-3.0); EOS # 0.7 (0.0-0.7); EOS % 9.6 % (1.5-5.0); GRAN # 4.16 (1.4-6.5); LYMPH # 1.2 (1.2-3.4); LYMPH % 17.2 % (22.0-35.0); MONO % 13.7 % (1.0-6.0)
--- NOTE | 2017-04-15 09:42 | CP.PCM.DIS ---
<Sang Gatica - Last Filed: 04/15/17 13:35> Provider - Provider Date of Admission: 04/14/17 09:47 Attending physician: Kenneth Ibarra MD Primary care physician: Ulises Bailey MD Consults: GI Time Spent in preparation of Discharge (in minutes): 45 Hospital Course - Lab Results Lab Results: Most Recent Lab Values WBC 7.1 10^3/ul (4.5-11.0) 04/14/17 21: RBC 4.94 10^6/uL (3.5-6.1) 04/14/17 21: Hgb 10.9 gm/dL (14.0-18.0) L 04/14/17 21: Hct 34.1 % (42.0-52.0) L 04/14/17 21: MCV 69.0 fL (80.0-105.0) L 04/14/17 21: MCH 22.1 pg (25.0-35.0) L 04/14/17 21: MCHC 32.0 g/dl (31.0-37.0) 04/14/17 21: RDW 22.4 % (11.5-14.5) H 04/14/17 21: Plt Count 360 10^3/uL (120.0-450.0) 04/14/17 21: MPV 8.8 fl (7.0-11.0) 04/14/17 21: Gran % 58.8 % (50.0-68.0) 04/14/17 21: Lymph % (Auto) 17.2 % (22.0-35.0) L 04/14/17 21:25 [place] % (Auto) 13.7 % (1.0-6.0) H 04/14/17 21: Eos % (Auto) 9.6 % (1.5-5.0) H 04/14/17: Baso % (Auto) 0.7 % (0.0-3.0) 04/14/17 21:25 Gran # 4.16 (1.4-6.5) 04/14/17 21: Lymph # 1.2 (1.2-3.4) 04/14/17 21:25 [place] # 1.0 (0.1-0.6) H 04/14/17 21:25 Eos # 0.7 (0.0-0.7) 04/14/17 21:25 Baso # 0.05 K/mm3 (0.0-2.0) 04/14/17 21:25 PT 10.9 Seconds (9.9-11.8) 04/14/17 07:30 INR 1.01 (0.93-1.08) 04/14/17 07:30 APTT 25.2 Seconds (23.7-30.8) 04/14/17 07:30 Sodium 141 mmol/L (132-148) 04/14/17 07:30 Potassium 3.4 mmol/L (3.6-5.0) L 04/14/17 07:30 Chloride 103 mmol/L (98-107) 04/14/17 07:30 Carbon Dioxide 27 mmol/L (21-33) 04/14/17 07:30 Anion Gap 14 (10-20) 04/14/17 07:30 BUN 13 mg/dL (7-21) 04/14/17 07:30 Creatinine 1.2 mg/dL (0.5-1.4) 04/14/17 07:30 Est GFR ( Amer) > 60 04/14/17 07:30 Est GFR (Non-Af Amer) > 60 04/14/17 07:30 POC Glucose (mg/dL) 115 mg/dL (65-110) H 04/14/17 16:12 Random Glucose 130 mg/dL (70-110) H 04/14/17 07:30 Calcium 8.9 mg/dL (8.4-10.5) 04/14/17 07:30 Phosphorus 3.0 mg/dL (2.5-4.5) 04/14/17 07:30 Magnesium 2.0 mg/dL (1.7-2.2) 04/14/17 07:30 Total Bilirubin 0.5 mg/dL (0.2-1.3) 04/14/17 07:30 AST 67 U/L (15-59) H 04/14/17 07:30 ALT 18 U/L (7-56) 04/14/17 07:30 Alkaline Phosphatase 106 U/L (38-133) 04/14/17 07:30 Troponin I 0.01 ng/mL 04/14/17 07:30 NT-Pro-B Natriuret Pep 79.3 pg/mL (0-450) 04/14/17 07:30 Total Protein 7.7 g/dL (5.8-8.3) 04/14/17 07:30 Albumin 4.5 g/dL (3.0-4.8) 04/14/17 07:30 Globulin 3.2 gm/dL 04/14/17 07:30 Albumin/Globulin Ratio 1.4 (1.1-1.8) 04/14/17 07:30 Blood Type O POSITIVE 04/14/17 07:55 Antibody Screen Negative 04/14/17 07:55 Crossmatch See Detail 04/14/17 07:55 BBK History Checked Patient has bt 04/14/17 07:55 - Hospital Course Hospital Course: 66 yo M with PMHx of CAD with six stents, COPD, rhematoid arthritis, DM2, and previous GI bleed (recent Endoscopy showing AVMs) presents as per GI instructions to come to the ED for low hemoglobin and blood transfusions. Pt states that a few days ago he had black tarry stool and no recent episodes of bleeding in the past few days. In the ED basic labwork was done. Hemoglobin was found to be 8.1. Consent was obtained for transfusing blood and 1 unit of PRBC was started in the ED and pt was admitted to the floor for continued transfusion and observation in which he was seen by me accompanied by Dr Ibarra . After the first unit of blood was transfused the patient was started to get very agitated since it took 1 hour to get the second unit started. I was called by the nurse to speak to the patient. Pt was continuously agitated, with his on the phone. He demanded on being treated with his second unit right away so he can go home right away after the transfusion. It was explained to him that it is unsafe for him to go home especially since he had episode of black tarry stool a few days ago but now he denies having any recent episodes. Pts over the phone was very demanding as well. I spoke to the nurse to hang the next unit of PRBC chyna. Discharge order was placed so the patient can leave after. Dr Ibarra spoke to the patient once again. Agreed with plan for patient to leave after transfusion if stable. DD: anemia / GI bleed Discharge Exam - Head Exam Head Exam: ATRAUMATIC, NORMAL INSPECTION, NORMOCEPHALIC - Eye Exam Eye Exam: EOMI, Normal appearance, PERRL Pupil Exam: NORMAL ACCOMODATION, PERRL - Respiratory Exam Respiratory Exam: Clear to PA & Lateral, NORMAL BREATHING PATTERN, UNREMARKABLE. absent: Rales, Rhonchi, Wheezes - Cardiovascular Exam Cardiovascular Exam: REGULAR RHYTHM, RRR, +S1, +S2 - GI/Abdominal Exam GI & Abdominal Exam: Normal Bowel Sounds, Soft. absent: Tenderness - Neurological Exam Neurological exam: Alert, CN II-XII Intact, Normal Gait, Oriented x3, Reflexes Normal - Psychiatric Exam Psychiatric exam: Normal Affect, Normal Mood - Skin Skin Exam: Dry, Intact, Normal Color, Warm Discharge Plan - Follow Up Plan Condition: STABLE Disposition: HOME/ ROUTINE Patient education suggested?: Yes Instructions: Gastrointestinal Bleeding (DC), Rectal Bleeding (DC), Blood Transfusion (DC), Chronic Hypertension (DC), Anemia (DC) Additional Instructions: Follow up with GI in 1 week. Follow up with Dr Bailey in 2-3 days. Follow up with Cardiology Dr Baez in 1 week. Return to ED if your symptoms recur. Referrals: Ulises Bailey MD [Primary Care Provider] - <Kenneth Ibarra - Last Filed: 04/15/17 15:39> Provider - Provider Date of Admission: 04/14/17 09:47 Attending physician: Kenneth Ibarra MD Primary care physician: Ulises Bailey MD Hospital Course - Lab Results Lab Results: Most Recent Lab Values WBC 7.1 10^3/ul (4.5-11.0) 04/14/17 21:25 RBC 4.94 10^6/uL (3.5-6.1) 04/14/17 21:25 Hgb 10.9 gm/dL (14.0-18.0) L 04/14/17 21:25 Hct 34.1 % (42.0-52.0) L 04/14/17 21:25 MCV 69.0 fL (80.0-105.0) L 04/14/17 21:25 MCH 22.1 pg (25.0-35.0) L 04/14/17 21:25 MCHC 32.0 g/dl (31.0-37.0) 04/14/17 21:25 RDW 22.4 % (11.5-14.5) H 04/14/17 21:25 Plt Count 360 10^3/uL (120.0-450.0) 04/14/17 21:25 MPV 8.8 fl (7.0-11.0) 04/14/17 21:25 Gran % 58.8 % (50.0-68.0) 04/14/17 21:25 Lymph % (Auto) 17.2 % (22.0-35.0) L 04/14/17 21:25 [place] % (Auto) 13.7 % (1.0-6.0) H 04/14/17 21:25 Eos % (Auto) 9.6 % (1.5-5.0) H 04/14/17 21:25 Baso % (Auto) 0.7 % (0.0-3.0) 04/14/17 21:25 Gran # 4.16 (1.4-6.5) 04/14/17 21:25 Lymph # 1.2 (1.2-3.4) 04/14/17 21:25 [place] # 1.0 (0.1-0.6) H 04/14/17 21:25 Eos # 0.7 (0.0-0.7) 04/14/17 21:25 Baso # 0.05 K/mm3 (0.0-2.0) 04/14/17 21:25 PT 10.9 Seconds (9.9-11.8) 04/14/17 07:30 INR 1.01 (0.93-1.08) 04/14/17 07:30 APTT 25.2 Seconds (23.7-30.8) 04/14/17 07:30 Sodium 141 mmol/L (132-148) 04/14/17 07:30 Potassium 3.4 mmol/L (3.6-5.0) L 04/14/17 07:30 Chloride 103 mmol/L (98-107) 04/14/17 07:30 Carbon Dioxide 27 mmol/L (21-33) 04/14/17 07:30 Anion Gap 14 (10-20) 04/14/17 07:30 BUN 13 mg/dL (7-21) 04/14/17 07:30 Creatinine 1.2 mg/dL (0.5-1.4) 04/14/17 07:30 Est GFR ( Amer) > 60 04/14/17 07:30 Est GFR (Non-Af Amer) > 60 04/14/17 07:30 POC Glucose (mg/dL) 115 mg/dL (65-110) H 04/14/17 16:12 Random Glucose 130 mg/dL (70-110) H 04/14/17 07:30 Calcium 8.9 mg/dL (8.4-10.5) 04/14/17 07:30 Phosphorus 3.0 mg/dL (2.5-4.5) 04/14/17 07:30 Magnesium 2.0 mg/dL (1.7-2.2) 04/14/17 07:30 Total Bilirubin 0.5 mg/dL (0.2-1.3) 04/14/17 07:30 AST 67 U/L (15-59) H 04/14/17 07:30 ALT 18 U/L (7-56) 04/14/17 07:30 Alkaline Phosphatase 106 U/L (38-133) 04/14/17 07:30 Troponin I 0.01 ng/mL 04/14/17 07:30 NT-Pro-B Natriuret Pep 79.3 pg/mL (0-450) 04/14/17 07:30 Total Protein 7.7 g/dL (5.8-8.3) 04/14/17 07:30 Albumin 4.5 g/dL (3.0-4.8) 04/14/17 07:30 Globulin 3.2 gm/dL 04/14/17 07:30 Albumin/Globulin Ratio 1.4 (1.1-1.8) 04/14/17 07:30 Blood Type O POSITIVE 04/14/17 07:55 Antibody Screen Negative 04/14/17 07:55 Crossmatch See Detail 04/14/17 07:55 BBK History Checked Patient has bt 04/14/17 07:55 Attending/Attestation - Attestation I have personally seen and examined this patient.: Yes I have fully participated in the care of the patient.: Yes I have reviewed all pertinent clinical information, including history, physical exam and plan: Yes Notes (Text): 04/15/17 15:36 attending note; Patient seen and examined with resident. Patient is a 66 year old Male with PMHx of CAD with six stents, COPD, rhematoid arthritis, DM2, and previous GI bleed (recent Endoscopy showing AVMs) presents as per GI instructions to come to the ED for blood transfusions. Got 2 units PRBC today. repeat Hb 10.9. Patient is stable. Case discussed with GI in detail. Will continue aspirin, plavix and monitor closely. upon discharge the patient follow up with PMD Dr. lazo. Plan discussed with patient and in detail. Diagnosis; anemia s/p blood transfusion angiodysplasia CAD with stent
[2017-04-15] MEDS ORDERED: Non Formulary Medication (Fluticasone/Vilanterol [Breo Ellipta 100-25 Mcg Inh] 1 PUFF) IH SCH (10:00)
== END 2017-04-14 22:29 | disposition home or self-care (01) ==
LOC: ED 07:22 → ERH 09:47 → 5RSO 11:55
PROVIDERS: ADMIT Internal Medicine; ATTEND Internal Medicine
DX: K92.2 Gastrointestinal hemorrhage, unspecified (principal); D64.9 Anemia, unspecified; M06.9 Rheumatoid arthritis, unspecified; J44.9 Chronic obstructive pulmonary disease, unspecified; I25.10 Atherosclerotic heart disease of native coronary artery without angina pectoris; K31.819 Angiodysplasia of stomach and duodenum without bleeding; E11.9 Type 2 diabetes mellitus without complications; E87.6 Hypokalemia; I10 Essential (primary) hypertension; N40.0 Benign prostatic hyperplasia without lower urinary tract symptoms; K25.9 Gastric ulcer, unspecified as acute or chronic, without hemorrhage or perforation; K29.80 Duodenitis without bleeding; K20.9 Esophagitis, unspecified; Z79.02 Long term (current) use of antithrombotics/antiplatelets; Z79.82 Long term (current) use of aspirin; Z87.891 Personal history of nicotine dependence; Z95.5 Presence of coronary angioplasty implant and graft
CPT/HCPCS: 36430; 80053; 82948; 83735; 83880; 84100; 84484; 85025; 85610; 85730; 86850; 86900; 86920; 99284; G0378; P9016